=== PATIENT | male | born 1950 | race Caucasian/White ===

== ENCOUNTER 2020-06-20 13:00 | Emergency (ER) | payer OTHER, MEDICARE ==
[2020-06-20 13:56] LABS: Absolute Lymphocytes (CBC) 1.3 K/uL (0.7-4.9); Basophils % 0.7 % (0-1.3); Hematocrit 38.1 % (39.6-49.0); Lymphocytes % 17.2 % (15.3-44.8); MPV 9.7 fL (7.6-11.3); RBC Red Blood Cell Count 3.97 M/uL (4.33-5.43)
[2020-06-20 14:03] LABS: Protime INR 1.03
[2020-06-20 14:15] LABS: ALT/SGPT 30 U/L (12-78); AST/SGOT 20 U/L (15-37); Albumin 3.7 g/dL (3.4-5.0); Alkaline Phosphatase 46 U/L (45-117); BUN Blood Urea Nitrogen 15 mg/dL (7-18); Bicarbonate 24 mmol/L (21-32); Bilirubin Direct 0.2 mg/dL (0-0.2); Bilirubin Total 0.6 mg/dL (0.2-1.0); Glucose Level 143 mg/dL (74-106); NT PRO-BNP 60 pg/mL (<125); Potassium 3.6 mmol/L (3.5-5.1); Sodium Level 140 mmol/L (136-145); Troponin (Emerg Dept Use Only) < 0.02 ng/mL (0.0-0.045)
--- NOTE | 2020-06-20 14:28 | RAD REPORT ---
EXAM DESCRIPTION: US - Extremity Venous Uni Ltd - 06/20/2020 2:21 pm CLINICAL HISTORY: pain, swelling COMPARISON: None. TECHNIQUE: Real-time sonographic evaluation of the left lower extremity deep venous system was perfo rmed. FINDINGS: Normal compressibility, flow augmentation, phasic flow and spontaneous flow are identified in the left lower extremity common femoral, superficial femoral, popliteal and posterior tibial vein s. No intraluminal filling defects seen. IMPRESSION: No DVT in the left lower extremity.
--- NOTE | 2020-06-20 14:33 | ER ---
Nurse's Notes [facility] Name: Jignesh Buchanan Age: 70 yrs Sex: Male : 1950 Arrival Date: 06/20/2020 Time: 13:05 Bed 7 Private MD: Jefry Nagel B Diagnosis: Edema, unspecified Presentation: 06/20 13:19 Chief complaint: Patient states: "Today I noticed I have swelling in my ankle and lower aj1 leg I've had a little bit of tingling for the last week, and I have discomfort in the muscle of my calf. I didn't have any exercise or accident that could have caused it". Coronavirus screen: Client denies travel out of the [place] in the last 14 days. At this time, the client does not indicate any symptoms associated with coronavirus-19. Ebola Screen: Patient denies travel to an Ebola-affected area in the 21 days before illness onset. Initial Sepsis Screen: Does the patient meet any 2 criteria? No. Patient's initial sepsis screen is negative. Does the patient have a suspected source of infection? No. Patient's initial sepsis screen is negative. Risk Assessment: Do you want to hurt yourself or someone else? Patient reports no desire to harm self or others. Onset of symptoms was June 2020. 13:19 Method Of Arrival: Wheelchair aj1 13:19 Acuity: NERI 3 aj1 Triage Assessment: 13:24 General: Appears in no apparent distress. comfortable, Behavior is calm, cooperative, aj1 appropriate for age. Pain: Denies pain. Neuro: Level of Consciousness is awake, alert, obeys commands. Cardiovascular: Patient's skin is warm and dry. Respiratory: Airway is patent Respiratory effort is even, unlabored, Respiratory pattern is regular, symmetrical. Historical: - Allergies: 13:24 No Known Allergies; aj1 - Home Meds: 13:24 amlodipine 5 mg tab 1 tab once daily [Active]; doxazosin 4 mg oral tab 1 tab once daily aj1 [Active]; doxycycline hyclate 75 mg Oral TbEC 1 tab once daily [Active]; telmisartan-hydrochlorothiazid 80-12.5 mg oral tab 1 tab once daily [Active]; metformin 500 mg Oral Tb24 1 tab 2 times per day [Active]; rosuvastatin 5 mg oral tab 1 tab once daily [Active]; lunesta-eszopiclone 3 mg nightly [Active]; - PMHx: 13:24 Hypertension; Hyperlipidemia; pre-diabetic; aj1 - Immunization history:: Adult Immunizations up to date. - Social history:: Smoking status: Patient/guardian denies using tobacco. Screenin:00 Abuse screen: Denies threats or abuse. Nutritional screening: No deficits noted. em Tuberculosis screening: No symptoms or risk factors identified. Fall Risk None identified. Assessment: 14:00 General: Appears in no apparent distress. comfortable, Behavior is calm, cooperative, em appropriate for age, Denies fever. Pain: Complains of pain in left ospina and anterior aspect of left ankle Pain currently is 0 out of 10 on a pain scale. Neuro: Level of Consciousness is awake, alert, obeys commands, Oriented to person, place, time, situation, Appropriate for age. Cardiovascular: Capillary refill < 3 seconds Patient's skin is warm and dry. Respiratory: Airway is patent Respiratory effort is even, unlabored, Respiratory pattern is regular, symmetrical. GI: Patient currently denies nausea, vomiting. Derm: Skin is intact, is healthy with good turgor, Skin is pink, warm \\T\\ dry. Musculoskeletal: Capillary refill < 3 seconds, Range of motion: intact in all extremities, Swelling present in left ospina and anterior aspect of left ankle. 15:06 Reassessment: Patient appears in no apparent distress at this time. Patient and/or em family updated on plan of care and expected duration. Pain level reassessed. Patient is alert, oriented x 3, equal unlabored respirations, skin warm/dry/pink. Vital Signs: 13:19 BP 160 / 79; Pulse 81; Resp 18; Temp 97.6(TE); Pulse Ox 98% on R/A; Weight 110.68 kg aj1 (R); Height 6 ft. 0 in. (182.88 cm) (R); Pain 0/10; 14:19 BP 124 / 66; Pulse 65; Resp 17; Temp 97.8(TE); Pulse Ox 98% on R/A; mh5 15:05 BP 123 / 68; Pulse 61; Resp 18; Pulse Ox 96% on R/A; em 13:19 Body Mass Index 33.09 (110.68 kg, 182.88 cm) 1 ED Course: 13:05 Patient arrived in ED. as 13:06 Jefry Nagel MD is Private Physician. as 13:21 Triage completed. aj1 13:24 Arm band placed on Patient placed in an exam room. aj1 13:26 Pedro Pierce, RN is Primary Nurse. em 13:27 Gilberto De Souza PA is PHCP. jm 13:27 Nik Houston MD is Attending Physician. jmm 14:09 Patient has correct armband on for positive identification. Placed in gown. Bed in low mh5 position. Call light in reach. Side rails up X 1. Warm blanket given. Pillow given. campus monitor on. Pulse ox on. NIBP on. 14:09 Initial lab(s) drawn, by me, sent to lab. Inserted saline lock: 22 gauge in left 5 antecubital area, using aseptic technique. Blood collected. 14:22 US Extremity Venous Unilateral Ltd In Process Unspecified. EDMS 14:22 Ultrasound completed. Patient tolerated well. Notified [employer]AIL INTERIOR DESIGNER/PA . sg3 14:31 Jefry Nagel MD is Referral Physician. [facility] 15:05 No provider procedures requiring assistance completed. IV discontinued, intact, em bleeding controlled, No redness/swelling at site. Pressure dressing applied. Administered Medications: No medications were administered Outcome: 14:32 Discharge ordered by . [facility] 15:05 Discharged to home ambulatory. em 15:05 Condition: good 15:05 Discharge instructions given to patient, Instructed on discharge instructions, follow up and referral plans. Demonstrated understanding of instructions, follow-up care. 15:07 Patient left the ED. em Signatures: Dispatcher [employer] EDMS Zoraida Frank, RUFINO RN aj Gilberto De Souza PA PA jmm Munoz, Edgar, RUFINO RN Melba Franco Maria [facility] Eveline Lay sg3
--- NOTE | 2020-06-20 14:33 | EDPHYS ---
Physician Documentation [facility] Name: Jignesh Buchanan Age: 70 yrs Sex: Male : 1950 Arrival Date: 06/20/2020 Time: 13:05 Bed 7 Private MD: Jefry Nagel B ED Physician Nik Houston HPI: 06/20 13:31 This 70 yrs old Male presents to ER via Wheelchair with complaints of Leg jmm Swelling, Leg Pain. 13:31 The patient presents with swelling. Onset: The symptoms/episode began/occurred jmm gradually, 3 day(s) ago. Modifying factors: The symptoms are alleviated by nothing. the symptoms are aggravated by nothing. Associated signs and symptoms: Pertinent negatives fever. This is a 70 year old male with a history of htn, hlp, that presents to the ED with complaints of left leg pain and swelling beginnning approx 3 days ago. Denies fever, chest pain, shortness of breath. . Historical: - Allergies: 13:24 No Known Allergies; aj1 - Home Meds: 13:24 amlodipine 5 mg tab 1 tab once daily [Active]; doxazosin 4 mg oral tab 1 tab once daily aj1 [Active]; doxycycline hyclate 75 mg Oral TbEC 1 tab once daily [Active]; telmisartan-hydrochlorothiazid 80-12.5 mg oral tab 1 tab once daily [Active]; metformin 500 mg Oral Tb24 1 tab 2 times per day [Active]; rosuvastatin 5 mg oral tab 1 tab once daily [Active]; lunesta-eszopiclone 3 mg nightly [Active]; - PMHx: 13:24 Hypertension; Hyperlipidemia; pre-diabetic; aj1 - Immunization history:: Adult Immunizations up to date. - Social history:: Smoking status: Patient/guardian denies using tobacco. ROS: 13:31 Constitutional: Negative for fever, chills, and weight loss, Cardiovascular: Negative jmm for chest pain, palpitations, and edema, Respiratory: Negative for shortness of breath, cough, wheezing, and pleuritic chest pain. 13:31 MS/extremity: Positive for swelling. 13:31 All other systems are negative. Exam: 13:31 Constitutional: This is a well developed, well nourished patient who is awake, alert, jmm and in no acute distress. Head/Face: atraumatic. Eyes: EOMI, no conjunctival erythema appreciated ENT: Moist Mucus Membranes Neck: Trachea midline, Supple Chest/axilla: Normal chest wall appearance and motion. Cardiovascular: Regular rate and rhythm. No edema appreciated Respiratory: Normal respirations, no respiratory distress appreciated Abdomen/GI: Non distended, soft Back: Normal ROM Skin: General appearance color normal 13:31 Musculoskeletal/extremity: edema noted to the left lower leg, full dorsalis pulse, NVI. 13:31 Skin: Appearance: Color: normal in color. 13:31 Neuro: Orientation: is normal, Mentation: is normal, Memory: is normal. 13:31 Psych: Behavior/mood is pleasant, cooperative. Vital Signs: 13:19 BP 160 / 79; Pulse 81; Resp 18; Temp 97.6(TE); Pulse Ox 98% on R/A; Weight 110.68 kg aj1 (R); Height 6 ft. 0 in. (182.88 cm) (R); Pain 0/10; 14:19 BP 124 / 66; Pulse 65; Resp 17; Temp 97.8(TE); Pulse Ox 98% on R/A; mh5 15:05 BP 123 / 68; Pulse 61; Resp 18; Pulse Ox 96% on R/A; em 13:19 Body Mass Index 33.09 (110.68 kg, 182.88 cm) aj1 MDM: 13:31 Patient medically screened. [facility] 14:31 Data reviewed: vital signs, nurses notes. Counseling: I had a detailed discussion with [facility] the patient and/or guardian regarding: the historical points, exam findings, and any diagnostic results supporting the discharge/admit diagnosis, lab results, radiology results, the need for outpatient follow up, to return to the emergency department if symptoms worsen or persist or if there are any questions or concerns that arise at home. ED course: Patient is alert and non toxic in appearance in the ED. Patient is advised to follow up with pcp and otherwise given strict return precautions. Patient understood and agrees with the plan of care. . 06/20 13:39 Order name: Basic Metabolic Panel; Complete Time: 14:19 [facility] 06/20 13:39 Order name: CBC with Diff; Complete Time: 14:19 [facility] 06/20 13:39 Order name: LFT's; Complete Time: 14:19 [facility] 06/20 13:39 Order name: Magnesium; Complete Time: 14:19 [facility] 06/20 13:39 Order name: NT PRO-BNP; Complete Time: 14:19 [facility] 06/20 13:39 Order name: PT-INR; Complete Time: 14:19 [facility] 06/20 13:39 Order name: Troponin (emerg Dept Use Only); Complete Time: 14:19 [facility] 06/20 13:39 Order name: EKG; Complete Time: 13:40 [facility] 06/20 13:39 Order name: Cardiac monitoring; Complete Time: 13:44 [facility] 06/20 13:39 Order name: EKG - Nurse/Tech; Complete Time: 14:49 [facility] 06/20 13:39 Order name: IV Saline Lock; Complete Time: 14:49 [facility] 06/20 13:39 Order name: Labs collected and sent; Complete Time: 13:44 [facility] 06/20 13:39 Order name: O2 Per Protocol; Complete Time: 13:44 [facility] 06/20 13:39 Order name: US Extremity Venous Unilateral Ltd; Complete Time: 14:30 [facility] 06/20 13:39 Order name: O2 Sat Monitoring; Complete Time: 13:44 jm Administered Medications: No medications were administered Disposition: 06/21 06:06 Co-signature as Attending Physician, Nik Houston MD I agree with the assessment and [facility] plan of care. Disposition: 06/20/20 14:32 Discharged to Home. Impression: Edema, unspecified. - Condition is Stable. - Discharge Instructions: Peripheral Edema. - Medication Reconciliation Form, Thank You Letter, Antibiotic Education, Prescription Opioid Use form. - Follow up: Jefry Nagel MD; When: 2 - 3 days; Reason: Recheck today's complaints, Continuance of care, Re-evaluation by your physician. Signatures: Dispatcher [employer] Zoraida Leahy, RN RN aj1 Nik Houston MD MD cha Mickail, Joel, PA PA jmm Munoz, Edgar RN RN em Corrections: (The following items were deleted from the chart) 06/20 15:07 14:32 06/20/2020 14:32 Discharged to Home. Impression: Edema, unspecified. Condition is em Stable. Forms are Medication Reconciliation Form, Thank You Letter, Antibiotic Education, Prescription Opioid Use. Follow up: Jefry Nagel; When: 2 - 3 days; Reason: Recheck today's complaints, Continuance of care, Re-evaluation by your physician. bijan
[2020-06-20 15:28] VITALS: TEMP 97.8
[2020-06-20 15:29] VITALS: BP 123/68; O2SAT 96
== END 2020-06-20 15:07 | disposition home or self-care (01) ==
LOC: ER 13:00
DX: R60.9 Edema, unspecified (principal); I10 Essential (primary) hypertension; E78.5 Hyperlipidemia, unspecified; R73.03 Prediabetes
CPT/HCPCS: 36415; 80048; 80076; 83735; 83880; 84484; 85025; 85610; 93005; 93971; 99284

== ENCOUNTER 2020-06-23 18:28 | Emergency (ER) | payer OTHER, MEDICARE ==
[2020-06-23 21:36] LABS: Absolute Lymphocytes (CBC) 0.8 K/uL (0.7-4.9); Basophils % 0.8 % (0-1.3); Hematocrit 38.3 % (39.6-49.0); Lymphocytes % 11.5 % (15.3-44.8); MPV 9.3 fL (7.6-11.3)
[2020-06-23] MEDS ORDERED: NA CHLORIDE 0.9% 1,000 ML ONE (21:42)
[2020-06-23 21:55] LABS: Albumin 3.5 g/dL (3.4-5.0); Bilirubin Total 0.6 mg/dL (0.2-1.0); CKMB Creatine Kinase MB 1.7 ng/mL (0.3-3.6); Potassium 4.1 mmol/L (3.5-5.1); Protein, Total 7.3 g/dL (6.4-8.2)
--- NOTE | 2020-06-23 23:12 | ER ---
Nurse's Notes [facility] Name: Jignesh Buchanan Age: 70 yrs Sex: Male : 1950 Arrival Date: 06/23/2020 Time: 18:30 Bed 7 Private MD: Jefry Nagel B Diagnosis: Pain in left lower leg-11 cm fluid collection, hematoma;Synovial cyst of popliteal space [Rice], left knee Presentation: 06/23 19:09 Chief complaint: Patient states: seen here on Sunday, Dr. Nagel saw results and wants dm5 pt to get evaluated for blood clots. left leg swelling since Sunday. No history of blood clots, discomfort in calf muscle x 1 week. Coronavirus screen: Client denies travel out of the [place] in the last 14 days. At this time, the client does not indicate any symptoms associated with coronavirus-19. Ebola Screen: Patient negative for fever greater than or equal to 101.5 degrees Fahrenheit, and additional compatible Ebola Virus Disease symptoms Patient denies exposure to infectious person. Patient denies travel to an Ebola-affected area in the 21 days before illness onset. No symptoms or risks identified at this time. Initial Sepsis Screen: Does the patient meet any 2 criteria? No. Patient's initial sepsis screen is negative. Does the patient have a suspected source of infection? No. Patient's initial sepsis screen is negative. Risk Assessment: Do you want to hurt yourself or someone else? Patient reports no desire to harm self or others. Onset of symptoms was June 16, 2020. 19:09 Method Of Arrival: Ambulatory dm5 19:09 Acuity: NERI 2 dm5 Historical: - Allergies: 19:12 No Known Allergies; dm5 - Family history:: not pertinent. Screenin:45 Abuse screen: Denies threats or abuse. Nutritional screening: No deficits noted. jb4 Tuberculosis screening: No symptoms or risk factors identified. Fall Risk None identified. Assessment: 20:45 General: Appears in no apparent distress. comfortable, Behavior is calm, cooperative, jb4 appropriate for age. Pain: Denies pain. Neuro: Level of Consciousness is awake, alert, obeys commands, Oriented to person, place, time, situation. Cardiovascular: Patient's skin is warm and dry. Respiratory: Airway is patent Respiratory effort is even, unlabored, Respiratory pattern is regular, symmetrical. GI: No signs and/or symptoms were reported involving the gastrointestinal system. : No signs and/or symptoms were reported regarding the genitourinary system. EENT: No signs and/or symptoms were reported regarding the EENT system. Derm: Skin is intact, Skin is pink, warm \T\ dry. Musculoskeletal: Circulation, motion, and sensation intact. Range of motion: intact in all extremities, Swelling present in left foot and left leg. 22:00 Reassessment: Patient appears in no apparent distress at this time. Patient and/or jb4 family updated on plan of care and expected duration. Pain level reassessed. Patient is alert, oriented x 3, equal unlabored respirations, skin warm/dry/pink. 23:00 Reassessment: Patient appears in no apparent distress at this time. Patient and/or jb4 family updated on plan of care and expected duration. Pain level reassessed. Patient is alert, oriented x 3, equal unlabored respirations, skin warm/dry/pink. Vital Signs: 19:09 BP 169 / 73; Pulse 73; Resp 18; Temp 98.2(O); Pulse Ox 98% on R/A; Weight 65.32 kg (R); dm5 Height 6 ft. 0 in. (182.88 cm); Pain 0/10; 20:32 BP 168 / 80; Pulse 66; Resp 16; Pulse Ox 97% on R/A; Pain 0/10; jb4 22:00 BP 150 / 75; Pulse 68; Resp 16; Pulse Ox 98% on R/A; Pain 0/10; jb4 23:00 BP 151 / 77; Pulse 60; Resp 16; Pulse Ox 98% on R/A; jb4 19:09 Body Mass Index 19.53 (65.32 kg, 182.88 cm) dm5 ED Course: 18:30 Patient arrived in ED. ag5 18:31 Jefry Nagel MD is Private Physician. ag5 19:12 Triage completed. dm5 19:12 Arm band placed on Patient placed in waiting room. dm5 20:35 Leandro Jaramillo, RUFINO is Primary Nurse. mg2 20:45 Patient has correct armband on for positive identification. Bed in low position. Call jb4 light in reach. Side rails up X 1. Pulse ox on. NIBP on. 20:58 Nik Houston MD is Attending Physician. [facility] 21:20 Primary Nurse role handed off by Leandro Jaramillo RN jb4 21:20 Landon Adam, RN is Primary Nurse. jb4 22:08 CT Abd/Pelvis - IV Contrast Only: with left leg runoff In Process Unspecified. EDMS 22:12 Lower Extremity W/ Cont In Process Unspecified. EDMS 23:10 Jefry Nagel MD is Referral Physician. gabriela 23:10 Juarez Menchaca MD is Referral Physician. gabriela 23:10 Kev Hooper MD is Referral Physician. gabriela 23:42 No provider procedures requiring assistance completed. IV discontinued, intact, jb4 bleeding controlled, No redness/swelling at site. Pressure dressing applied. Administered Medications: 22:00 Drug: NS 0.9% 1000 ml Route: IV; Rate: 1 bolus; Site: right antecubital; jb4 23:00 Follow up: Response: No adverse reaction; IV Status: Completed infusion jb4 Outcome: 23:12 Discharge ordered by . [facility] 23:42 Discharged to home ambulatory, with crutches. jb4 23:42 Condition: stable 23:42 Discharge instructions given to patient, Instructed on discharge instructions, follow up and referral plans. no driving heavy equipment, Demonstrated understanding of instructions, follow-up care, medications, Prescriptions given X 23:42 Patient left the ED. jb4 Signatures: Dispatcher [employer] Michelle Gan, RN RN dm5 Nik Houston MD MD cha Bryson, James, RN RN jb4 Leandro Jaramillo RN RN [facility] Soriano [facility]
--- NOTE | 2020-06-23 23:13 | EDPHYS ---
Physician Documentation [facility] Name: Jignesh Buchanan Age: 70 yrs Sex: Male : 1950 Arrival Date: 06/23/2020 Time: 18:30 Bed 7 Private MD: Jefry Nagel B ED Physician Nik Houston HPI: 06/23 21:02 This 70 yrs old Male presents to ER via Ambulatory with complaints of Leg gabriela Problem - Blood Clots. 21:02 The patient presents with decreased range of motion, pain, swelling, tenderness. The gabriela complaints affect the lateral aspect of left knee, lateral aspect of left calf, posterior aspect of left knee, left calf, medial aspect of left knee and medial aspect of left calf. Context: The problem was sustained at an unknown site. Onset: The symptoms/episode began/occurred 3 day(s) ago. Modifying factors: The symptoms are alleviated by elevating leg, the symptoms are aggravated by movement, weight bearing. Associated signs and symptoms: The patient has no apparent associated signs or symptoms. Treatment prior to arrival includes: no previous treatment. Severity of symptoms: At their worst the symptoms were mild, moderate, in the emergency department the symptoms are unchanged. The patient has experienced a previous episode, last week. Historical: - Allergies: 19:12 No Known Allergies; dm5 - Family history:: not pertinent. ROS: 21:02 Constitutional: Negative for fever, chills, and weight loss, Eyes: Negative for injury, gabriela pain, redness, and discharge, ENT: Negative for injury, pain, and discharge, Neck: Negative for injury, pain, and swelling, Cardiovascular: Negative for chest pain, palpitations, and edema, Respiratory: Negative for shortness of breath, cough, wheezing, and pleuritic chest pain, Abdomen/GI: Negative for abdominal pain, nausea, vomiting, diarrhea, and constipation, Back: Negative for injury and pain, : Negative for injury, bleeding, discharge, and swelling, Skin: Negative for injury, rash, and discoloration, Neuro: Negative for headache, weakness, numbness, tingling, and seizure, Psych: Negative for depression, anxiety, suicide ideation, homicidal ideation, and hallucinations, Allergy/Immunology: Negative for hives, rash, and allergies, Endocrine: Negative for neck swelling, polydipsia, polyuria, polyphagia, and marked weight changes, Hematologic/Lymphatic: Negative for swollen nodes, abnormal bleeding, and unusual bruising. 21:02 MS/extremity: Positive for decreased range of motion, pain, swelling, tenderness, of the lateral aspect of left knee, lateral aspect of left calf, posterior aspect of left knee and left calf. Exam: 21:02 Constitutional: This is a well developed, well nourished patient who is awake, alert, gabriela and in no acute distress. Head/Face: Normocephalic, atraumatic. Eyes: Pupils equal round and reactive to light, extra-ocular motions intact. Lids and lashes normal. Conjunctiva and sclera are non-icteric and not injected. Cornea within normal limits. Periorbital areas with no swelling, redness, or edema. ENT: Nares patent. No nasal discharge, no septal abnormalities noted. Tympanic membranes are normal and external auditory canals are clear. Oropharynx with no redness, swelling, or masses, exudates, or evidence of obstruction, uvula midline. Mucous membranes moist. Neck: Trachea midline, no thyromegaly or masses palpated, and no cervical lymphadenopathy. Supple, full range of motion without nuchal rigidity, or vertebral point tenderness. No Meningismus. Chest/axilla: Normal chest wall appearance and motion. Nontender with no deformity. No lesions are appreciated. Cardiovascular: Regular rate and rhythm with a normal S1 and S2. No gallops, murmurs, or rubs. Normal PMI, no JVD. No pulse deficits. Respiratory: Lungs have equal breath sounds bilaterally, clear to auscultation and percussion. No rales, rhonchi or wheezes noted. No increased work of breathing, no retractions or nasal flaring. Abdomen/GI: Soft, non-tender, with normal bowel sounds. No distension or tympany. No guarding or rebound. No evidence of tenderness throughout. Back: No spinal tenderness. No costovertebral tenderness. Full range of motion. Neuro: Awake and alert, GCS 15, oriented to person, place, time, and situation. Cranial nerves II-XII grossly intact. Motor strength 5/5 in all extremities. Sensory grossly intact. Cerebellar exam normal. Normal gait. Psych: Awake, alert, with orientation to person, place and time. Behavior, mood, and affect are within normal limits. 21:02 Musculoskeletal/extremity: ROM: full active range of motion, full passive range of motion, Circulation is intact in all extremities. Sensation intact. Compartment Syndrome exam of affected extremity: is normal. Joints: All joints are normal except pain at rest, Weight bearing: able to fully bear weight, Tendon exam: specific tendon testing normal through active and passive range of motion DVT Exam: negative Homans' sign noted on exam, no appreciated bluish discoloration, no erythema, no increased warmth, pain, swelling, tenderness, Calves: are tender, on left, are not equal in size: left is larger than right. Vital Signs: 19:09 BP 169 / 73; Pulse 73; Resp 18; Temp 98.2(O); Pulse Ox 98% on R/A; Weight 65.32 kg (R); dm5 Height 6 ft. 0 in. (182.88 cm); Pain 0/10; 20:32 BP 168 / 80; Pulse 66; Resp 16; Pulse Ox 97% on R/A; Pain 0/10; jb4 22:00 BP 150 / 75; Pulse 68; Resp 16; Pulse Ox 98% on R/A; Pain 0/10; jb4 23:00 BP 151 / 77; Pulse 60; Resp 16; Pulse Ox 98% on R/A; jb4 19:09 Body Mass Index 19.53 (65.32 kg, 182.88 cm) dm5 MDM: 21:06 Differential diagnosis: contusion, tendonitis. Data reviewed: vital signs, nurses [facility] notes, lab test result(s), radiologic studies, CT scan, ultrasound. Data interpreted: editorial manager: rate is 66 beats/min, rhythm is regular, Pulse oximetry: on room air is 97 %. Test interpretation: by ED physician or midlevel provider:. Counseling: I had a detailed discussion with the patient and/or guardian regarding: the historical points, exam findings, and any diagnostic results supporting the discharge/admit diagnosis, lab results, radiology results, the need for outpatient follow up, for definitive care, a orthopedic surgeon. 21:13 Patient medically screened. gabriela 06/23 21:02 Order name: CBC with Diff 06/23 21:02 Order name: Comprehensive Metabolic Panel 06/23 21: Order name: Lipase 06/23 21:02 Order name: Ckmb 06/23 21:02 Order name: CK [facility] 06/23 21:02 Order name: CBC with Automated Diff; Complete Time: 23:03 [facility] 06/23 21:02 Order name: CT Abd/Pelvis - IV Contrast Only: with left leg runoff [facility] 06/23 21:02 Order name: Comprehensive Metabolic Panel; Complete Time: 23:03 [facility] 06/23 21:03 Order name: Lipase; Complete Time: 23:03 [facility] 06/23 21:03 Order name: CKMB Creatine Kinase MB; Complete Time: 23:03 [facility] 06/23 21:03 Order name: Creatine Phosphokinase; Complete Time: 23:03 [facility] 06/23 21:17 Order name: Lower Extremity W/ Cont [facility] 06/23 23:18 Order name: Urine Dipstick--Ancillary (enter results) [facility] 06/23 21:02 Order name: Urine Dipstick-Ancillary (obtain specimen); Complete Time: 23:39 [facility] 06/23 23:10 Order name: Crutch Training; Complete Time: 23:39 [facility] Administered Medications: 22:00 Drug: NS 0.9% 1000 ml Route: IV; Rate: 1 bolus; Site: right antecubital; jb4 23:00 Follow up: Response: No adverse reaction; IV Status: Completed infusion jb4 Disposition: 06/23/20 23:12 Discharged to Home. Impression: Pain in left lower leg - 11 cm fluid collection, hematoma, Synovial cyst of popliteal space [Rice], left knee. - Condition is Stable. - Discharge Instructions: Elastic Bandage and RICE, Rice Cyst, Musculoskeletal Pain, Cryotherapy, [id number], Cryotherapy. - Prescriptions for Tylenol- Codeine #3 300-30 mg Oral Tablet - take 2 tablets by ORAL route every 6 hours As needed; 20 tablet. - Medication Reconciliation Form, Thank You Letter, Antibiotic Education, Prescription Opioid Use form. - Follow up: Jefry Nagel MD; When: Tomorrow; Reason: Recheck today's complaints, Continuance of care, Re-evaluation by your physician. Follow up: Juarez Menchaca MD; When: 1 - 2 days; Reason: Recheck today's complaints, Re-evaluation by your physician. Follow up: Kev Hooper MD; When: 2 - 3 days; Reason: Recheck today's complaints, Re-evaluation by your physician. - Problem is new. - Symptoms have improved. Signatures: Dispatcher [employer] Michelle Gan, RN RN dm5 Nik Houston MD MD cha Bryson, James RN RN jb4 Corrections: (The following items were deleted from the chart) 23:13 23:12 06/23/2020 23:12 Discharged to Home. Impression: Pain in left lower leg - 11 cm gabriela fluid collection, hematoma. Condition is Stable. Forms are Medication Reconciliation Form, Thank You Letter, Antibiotic Education, Prescription Opioid Use. Follow up: Jefry Nagel; When: Tomorrow; Reason: Recheck today's complaints, Continuance of care, Re-evaluation by your physician. Follow up: Juarez Menchaca; When: 1 - 2 days; Reason: Recheck today's complaints, Re-evaluation by your physician. Follow up: Kev Hooper; When: 2 - 3 days; Reason: Recheck today's complaints, Re-evaluation by your physician. Problem is new. Symptoms have improved. [facility] 23:42 23:13 06/23/2020 23:12 Discharged to Home. Impression: Pain in left lower leg - 11 cm jb4 fluid collection, hematoma; Synovial cyst of popliteal space [Rice], left knee. Condition is Stable. Discharge Instructions: Elastic Bandage and RICE, Musculoskeletal Pain, Cryotherapy, [id number], Cryotherapy. Prescriptions for Tylenol-Codeine #3 300-30 mg Oral Tablet - take 2 tablets by ORAL route every 6 hours As needed; 20 tablet. and Forms are Medication Reconciliation Form, Thank You Letter, Antibiotic Education, Prescription Opioid Use. Follow up: Jefry Nagel; When: Tomorrow; Reason: Recheck today's complaints, Continuance of care, Re-evaluation by your physician. Follow up: Juarez Menchaca; When: 1 - 2 days; Reason: Recheck today's complaints, Re-evaluation by your physician. Follow up: Kev Hooper; When: 2 - 3 days; Reason: Recheck today's complaints, Re-evaluation by your physician. Problem is new. Symptoms have improved. gabriela
[2020-06-24 00:14] VITALS: TEMP 98.2
[2020-06-24 00:16] VITALS: O2SAT 98
[2020-06-24 00:18] VITALS: BP 151/77
[2020-06-24 01:13] LABS: Urine Blood NEGATIVE (NEG); Urine Glucose NEGATIVE (NEG); Urine Protein NEGATIVE (NEG); Urine Specific Gravity 1.015 (1.005-1.030); Urine pH 8.5 (5.0-7.0)
--- NOTE | 2020-06-24 09:16 | RAD REPORT ---
EXAM DESCRIPTION: CT - Lower Extremity W/ Cont - 06/24/2020 6:39 am CLINICAL HISTORY: Knee pain and swelling COMPARISON: None. TECHNIQUE: CT scan of the left knee was performed with IV contrast. This exam was performed accordin g to our departmental dose-optimization program, which includes automated exposure control, adjustmen t of the mA and/or kV according to patient size and/or use of iterative reconstruction technique. FINDINGS: No acute fracture or dislocation is seen. No knee joint effusion. There is diffuse subcuta neous edema surrounding the left lower extremity. Additionally, there is a focal fluid collection wit hin the medial gastrocnemius which measures approximately 11 x 4 x 3 cm and contains internal blood p roducts. The visualized tendons are intact. There are no foreign bodies. IMPRESSION: 11 cm fluid collection within the medial gastrocnemius muscle with internal blood produc ts which may represent intramuscular hematoma. However, an MRI is recommended to exclude an underlying neoplasm or other etiologies. Electronically signed by: Jeffrey Monroy MD 06/23/2020 10:44 PM CDT Due to temporary technical issues with the PACS/Fluency reporting system, reports are being signed by the in house radiologist without review as a courtesy to ensure prompt reporting. The interpreting r adiologist is fully responsible for the content of the report.
--- NOTE | 2020-06-24 09:19 | RAD REPORT ---
EXAM DESCRIPTION: CT - Abdomen Pelvis W Contrast - 06/24/2020 6:40 am CLINICAL HISTORY: The patient is 70 years old and is Male; ABD PAIN TECHNIQUE: Axial computed tomography images of the abdomen and pelvis with intravenous contrast. S agittal and coronal reformatted images were created and reviewed. This CT exam was performed using one or more of the following dose reduction techniques: automated exposure control, adjustment of t he mA and/or kV according to patient size, and/or use of iterative reconstruction technique. COMPARISON: No relevant prior studies available. FINDINGS: LUNG BASES: Scarring in the right lung base is present. PLEURAL SPACE: Trace bilateral pleural effusions are present. MEDIASTINUM: A small hiatal hernia is present. ABDOMEN: LIVER: The liver is enlarged and diffusely fatty. GALLBLADDER AND BILE DUCTS: The gallbladder is contracted. PANCREAS: No ductal dilation. No mass. SPLEEN: The spleen is prominent. ADRENALS: A 2.4 cm heterogeneous left adrenal gland nodule is present. KIDNEYS AND URETERS: Unremarkable. The kidneys enhance symmetrically. No obstructing renal or ur eteral calculus is seen. No hydronephrosis or hydroureter. No perinephric fluid or stranding. STOMACH AND BOWEL: The stomach is minimally distended with food contents. The small bowel is nor mal in caliber. Stool is present throughout colon. Scattered colonic diverticula are noted without [place] rrounding inflammation. There is no bowel obstruction. PELVIS: APPENDIX: The appendix is normal in caliber without surrounding inflammation. BLADDER: The bladder is well distended. REPRODUCTIVE: The prostate is prominent with prosthetic calcifications. ABDOMEN and PELVIS: INTRAPERITONEAL SPACE: Unremarkable. No free air. No significant fluid collection. BONES/JOINTS: Mild multilevel degenerative change of the spine is noted. Postsurgical change of the right femur is present with partial visualization of an intramedullary binu. SOFT TISSUES: The soft tissues are normal. VASCULATURE: Atherosclerosis of the vasculature is present. No abdominal aortic aneurysm. LYMPH NODES: Unremarkable. No enlarged lymph nodes. IMPRESSION: 1. Colonic diverticulosis 2. Trace pleural effusions. 3. Left adrenal gland nodule. Recommend further evaluation with unenhanced abdominal CT or MR. Alternatively, if there is a hi story of malignancy, consider PET. Electronically signed by: Marva Mckeon MD 06/23/2020 10:42 PM CDT Due to temporary technical issues with the PACS/Fluency reporting system, reports are being signed by the in house radiologist without review as a courtesy to ensure prompt reporting. The interpreting r adiologist is fully responsible for the content of the report.
== END 2020-06-23 23:42 | disposition home or self-care (01) ==
LOC: ER 18:28
DX: M71.22 Synovial cyst of popliteal space [Baker], left knee (principal); S80.12XA Contusion of left lower leg, initial encounter
CPT/HCPCS: 85025; 36415; 82550; 82553; 83690; 80053; 73701; 74177; Q9967 ×2; J7030; 81003

== ENCOUNTER 2020-12-24 16:02 | Emergency (ER) | payer OTHER, MEDICARE ==
[2020-12-24 20:41] LABS: Absolute Lymphocytes (CBC) 2.3 K/uL (0.7-4.9); Basophils % 0.7 % (0-1.3); Hematocrit 42.5 % (39.6-49.0); MPV 9.7 fL (7.6-11.3); RBC Red Blood Cell Count 4.41 M/uL (4.33-5.43)
[2020-12-24 21:01] LABS: Albumin 4.3 g/dL (3.4-5.0); Bilirubin Total 0.6 mg/dL (0.2-1.0); Potassium 3.7 mmol/L (3.5-5.1); Protein, Total 8.1 g/dL (6.4-8.2)
--- NOTE | 2020-12-24 21:18 | RAD REPORT ---
EXAM DESCRIPTION: CT - Forearm Right Wo Con - 12/24/2020 9:03 pm CLINICAL HISTORY: Arm pain/hematoma COMPARISON: None. TECHNIQUE: Unenhanced computed axial tomography of forearm obtained with coronal and sagittal recons truction All CT scans are performed using dose optimization technique as appropriate and may include automated exposure control or mA/KV adjustment according to patient size. FINDINGS: A 4 x 2 x 1 centimeter fluid collection with increased density consistent with a hematoma is present within the subcutaneous tissues of the anterolateral aspect of mid forearm. No gross abnormality of the musculature seen No fracture or dislocation IMPRESSION: 4 x 2 x 1 centimeter hematoma within the mid forearm
--- NOTE | 2020-12-24 21:55 | EDPHYS ---
Physician Documentation [facility] Name: Jignesh Buchanan Age: 70 yrs Sex: Male : 1950 Arrival Date: 12/24/2020 Time: 16:08 Bed 27 Private MD: Jefry Nagel B ED Physician Alena Marquez HPI: 12/24 21:50 This 70 yrs old Male presents to ER via Ambulatory with complaints of Arm ma2 Injury. 21:50 The patient or guardian complains of swelling. Onset: The symptoms/episode ma2 began/occurred suddenly, 1 hour(s) ago. Associated signs and symptoms: Pertinent positives: swelling, Pertinent negatives: decreased range of motion, deformity, erythema, numbness, tingling, vomiting, warmth. Severity of symptoms: At their worst the symptoms were mild, in the emergency department the symptoms have improved. Historical: - Allergies: 16:34 No Known Allergies; ll1 - PMHx: 16:34 Hyperlipidemia; Hypertension; pre-diabetic; ll1 - PSHx: 16:34 leg sx; ll1 - Immunization history:: Flu vaccine is up to date. - Social history:: Smoking status: Patient denies any tobacco usage or history of. Patient/guardian denies using alcohol, street drugs, The patient lives with family. - Family history:: not pertinent. ROS: 21:50 Constitutional: Negative for fever, chills, and weight loss. ma2 21:50 All other systems are negative. Exam: 21:50 Constitutional: This is a well developed, well nourished patient who is awake, alert, ma2 and in no acute distress. Chest/axilla: Normal chest wall appearance and motion. Nontender with no deformity. No lesions are appreciated. Cardiovascular: Regular rate and rhythm with a normal S1 and S2. No gallops, murmurs, or rubs. Normal PMI, no JVD. No pulse deficits. Respiratory: Lungs have equal breath sounds bilaterally, clear to auscultation and percussion. No rales, rhonchi or wheezes noted. No increased work of breathing, no retractions or nasal flaring. Abdomen/GI: Soft, non-tender, with normal bowel sounds. No distension or tympany. No guarding or rebound. No evidence of tenderness throughout. MS/ Extremity: mild 2x2 cm swelling on lateral right forearm, 10 cm proximal to wrist, there is fluid and fluctuence, no skin changes or cellulitis or tenderness.. Pulses equal, no cyanosis. Neurovascular intact. Full, normal range of motion. Neuro: Awake and alert, GCS 15, oriented to person, place, time, and situation. Cranial nerves II-XII grossly intact. Motor strength 5/5 in all extremities. Sensory grossly intact. Cerebellar exam normal. Normal gait. Vital Signs: 16:31 BP 182 / 86; Pulse 89; Resp 17; Temp 98.5; Pulse Ox 95% ; Weight 122.47 kg; Height 6 ll1 ft. 0 in. (182.88 cm); Pain 0/10; 20:30 BP 171 / 95; Pulse 80; Resp 16; Pulse Ox 98% ; rr5 21:49 BP 152 / 86; Pulse 58; Resp 17; Pulse Ox 98% ; rr5 22:14 BP 151 / 70; Pulse 59; Resp 16; Pulse Ox 99% ; rr5 16:31 Body Mass Index 36.62 (122.47 kg, 182.88 cm) ll1 MDM: 21:50 Differential diagnosis: contusion, abrasion, tendonitis, unlikley abscess as there is ma2 no tenderness and it came sudden after trauma. will get ct to make sure this is not connected to a large vein, swelling is not pulsatile this is unlikely an aneurysm. Data reviewed: vital signs, nurses notes. Counseling: I had a detailed discussion with the patient and/or guardian regarding: the historical points, exam findings, and any diagnostic results supporting the discharge/admit diagnosis, the presence of at least one elevated blood pressure reading (>120/80) during this emergency department visit. Response to treatment: the patient's symptoms have markedly improved after treatment. 21:54 Patient medically screened. ma2 12/24 20:19 Order name: CBC with Diff; Complete Time: 21:49 ma2 12/24 20:19 Order name: CMP; Complete Time: 21:49 ma2 12/24 20:58 Order name: Forearm Right Wo Con; Complete Time: 21:49 EDMS 12/24 21:50 Order name: Danyel Wrap; Complete Time: 22:14 ma2 Administered Medications: No medications were administered Disposition: 12/24/20 21:54 Discharged to Home. Impression: Nontraumatic hematoma of soft tissue - right forearm . - Condition is Stable. - Discharge Instructions: Hematoma, Hematoma, [id number]. - Medication Reconciliation Form, Thank You Letter, Antibiotic Education, Prescription Opioid Use form. - Follow up: Private Physician; When: Tomorrow; Reason: Continuance of care. Signatures: Dispatcher [employer] EDWI Alena Marquez MD MD ma2 Isidro Dickey RN RN rr5 Curtis Reece RN RN ll1 Corrections: (The following items were deleted from the chart) 20:39 20:24 CT RIGHT WRIST WO CONTRAST ordered. EDWI EDMS 20:58 20:39 Wrist Right Wo Cont ordered. [facility] EDWI 22:16 21:54 12/24/2020 21:54 Discharged to Home. Impression: Nontraumatic hematoma of soft rr5 tissue - right forearm . Condition is Stable. Forms are Medication Reconciliation Form, Thank You Letter, Antibiotic Education, Prescription Opioid Use. Follow up: Private Physician; When: Tomorrow; Reason: Continuance of care. [email or web address]
--- NOTE | 2020-12-24 21:55 | ER ---
Nurse's Notes [facility] Name: Jignesh Buchanan Age: 70 yrs Sex: Male : 1950 Arrival Date: 12/24/2020 Time: 16:08 Bed 27 Private MD: Jefry Nagel B Diagnosis: Nontraumatic hematoma of soft tissue-right forearm Presentation: 12/24 16:31 Chief complaint: Patient states: Was doing yard work 30 min [employer]. When he got into his [facility] house he noticed an abrasion to R FA with hematoma collection under abrasion. States he didn't remember hitting it on anything or any falls. Takes aspirin only, no blood thinners. Site cleaned with antibacterial soap and water, cleaned with alcohol wipe. non stick dressing used, secured with Kerlix. Tolerated well. Coronavirus screen: Client denies travel out of the [place] in the last 14 days. At this time, the client does not indicate any symptoms associated with coronavirus-19. Ebola Screen: Patient denies travel to an Ebola-affected area in the 21 days before illness onset. Initial Sepsis Screen: Does the patient meet any 2 criteria? No. Patient's initial sepsis screen is negative. Does the patient have a suspected source of infection? Yes: Skin breakdown/wound. Risk Assessment: Do you want to hurt yourself or someone else? Patient reports no desire to harm self or others. Onset of symptoms was December 24, 2020. 16:31 Method Of Arrival: Ambulatory [facility] 16:31 Acuity: NERI 4 ll1 Triage Assessment: 20:00 Injury Description: Bruise sustained to dorsal aspect of right forearm. rr5 Historical: - Allergies: 16:34 No Known Allergies; ll1 - PMHx: 16:34 Hyperlipidemia; Hypertension; pre-diabetic; ll1 - PSHx: 16:34 leg sx; ll1 - Immunization history:: Flu vaccine is up to date. - Social history:: Smoking status: Patient denies any tobacco usage or history of. Patient/guardian denies using alcohol, street drugs, The patient lives with family. - Family history:: not pertinent. Screenin:24 Abuse screen: Denies threats or abuse. Denies injuries from another. Nutritional rr5 screening: No deficits noted. Tuberculosis screening: No symptoms or risk factors identified. Fall Risk IV access (20 points). Total Romo Fall Scale indicates No Risk (0-24 pts). Assessment: 20:23 General: Appears in no apparent distress. comfortable, Behavior is calm, cooperative, rr5 appropriate for age. Pain: Denies pain. Neuro: Level of Consciousness is awake, alert, obeys commands, Oriented to person, place, time. Cardiovascular: Capillary refill < 3 seconds Patient's skin is warm and dry. Respiratory: Airway is patent Respiratory effort is even, unlabored, Respiratory pattern is regular, symmetrical. GI: No signs and/or symptoms were reported involving the gastrointestinal system. : No signs and/or symptoms were reported regarding the genitourinary system. EENT: No signs and/or symptoms were reported regarding the EENT system. Derm: Skin is fragile, is thin, Skin temperature is warm Bruising that is dark purple, on dorsal aspect of right forearm. Musculoskeletal: Capillary refill < 3 seconds, Swelling present in right arm and dorsal aspect of right forearm. 21:30 Reassessment: Patient appears in no apparent distress at this time. Patient and/or rr5 family updated on plan of care and expected duration. Pain level reassessed. Patient is alert, oriented x 3, equal unlabored respirations, skin warm/dry/pink. 22:15 Reassessment: Patient appears in no apparent distress at this time. Patient is alert, rr5 oriented x 3, equal unlabored respirations, skin warm/dry/pink. discharge instruction given and explained without complaints made. Vital Signs: 16:31 BP 182 / 86; Pulse 89; Resp 17; Temp 98.5; Pulse Ox 95% ; Weight 122.47 kg; Height 6 ll1 ft. 0 in. (182.88 cm); Pain 0/10; 20:30 BP 171 / 95; Pulse 80; Resp 16; Pulse Ox 98% ; rr5 21:49 BP 152 / 86; Pulse 58; Resp 17; Pulse Ox 98% ; rr5 22:14 BP 151 / 70; Pulse 59; Resp 16; Pulse Ox 99% ; rr5 16:31 Body Mass Index 36.62 (122.47 kg, 182.88 cm) ll1 ED Course: 16:08 Patient arrived in ED. mr 16:08 Jefry Nagel MD is Private Physician. mr 16:34 Triage completed. ll1 16:34 Arm band placed on. ll1 19:57 Isidro Dickey, RN is Primary Nurse. rr5 19:57 Alena Marquez MD is Attending Physician. ma2 20:15 No provider procedures requiring assistance completed. Inserted saline lock: 22 gauge rr5 in left antecubital area, using aseptic technique. ,using aseptic technique. inserted by kathy Blood collected. 20:24 Patient has correct armband on for positive identification. Bed in low position. Call rr5 light in reach. Pulse ox on. NIBP on. 20:30 Ice pack to injury. rr5 21:03 Forearm Right Wo Con In Process Unspecified. EDMS 22:10 Danyel wrap to dorsal aspect of right forearm. rr5 22:14 IV discontinued, intact, bleeding controlled, No redness/swelling at site. Pressure rr5 dressing applied. Administered Medications: No medications were administered Outcome: 21:54 Discharge ordered by . ma2 22:15 Discharged to home ambulatory. rr5 22:15 Condition: stable 22:15 Discharge instructions given to patient, Instructed on discharge instructions, follow up and referral plans. Demonstrated understanding of instructions, follow-up care. 22:16 Patient left the ED. rr5 Signatures: Dispatcher [employer] [facility] Jannette Martin mr Alena Marquez MD MD ia2 Isidro Dickey, RN RN rr5 Curtis Reece RN RN ll1 Corrections: (The following items were deleted from the chart) 20:24 20:23 Musculoskeletal: Capillary refill < 3 seconds, rr5 rr5
[2020-12-25 15:05] VITALS: TEMP 98.5
[2020-12-25 15:07] VITALS: BP 151/70; O2SAT 99
== END 2020-12-24 22:16 | disposition home or self-care (01) ==
LOC: ER 16:02
DX: M79.81 Nontraumatic hematoma of soft tissue (principal); E78.5 Hyperlipidemia, unspecified; I10 Essential (primary) hypertension; R73.03 Prediabetes
CPT/HCPCS: 36415; 73200; 80053; 85025; 99284

== ENCOUNTER 2021-05-25 09:40 | Inpatient (IN) | payer OTHER, MEDICARE ==
--- NOTE | 2021-05-25 12:50 | RAD REPORT ---
EXAM DESCRIPTION: RAD - Chest Single View - 05/25/2021 12:37 pm CLINICAL HISTORY: COUGH Chest pain. COMPARISON: Abdomen 1 View (KUB) dated 02/07/2018; Chest Single View dated 06/16/2016; CHEST SINGLE EW dated 11/15/2015; CHEST PA AND LAT 2 VIEW dated 07/28/2011 FINDINGS: Portable technique limits examination quality. Mild linear opacities are present in the left lung base likely subsegmental atelectasis. The lungs ar e otherwise clear. The heart is normal in size. No displaced fractures.
--- NOTE | 2021-05-25 12:55 | RAD REPORT ---
EXAM DESCRIPTION: CTAbdomen Pelvis W Contrast - 05/25/2021 12:43 pm CLINICAL HISTORY: Abdominal pain. ABD PAIN COMPARISON: Abdomen Pelvis W Contrast dated 06/23/2020 TECHNIQUE: Biphasic CT imaging of the abdomen and pelvis was performed with 100 ml non-ionic IV cont rast. All CT scans are performed using dose optimization technique as appropriate and may include automated exposure control or mA/KV adjustment according to patient size. FINDINGS: Mild linear subsegmental atelectasis is present in the right lung base.Small hiatal hernia . Diffuse fatty liver is present. Gallbladder is distended with surrounding inflammation wall thickenin g. Several stones are likely present in the gallbladder. Tiny air bubbles are seen within the gallbla dder and biliary tree. The spleen, pancreas, right adrenal gland and kidneys are within normal limits. 25 mm left adrenal ma ss is unchanged. Moderate sigmoid diverticulosis is seen without diverticulitis. Moderate prostatomegaly. No free flui d, bowel obstruction, free air or abscess seen. The appendix is normal. Small fat containing umbilica l hernia. No evidence of significant lymphadenopathy. No suspicious bony findings. IMPRESSION: Acute cholecystitis.
[2021-05-25 13:08] LABS: Absolute Lymphocytes (CBC) 0.2 K/uL (0.7-4.9); Basophils % 0.1 % (0-1.3); Hematocrit 38.9 % (39.6-49.0); Lymphocytes % 1.7 % (15.3-44.8); MPV 9.3 fL (7.6-11.3); RBC Red Blood Cell Count 4.05 M/uL (4.33-5.43)
[2021-05-25 13:09] LABS: Protime INR 1.46
--- NOTE | 2021-05-25 13:12 | RAD REPORT ---
EXAM DESCRIPTION: US - Abdomen Exam Limited - 05/25/2021 1:01 pm CLINICAL HISTORY: ABD PAIN COMPARISON: No comparisons FINDINGS: The gallbladder demonstrates significant distention with multiple stones. Gallbladder wall is edematous and thickened to 15 mm. The common bile duct is normal measuring 5-6 mm. The liver demonstrates no findings of intrahepatic biliary dilatation. IMPRESSION: Acute cholecystitis.
[2021-05-25] MEDS ORDERED: MORPHINE 2 MG/ML SYR ONE (13:27)
[2021-05-25] MEDS ORDERED: NA CHLORIDE 0.9% 1,000 ML ONE ×2 (13:28→17:43)
[2021-05-25] MEDS ORDERED: PIPER/TAZO/NS 3.375gm 3.375 GM/100 ML BAG ONE (13:28)
[2021-05-25] MEDS ORDERED: NA CHLORIDE 0.9% 500 ML ONE (13:28)
[2021-05-25] MEDS ORDERED: FAMOTIDINE 20 MG/2 ML VIAL IV ONE (13:28)
[2021-05-25] MEDS ORDERED: ONDANSETRON 4 MG/2 ML VIAL ONE ×2 (13:28→17:12)
--- NOTE | 2021-05-25 13:53 | P.HP ---
Date of Service: 05/25/21 PC: This 70-year-old male presented to emergency room with severe right upper quadrant abdominal pain for diagnosis and treatment. HPC: Patient has been seen at a freestanding ER yesterday. He was found to have acute on chronic cholecystitis with cholelithiasis. He was scheduled for follow-up appointment with me in the morning however he could no longer stand the pain came to the hospital for evaluation and treatment PSHx: NAD PMHx: Coronary artery disease, hypercholesterolemia Social Hx: No known allergies Sys R: This patient had Covid last week. Today he is not shortness of breath cough or wheeze. No urinary complaints. O/E: Awake alert comfortable HEENT: Not jaundiced Chest: Air entry equal bilaterally Abd: Tender with guarding and rebound in the right upper quadrant, positive Schneider sign [place]: Intact Data: CT scan and ultrasound reviewed, consistent with clinical findings of acute on chronic cholecystitis with cholelithiasis Impression: Acute on chronic cholecystitis with cholelithiasis Plan: I will take him to the operating room for laparoscopic possible open cholecystectomy with cholangiogram. Risks of this procedure have been discussed. The possibility of bleeding, infection, injury to bowel been described. The possible need for open and/or further surgeries and procedures was discussed. He understands and wants us to proceed.
--- NOTE | 2021-05-25 13:59 | ER ---
Nurse's Notes [facility] Name: Jignesh Buchanan Age: 70 yrs Sex: Male : 1950 Arrival Date: 05/25/2021 Time: 09:42 Bed 9 Private MD: Jefry Nagel B Diagnosis: Abdominal tenderness;Acute cholecystitis;Other cholelithiasis with obstruction;Elevated white blood cell count;Coronavirus infection, unspecified Presentation: 05/25 10:46 Chief complaint: Patient states: Diagnosed with COVID-19 last week, pt states "I had aa5 abdominal cramps last week and they went away and yesterday it came back, I went to [place] ER and they said it was my gallbladder but I've been trying to call the surgeon without success". Pt denies nausea/vomiting/diarrhea. Coronavirus screen: Client reports previous positive COVID test result. Ebola Screen: Patient negative for fever greater than or equal to 101.5 degrees Fahrenheit, and additional compatible Ebola Virus Disease symptoms. Initial Sepsis Screen: Does the patient meet any 2 criteria? No. Patient's initial sepsis screen is negative. Does the patient have a suspected source of infection? No. Patient's initial sepsis screen is negative. Risk Assessment: Do you want to hurt yourself or someone else? Patient reports no desire to harm self or others. Onset of symptoms was May 2021. 10:46 Method Of Arrival: Ambulatory aa5 10:46 Acuity: NERI 3 aa5 Triage Assessment: 21:17 General: Appears Very Jandiace. Behavior is calm, cooperative, appropriate for age, kg quiet. Pain: Complains of pain in abdomen. Historical: - Allergies: 10:48 No Known Allergies; aa5 - PMHx: 10:48 Hyperlipidemia; Hypertension; pre-diabetic; aa5 - PSHx: 10:48 left leg; althea shoulders; aa5 - Immunization history:: Client reports receiving the 2nd dose of the Covid vaccine, Date received: May 14, 2021. - Social history:: Smoking status: Patient denies any tobacco usage or history of. - Family history:: not pertinent. Screenin:30 Abuse screen: Denies threats or abuse. Denies injuries from another. Nutritional kg screening: No deficits noted. Tuberculosis screening: No symptoms or risk factors identified. Fall Risk None identified. Assessment: 18:12 Reassessment: Pt left for Surgery, report given to preop nurse. kg 18:13 Reassessment: Pt returned from surgery. Report received from Elida JOY. Pt vital signs kg are stable, pain controlled, A\\T\\O x 4. Vital Signs: 10:46 BP 120 / 64; Pulse 74; Resp 20 S; Temp 98.1(O); Pulse Ox 97% on R/A; Weight 113.4 kg aa5 (R); Height 6 ft. 0 in. (182.88 cm) (R); Pain 8/10; 18:10 BP 129 / 59; Pulse 71; Resp 20; Pulse Ox 97% on 2 lpm NC; Pain 5/10; kg 18:30 BP 127 / 60; Pulse 74; Resp 20; Pulse Ox 97% on 2 lpm NC; kg 18:42 BP 118 / 61; Pulse 74; Resp 20; Pulse Ox 99% on 3 lpm NC; Pain 3/10; ch5 19:00 BP 129 / 59; Pulse 77; Resp 20; Pulse Ox 98% on R/A; kg 19:30 BP 124 / 68; Pulse 81; Resp 20; Pulse Ox 97% ; kg 19:45 BP 110 / 63; Pulse 77; Resp 20; Pulse Ox 97% on R/A; kg 20:00 BP 120 / 65; Pulse 77; Resp 20; Pulse Ox 98% on 2 lpm NC; kg 20:30 BP 118 / 61; Pulse 77; Resp 20; Pulse Ox 99% on 2 lpm NC; kg 10:46 Body Mass Index 33.91 (113.40 kg, 182.88 cm) aa5 ED Course: 09:42 Patient arrived in ED. as 09:43 Jefry Nagel MD is Private Physician. as 10:46 Arm band placed on. aa5 10:48 Triage completed. aa5 12:04 Nik Houston MD is Attending Physician. gabriela 12:30 Patient has correct armband on for positive identification. kg 12:30 No provider procedures requiring assistance completed. kg 12:37 XRAY Chest (1 view) In Process Unspecified. EDMS 12:43 CT Abd/Pelvis - IV Contrast Only In Process Unspecified. EDMS 12:44 Inserted saline lock: 22 gauge in left antecubital area, using aseptic technique. Blood dh4 collected. 12:52 Minnie Serrano, RN is Primary Nurse. kg 13:01 US Abdomen Limited In Process Unspecified. EDMS 13:55 Landon Grullon MD is Hospitalizing Provider. gabriela 21:16 Report given to Med Surg nurse. kg Administered Medications: 13:23 Drug: NS 0.9% 1000 ml Route: IV; Rate: 125 ml/hr; Site: left antecubital; kg 18:11 Not Given (Pt left for surgeyy): morphine 2 mg IVP once; (PAIN>8) RASS on ADMN: kg Combtv4, Very Agttd3, Agttd2, Rstlss1, AlertClm0, Drwsy-1, LtSdtn-2, ModSdtn-3, DpSdtn-4, UnArsble-5 x2 18:11 Not Given (Pt left for surgeryy): Zofran (Ondansetron) 4 mg IVP once; over 2 minutes kg 18:12 Not Given (pt left for surgeryy): NS 0.9% 500 ml IV at bolus once kg 18:12 Not Given (Given to preop nursee): Zosyn (piperacillin-tazobactam) 3.375 grams IVPB kg once over 60 mins; (mix in NS 100 mL) Outcome: 12:30 Admitted to Med/surg accompanied by nurse, via wheelchair, room 429, Report called to kg Med Surg Nurse Freeman 13:59 Decision to Hospitalize by Provider. gabriela 21:18 Patient left the ED. kg Signatures: Dispatcher [employer] ED[facility] Nik Houston MD MD cha Martinez, Amelia as Calderon, Audri, RN RN aa5 Andriy Carmona 4 Minnie Serrano, RN RN Tk Carlin, RN RN ch5 Corrections: (The following items were deleted from the chart) 10:50 10:48 Immunization history: Client reports receiving the 2nd dose of the Covid vaccine, kashif rowland
--- NOTE | 2021-05-25 14:00 | EDPHYS ---
Physician Documentation [facility] Name: Jignesh Buchanan Age: 70 yrs Sex: Male : 1950 Arrival Date: 05/25/2021 Time: 09:42 Bed 9 Private MD: Jefry Nagel B ED Physician Nik Houston HPI: 05/25 13:51 This 70 yrs old Male presents to ER via Ambulatory with complaints of gabriela Abdominal Pain, Epigastric Pain, covid+. 13:51 The patient presents with abdominal pain in the upper abdomen, in the lower abdomen, gabriela abdominal distention in the upper abdomen, in the lower abdomen. Onset: The symptoms/episode began/occurred 3 day(s) ago. The symptoms do not radiate. Associated signs and symptoms: Pertinent positives: nausea and vomiting. The symptoms are described as dull, sharp. Modifying factors: The symptoms are alleviated by nothing, the symptoms are aggravated by food, movement, pressure. Severity of pain: At its worst the pain was moderate in the emergency department the pain is unchanged. The patient has not experienced similar symptoms in the past. Historical: - Allergies: 10:48 No Known Allergies; aa5 - PMHx: 10:48 Hyperlipidemia; Hypertension; pre-diabetic; aa5 - PSHx: 10:48 left leg; althea shoulders; aa5 - Immunization history:: Client reports receiving the 2nd dose of the Covid vaccine, Date received: May 14, 2021. - Social history:: Smoking status: Patient denies any tobacco usage or history of. - Family history:: not pertinent. ROS: 13:51 Constitutional: Negative for fever, chills, and weight loss, Eyes: Negative for injury, gabriela pain, redness, and discharge, ENT: Negative for injury, pain, and discharge, Neck: Negative for injury, pain, and swelling, Cardiovascular: Negative for chest pain, palpitations, and edema, Respiratory: Negative for shortness of breath, cough, wheezing, and pleuritic chest pain, Back: Negative for injury and pain, : Negative for injury, bleeding, discharge, and swelling, MS/Extremity: Negative for injury and deformity, Skin: Negative for injury, rash, and discoloration, Neuro: Negative for headache, weakness, numbness, tingling, and seizure, Psych: Negative for depression, anxiety, suicide ideation, homicidal ideation, and hallucinations, Allergy/Immunology: Negative for hives, rash, and allergies, Endocrine: Negative for neck swelling, polydipsia, polyuria, polyphagia, and marked weight changes, Hematologic/Lymphatic: Negative for swollen nodes, abnormal bleeding, and unusual bruising. 13:51 Abdomen/GI: Positive for abdominal pain, of the right upper quadrant and left upper quadrant. Exam: 13:51 Constitutional: This is a well developed, well nourished patient who is awake, alert, gabrieal and in no acute distress. Head/Face: Normocephalic, atraumatic. Eyes: Pupils equal round and reactive to light, extra-ocular motions intact. Lids and lashes normal. Conjunctiva and sclera are non-icteric and not injected. Cornea within normal limits. Periorbital areas with no swelling, redness, or edema. ENT: Nares patent. No nasal discharge, no septal abnormalities noted. Tympanic membranes are normal and external auditory canals are clear. Oropharynx with no redness, swelling, or masses, exudates, or evidence of obstruction, uvula midline. Mucous membranes moist. Neck: Trachea midline, no thyromegaly or masses palpated, and no cervical lymphadenopathy. Supple, full range of motion without nuchal rigidity, or vertebral point tenderness. No Meningismus. Chest/axilla: Normal chest wall appearance and motion. Nontender with no deformity. No lesions are appreciated. Cardiovascular: Regular rate and rhythm with a normal S1 and S2. No gallops, murmurs, or rubs. Normal PMI, no JVD. No pulse deficits. Respiratory: Lungs have equal breath sounds bilaterally, clear to auscultation and percussion. No rales, rhonchi or wheezes noted. No increased work of breathing, no retractions or nasal flaring. Back: No spinal tenderness. No costovertebral tenderness. Full range of motion. Male : Normal genitalia with no discharge or lesions. Skin: Warm, dry with normal turgor. Normal color with no rashes, no lesions, and no evidence of cellulitis. MS/ Extremity: Pulses equal, no cyanosis. Neurovascular intact. Full, normal range of motion. Neuro: Awake and alert, GCS 15, oriented to person, place, time, and situation. Cranial nerves II-XII grossly intact. Motor strength 5/5 in all extremities. Sensory grossly intact. Cerebellar exam normal. Normal gait. Psych: Awake, alert, with orientation to person, place and time. Behavior, mood, and affect are within normal limits. 13:51 Abdomen/GI: Inspection: distension, Bowel sounds: normal, Palpation: moderate abdominal tenderness, in the epigastric area and right upper quadrant, Liver: tenderness, that is moderate, Hernia: not appreciated. Vital Signs: 10:46 BP 120 / 64; Pulse 74; Resp 20 S; Temp 98.1(O); Pulse Ox 97% on R/A; Weight 113.4 kg aa5 (R); Height 6 ft. 0 in. (182.88 cm) (R); Pain 8/10; 18:10 BP 129 / 59; Pulse 71; Resp 20; Pulse Ox 97% on 2 lpm NC; Pain 5/10; kg 18:30 BP 127 / 60; Pulse 74; Resp 20; Pulse Ox 97% on 2 lpm NC; kg 18:42 BP 118 / 61; Pulse 74; Resp 20; Pulse Ox 99% on 3 lpm NC; Pain 3/10; ch5 19:00 BP 129 / 59; Pulse 77; Resp 20; Pulse Ox 98% on R/A; kg 19:30 BP 124 / 68; Pulse 81; Resp 20; Pulse Ox 97% ; kg 19:45 BP 110 / 63; Pulse 77; Resp 20; Pulse Ox 97% on R/A; kg 20:00 BP 120 / 65; Pulse 77; Resp 20; Pulse Ox 98% on 2 lpm NC; kg 20:30 BP 118 / 61; Pulse 77; Resp 20; Pulse Ox 99% on 2 lpm NC; kg 10:46 Body Mass Index 33.91 (113.40 kg, 182.88 cm) aa5 MDM: 12:04 Patient medically screened. gabriela 20:07 Differential diagnosis: bowel obstruction, cholecystitis, Cholelithiasis, gabriela diverticulitis, non-specific abd pain, pancreatitis. Data reviewed: vital signs, nurses notes, radiologic studies, CT scan, ultrasound. Data interpreted: panel monitor: rate is 74 beats/min, rhythm is regular, Pulse oximetry: on room air is 99 %. Test interpretation: by ED physician or midlevel provider: plain radiologic studies. Counseling: I had a detailed discussion with the patient and/or guardian regarding: the historical points, exam findings, and any diagnostic results supporting the discharge/admit diagnosis, lab results, the need for further work-up and treatment in the hospital. 20:08 ED course: pt was admitted to dr moreno and taken to the or before all labs were back. [facility] just now calling with abnormal results. 20:11 ED course: lab , ivo called , initial labs pending for 7 hours, analyzer issues. [facility] 05/25 12:20 Order name: Basic Metabolic Panel [facility] 05/25 12:20 Order name: CBC with Diff; Complete Time: 20:07 [facility] 05/25 12:20 Order name: LFT's [facility] 05/25 12:20 Order name: Magnesium [facility] 05/25 12:20 Order name: NT PRO-BNP [facility] 05/25 12:20 Order name: PT-INR; Complete Time: 13:47 [facility] 05/25 12:20 Order name: Troponin (emerg Dept Use Only) [facility] 05/25 12:20 Order name: XRAY Chest (1 view); Complete Time: 13:47 [facility] 05/25 12:20 Order name: Lipase [facility] 05/25 12:20 Order name: CT Abd/Pelvis - IV Contrast Only; Complete Time: 13:47 [facility] 05/25 14:51 Order name: CBC Smear Scan; Complete Time: 20:07 [facility] 05/25 14:57 Order name: SARS-COV-2 RT PCR; Complete Time: 20:07 [facility] 05/25 16:03 Order name: CREATININE WHOLE BLOOD; Complete Time: 20:07 [facility] 05/25 12:20 Order name: EKG; Complete Time: 12:21 [facility] 05/25 12:20 Order name: IV Saline Lock; Complete Time: 12:45 [facility] 05/25 12:20 Order name: Labs collected and sent; Complete Time: 12:45 [facility] 05/25 12:20 Order name: O2 Per Protocol; Complete Time: 12:44 [facility] 05/25 12:20 Order name: O2 Sat Monitoring; Complete Time: 12:44 [facility] 05/25 12:20 Order name: US Abdomen Limited; Complete Time: 13:47 [facility] 05/25 17:55 Order name: RAD; Complete Time: 20:07 EDMS Administered Medications: 13:23 Drug: NS 0.9% 1000 ml Route: IV; Rate: 125 ml/hr; Site: left antecubital; kg 18:11 Not Given (Pt left for surgeyy): morphine 2 mg IVP once; (PAIN>8) RASS on ADMN: kg Combtv4, Very Agttd3, Agttd2, Rstlss1, AlertClm0, Drwsy-1, LtSdtn-2, ModSdtn-3, DpSdtn-4, UnArsble-5 x2 18:11 Not Given (Pt left for surgeryy): Zofran (Ondansetron) 4 mg IVP once; over 2 minutes kg 18:12 Not Given (pt left for surgeryy): NS 0.9% 500 ml IV at bolus once kg 18:12 Not Given (Given to preop nursee): Zosyn (piperacillin-tazobactam) 3.375 grams IVPB kg once over 60 mins; (mix in NS 100 mL) Disposition Summary: 05/25/21 13:59 Hospitalization Ordered Hospitalization Status: Observation gabriela Provider: Landon Moreno cha Condition: Stable gabriela Problem: new gabriela Symptoms: have improved gabriela Bed/Room Type: Standard gabriela Location: Telemetry/MedSurg (observation)(05/25/21 19:35) tl1 Room Assignment: 429(05/25/21 19:35) tl1 Diagnosis - Abdominal tenderness gabriela - Acute cholecystitis gabriela - Other cholelithiasis with obstruction gabriela - Elevated white blood cell count gabriela - Coronavirus infection, unspecified gabriela Forms: - Medication Reconciliation Form gabriela - SBAR form gabriela Signatures: Dispatcher [employer] EDMS Sierra Zamarripa Diana RN Nik Bingham MD MD cha Calderon, Audri, RN RN aa5 Misti Bridges RN RN tl1 Minnie Serrano RN RN kg Corrections: (The following items were deleted from the chart) 10:50 10:48 Immunization history: Client reports receiving the 2nd dose of the Covid vaccine, aaGarth aaGarth 13:49 12:22 CORONAVIRUS+ ordered. EDMS EDMS 18:48 13:59 Operating Room gabriela bd 18:48 13:59 gabriela bd 19:02 18:48 Telemetry/MedSurg (observation) bd dw 19:02 18:48 426 bd dw 19:35 19:02 BR ER HOLD dw tl1 19:35 19:02 ERHOLD- dw tl1
[2021-05-25] MEDS ORDERED: ALBUTEROL 2.5 MG/3 ML NEB SOL ONE ×2 (14:08→17:34)
[2021-05-25] MEDS ORDERED: propofoL 200 MG/20 ML VIAL IV ONE (14:30)
[2021-05-25] MEDS ORDERED: FENTANYL CITR 100 MCG/2 ML ONE (14:31)
[2021-05-25] MEDS ORDERED: LIDOCAINE 1% MPF 5 ML VIAL ONE (14:34)
[2021-05-25] MEDS ORDERED: ROCURONIUM 50 MG/5 ML VIAL IV ONE ×2 (14:34→16:38)
[2021-05-25] MEDS ORDERED: BUPIVACAINE 0.5% PF 10 ML VIAL ONE (14:42)
[2021-05-25] MEDS ORDERED: PIPER/TAZO/NS 3.375gm 3.375 GM/100 ML BAG IV ONE (14:45)
[2021-05-25 14:51] LABS: Blood Morphology Comment NOT SEEN (NOT SEEN); Platelet Estimate DECR; White Blood Cell Scan OK (OK)
[2021-05-25] MEDS ORDERED: NA CHLORIDE 0.9% 1,000 ML IV SCH (15:33)
[2021-05-25] MEDS ORDERED: D5 0.45 NS 1,000 ML IV SCH (15:33)
[2021-05-25] MEDS ORDERED: ONDANSETRON 4 MG/2 ML VIAL IV PRN ×2 (15:33→17:30)
[2021-05-25] MEDS ORDERED: ACETAMINOPHEN 325 MG TABLET PO PRN (15:37)
--- NOTE | 2021-05-25 17:07 | P.OP ---
Preoperative diagnosis: Acute cholecystitis with cholelithiasis Postoperative diagnosis: The same Primary procedure: Laparoscopic cholecystectomy Secondary procedure: Cholangiogram Other procedure(s): Roberto block Anesthesia: General Estimated blood loss: Less than 20 cc Specimen: 1 gallbladder Operative Technique: The patient was brought to the operating room and placed supine on the table. After the induction of adequate general endotracheal anesthesia, the abdomen was prepped with a DuraPrep solution, and the patient was draped in usual aseptic manner. A subumbilical incision was made. This was brought down through the skin and subcutaneous tissue. The Visiport was now used to enter the peritoneal cavity and created pneumoperitoneum to approximately 12 mmHg. Under direct vision a 5 mm trocar was placed in the upper midline, and 2 other 5 mm trochars on the right lateral side of the abdomen. With the patient placed in reverse Trendelenburg and the table turned towards the left we were able to visualize the right upper quadrant. We could see an acute inflammatory process. The omentum was adherent to the inferior edge of the right lobe of the liver, covering the gallbladder itself. This extended all the way over the past the ligament. These adhesions were gently taken down using blunt and sharp dissection. At this point a Roberto block of the anterior abdominal wall was performed on both sides. This was done using 0.25% Marcaine. Attention was turned back to the gallbladder itself. After dissecting down some of the omentum off of the serosal surface of the fundus of the gallbladder we could see the gallbladder was markedly distended and inflamed. The aspirating needle was used to decompress the gallbladder. We encountered a large amount of bloody drainage from the gallbladder itself. Having now partially deflated the gallbladder was possible to place a grasper on the fundus. Gentle dissection of this omentum off of the gallbladder allowed us to come down by Grossman's pouch. At this point further dissection s2 dissect medially. The cystic artery was identified. It was clipped and divided in the usual manner. The gallbladder was now partially dissected off the liver so as to allow us to rotate and rolled the Grossman's pouch and 80 upward direction. Having isolated the Grossman's pouch the cystic duct itself was identified. Having obtained the critical view we were now able to continue dissecting inferiorly taking care to define the junction between the gallbladder and the cystic duct. A clip at this place was placed up on the gallbladder. An opening was made into the cystic duct through which we obtained a cholangiogram. The injection of 10 cc of 50-50 contrast went very easily. However our fluoroscopy did not clearly demonstrate free flow of contrast into the duodenum. The extrahepatic biliary tree is dilated. At this point the balloon on the cholangiocatheter was deflated. We now passed the catheter which went easily into the duodenum. The catheter was now removed. Once again we repeated our cholangiogram with contrast. Once again we demonstrated that we were in the cystic duct, the common bile duct was intact, but did not have any free flow into the duodenum. The catheter was now placed into the common bile duct. It was flushed with a copious amount of a saline solution. We could see thick mucoid bile coming up out of the cystic duct. Once again we repeated our cholangiogram with similar previous results. At this point the catheter was removed. Clips were placed on the distal portion of the cystic duct. The cystic duct was now fully transected. Due to the slight distention of the cystic duct I felt more secure tying it with a chromic tie. This was done and the duct was fully transected. The gallbladder was now dissected free from the liver bed, placed into the Endo Catch, and brought out through the umbilical trocar site. Inspection of the abdomen revealed we had adequate hemostasis. The area of the gallbladder was irrigated with a copious amount of the saline solution. The irrigating fluid was now retrieved using the suction catheter. The patient had had been placed back in the neutral position on the OR table. Attention was turned back towards the umbilicus. Once again the fascia was approximated using the Endo Close and an absorbable suture. The pneumoperitoneum was now collapsed, the trochars withdrawn, and luis applied to the skin. At the end of the procedure the patient was in a stable condition when wheeled to the recovery room. Needle sponge instrument count were correct. No drains were placed. Complications: None Transferred to: Recovery Room Condition: Good
[2021-05-25] MEDS ORDERED: GLYCOPYRROLATE 0.2 MG/ML SYR ONE ×2 (17:09→17:32)
[2021-05-25] MEDS ORDERED: KETOROLAC 30 MG/ML INJ ONE (17:10)
[2021-05-25] MEDS ORDERED: dexAMETHasone 10 MG/ML VIAL ONE (17:10)
[2021-05-25] MEDS ORDERED: NEOSTIGMINE 1 MG/ML -5 ML ONE ×2 (17:10→17:33)
[2021-05-25] MEDS ORDERED: Ringers Lactate 1,000 ML IV SCH (17:30)
--- NOTE | 2021-05-25 17:54 | RAD REPORT ---
EXAM DESCRIPTION: RAD - Cholangiogram Oper-Xray Or - 05/25/2021 5:48 pm CLINICAL HISTORY: NASIR WITH COMPARISON: Abdomen Pelvis W Contrast dated 05/25/2021 FINDINGS: Cystic duct injection was performed by operating surgeon. Intrahepatic biliary tree and co mmon bile duct appear mildly prominent. No retained common duct stone is visualized. Total fluoro time: 0.6 minutes.
[2021-05-25] MEDS: PIPER/TAZO/NS 3.375gm 3.375 GM/100 ML BAG IVPB SCH (18:00)
[2021-05-25] MEDS ORDERED: Ringers Lactate 1,000 ML IV ONE (18:25)
[2021-05-25 19:54] LABS: ALT/SGPT 619 U/L (12-78); AST/SGOT 142 U/L (15-37); Albumin 3.5 g/dL (3.4-5.0); Alkaline Phosphatase 198 U/L (45-117); BUN Blood Urea Nitrogen 14 mg/dL (7-18); Bicarbonate 24 mmol/L (21-32); Bilirubin Direct 5.3 mg/dL (0-0.2); Bilirubin Total 7.6 mg/dL (0.2-1.0); Glucose Level 128 mg/dL (74-106); Lipase 99 U/L (73-393); Magnesium 1.7 mg/dL (1.8-2.4); NT PRO-BNP 919 pg/mL (<125); Protein, Total 6.9 g/dL (6.4-8.2); Sodium Level 139 mmol/L (136-145); Troponin (Emerg Dept Use Only) < 0.02 ng/mL (0.0-0.045)
[2021-05-25 20:15] LABS: Potassium 2.7 mmol/L (3.5-5.1)
[2021-05-25] MEDS ORDERED: Magnesium Sulfate 2gm IVPB 2 G/50 ML BAG IV ONE (20:27)
[2021-05-25] MEDS ORDERED: POTASSIUM 25 MEQ EFFERV TAB PO ONE (22:24)
[2021-05-25] MEDS: FAMOTIDINE 20 MG/2 ML VIAL IV SCH (22:31)
[2021-05-25] MEDS: D5.45NS W/KCL 20MEQ 20 MEQ/1,000 ML BAG IV SCH (22:32)
[2021-05-25 22:48] VITALS: BMI 33.9
[2021-05-25] MEDS: HYDROCODONE/APAP 7.5/325 MG TAB PO PRN (23:02)
[2021-05-26] MEDS ORDERED: PIPERACIL/TAZO 3.375 GM VIAL IV ONE ×2 (00:31→04:12)
[2021-05-26] MEDS ORDERED: NA CHLORIDE 0.9% 100 ML ONE ×2 (00:37→05:20)
[2021-05-26] MEDS: PIPER/TAZO/NS 3.375gm 3.375 GM/100 ML BAG IVPB SCH ×4 (05:02→18:16)
[2021-05-26] MEDS: D5.45NS W/KCL 20MEQ 20 MEQ/1,000 ML BAG IV SCH ×2 (05:05→13:00)
[2021-05-26] MEDS: HYDROCODONE/APAP 7.5/325 MG TAB PO PRN (05:10)
[2021-05-26 06:11] LABS: Absolute Lymphocytes (CBC) 0.4 K/uL (0.7-4.9); Basophils % 0.1 % (0-1.3); Hematocrit 34.6 % (39.6-49.0); Lymphocytes % 4.1 % (15.3-44.8); MPV 9.4 fL (7.6-11.3); RBC Red Blood Cell Count 3.56 M/uL (4.33-5.43)
[2021-05-26 06:24] LABS: Albumin 2.8 g/dL (3.4-5.0); Bilirubin Direct 6.8 mg/dL (0-0.2); Magnesium 2.9 mg/dL (1.8-2.4); Potassium 3.3 mmol/L (3.5-5.1); Protein, Total 6.2 g/dL (6.4-8.2)
[2021-05-26 06:26] LABS: Bilirubin Total 8.4 mg/dL (0.2-1.0)
[2021-05-26] MEDS ORDERED: POTASSIUM 25 MEQ EFFERV TAB PO ONE ×2 (09:00→20:00)
[2021-05-26] MEDS: FAMOTIDINE 20 MG/2 ML VIAL IV SCH (10:04)
--- NOTE | 2021-05-26 13:59 | RAD REPORT ---
EXAM DESCRIPTION: NM - Hepatobiliary System Imagin - 05/26/2021 1:43 pm CLINICAL HISTORY: Elevated bilirubin COMPARISON: Abdomen Pelvis W Contrast dated 05/25/2021 TECHNIQUE: The patient was administered 4.2 mCi Tc99m Choletec. Imaging of the right upper quadrant was performed initially for up to 60 minutes. FINDINGS: Nonvisualized gallbladder. Delayed visualization of the common bile duct. There is a tiny volume of radiotracer which does reach the duodenum though this is delayed. This is seen on frames 55 through 59. IMPRESSION: Nonvisualized gallbladder consistent with recent cholecystectomy. No findings to suggest bile leak. Delayed visualization of the common bile duct and small bowel but which is identified whi ch would exclude a high-grade obstruction.
[2021-05-26] MEDS ORDERED: MINERAL OIL 30 ML UCUP PO ONE ×2 (18:00→21:00)
[2021-05-26] MEDS: FAMOTIDINE 20 MG TAB PO SCH (19:52)
[2021-05-26] MEDS: MORPHINE 4 MG/ML SYR IV PRN (19:52)
[2021-05-27] MEDS: PIPER/TAZO/NS 3.375gm 3.375 GM/100 ML BAG IVPB SCH ×3 (00:19→17:26)
[2021-05-27] MEDS: MORPHINE 4 MG/ML SYR IV PRN ×2 (00:22→04:30)
[2021-05-27] MEDS: D5.45NS W/KCL 20MEQ 20 MEQ/1,000 ML BAG IV SCH ×3 (04:19→13:00)
[2021-05-27 06:17] LABS: Absolute Lymphocytes (CBC) 0.6 K/uL (0.7-4.9); Hematocrit 32.1 % (39.6-49.0); MPV 9.2 fL (7.6-11.3); RBC Red Blood Cell Count 3.35 M/uL (4.33-5.43)
[2021-05-27 06:57] LABS: ALT/SGPT 271 U/L (12-78); AST/SGOT 35 U/L (15-37); Albumin 2.5 g/dL (3.4-5.0); Alkaline Phosphatase 187 U/L (45-117); BUN Blood Urea Nitrogen 13 mg/dL (7-18); Bicarbonate 27 mmol/L (21-32); Bilirubin Direct 4.6 mg/dL (0-0.2); Glucose Level 135 mg/dL (74-106); Lipase 41 U/L (73-393); Potassium 3.4 mmol/L (3.5-5.1); Protein, Total 5.8 g/dL (6.4-8.2); Sodium Level 136 mmol/L (136-145)
[2021-05-27] MEDS: FAMOTIDINE 20 MG TAB PO SCH ×2 (12:09→21:55)
[2021-05-27] MEDS: POTASSIUM 25 MEQ EFFERV TAB PO SCH (12:09)
--- NOTE | 2021-05-27 15:10 | P.PN ---
Date of Service: 05/27/21 S: Patient feels well today, pain is almost resolved. Change from morphine over to oral medications. Appetite is good, passing gas today's, but still no bowel movement. Still having some difficulty transitioning from the bed to the chair but gradually establishing his balance. O: Incisions are clean, small amount of drainage at the umbilicus. A: Patient is a HIDA scan yesterday was negative did not show any acute obstruction. Bilirubin today has come down as has his liver enzymes. P: We will decrease IV fluids to KVO. Encourage incentive spirometry. Milk of magnesia unit dose today. Patient may shower, change dressings as needed. He will be changed over to oral medication for his pain control. Anticipate discharge in a.m. Depending on his lab work.
[2021-05-27] MEDS ORDERED: MAGNESIUM HYDROXIDE 8% 30 ML PO ONE (16:00)
[2021-05-27] MEDS ORDERED: D5.45NS W/KCL 20MEQ 20 MEQ/1,000 ML BAG IV SCH (16:00)
[2021-05-28] MEDS: PIPER/TAZO/NS 3.375gm 3.375 GM/100 ML BAG IVPB SCH ×3 (02:30→17:24)
[2021-05-28 08:16] LABS: Basophils % 0.4 % (0-1.3); Hematocrit 34.2 % (39.6-49.0); Lymphocytes % 10.3 % (15.3-44.8); RBC Red Blood Cell Count 3.54 M/uL (4.33-5.43)
[2021-05-28 08:35] LABS: ALT/SGPT 194 U/L (12-78); AST/SGOT 30 U/L (15-37); Albumin 2.5 g/dL (3.4-5.0); Alkaline Phosphatase 191 U/L (45-117); BUN Blood Urea Nitrogen 13 mg/dL (7-18); Bicarbonate 26 mmol/L (21-32); Bilirubin Direct 2.8 mg/dL (0-0.2); Bilirubin Total 4.1 mg/dL (0.2-1.0); Glucose Level 105 mg/dL (74-106); Magnesium 2.3 mg/dL (1.8-2.4); Protein, Total 6.5 g/dL (6.4-8.2); Sodium Level 137 mmol/L (136-145)
[2021-05-28] MEDS: FAMOTIDINE 20 MG TAB PO SCH ×2 (09:13→20:33)
[2021-05-28] MEDS: POTASSIUM 25 MEQ EFFERV TAB PO SCH (09:13)
[2021-05-28 21:53] VITALS: O2SAT 96
[2021-05-29] MEDS: PIPER/TAZO/NS 3.375gm 3.375 GM/100 ML BAG IVPB SCH ×2 (00:38→08:00)
[2021-05-29] MEDS: POTASSIUM 25 MEQ EFFERV TAB PO SCH (08:00)
[2021-05-29] MEDS: FAMOTIDINE 20 MG TAB PO SCH (08:00)
[2021-05-29 14:23] VITALS: BP 155/72; TEMP 98.2
== END 2021-05-29 14:04 | disposition home or self-care (01) | DRG 417 ==
LOC: ER 09:40 → ERHOLD 14:02 → 4TH 21:47 → OBSVTOIN 05-27 07:56
PROVIDERS: ADMIT Surgery; ATTEND Surgery
PROC: BF10YZZ Fluoroscopy of Bile Ducts using Other Contrast (ICD-10-PCS; 2021-05-25)
PROC: 0FT44ZZ Resection of Gallbladder, Percutaneous Endoscopic Approach (ICD-10-PCS; principal; 2021-05-25 13:45)
DX: K80.12 Calculus of gallbladder with acute and chronic cholecystitis without obstruction (principal); U07.1 COVID-19; I25.10 Atherosclerotic heart disease of native coronary artery without angina pectoris; E78.00 Pure hypercholesterolemia, unspecified
CPT/HCPCS: 36415; 71045; 74177; 74300; 76705; 78226; 80048; 80076; 82310; 82565; 83690; 83735; 83880; 84132; 84484; 85025; 85610; 88304; 94010; 99285; A9537; G0378; J1100; J2270; J2405; J2543; J2704; J2710; J3010; J3475; J7030; J7040; J7120; Q9967; U0003

== ENCOUNTER 2021-12-24 18:48 | Inpatient (IN) | payer OTHER, MEDICARE ==
[2021-12-24 19:28] LABS: Absolute Lymphocytes (CBC) 1.5 K/uL (0.7-4.9); Hematocrit 40.9 % (39.6-49.0); Lymphocytes % 21.5 % (15.3-44.8); RBC Red Blood Cell Count 4.25 M/uL (4.33-5.43)
[2021-12-24 19:31] LABS: Protime INR 1.02
[2021-12-24 19:42] LABS: Potassium 3.7 mmol/L (3.5-5.1)
--- NOTE | 2021-12-24 19:52 | RAD REPORT ---
EXAM DESCRIPTION: RAD - Chest Single View - 12/24/2021 7:43 pm CLINICAL HISTORY: CHEST PAIN COMPARISON: Chest Single View dated 05/25/2021; Abdomen 1 View (KUB) dated 02/07/2018; Chest Single Vi ew dated 06/16/2016; CHEST SINGLE VIEW dated 11/15/2015 FINDINGS: Lines: None. Lungs: No evidence of edema or pneumonia. Pleural: No significant pleural effusions or pneumothorax. Cardiac: The heart size is within normal limits. Bones: No acute fractures. Other: IMPRESSION: No acute cardiopulmonary disease.
--- NOTE | 2021-12-24 19:52 | RAD REPORT ---
EXAM DESCRIPTION: CT - Head Brain Wo Cont - 12/24/2021 7:42 pm CLINICAL HISTORY: DIZZINESS COMPARISON: HEAD BRAIN W O CONTRAST dated 11/03/2015; HEAD BRAIN W O CONTRAST dated 12/09/2009 TECHNIQUE: All CT scans are performed using dose optimization technique as appropriate and may inclu de automated exposure control or mA/KV adjustment according to patient size. FINDINGS: No intracranial hemorrhage, hydrocephalus or extra-axial fluid collection.No areas of brai n edema or evidence of midline shift. The paranasal sinuses and mastoids are clear. The calvarium is intact. IMPRESSION: No acute intracranial abnormality.
[2021-12-24 19:58] LABS: Albumin 3.6 g/dL (3.4-5.0); Bilirubin Direct 0.2 mg/dL (0-0.2); Bilirubin Total 0.6 mg/dL (0.2-1.0)
[2021-12-24 20:59] LABS: Magnesium 1.8 mg/dL (1.8-2.4); Troponin High Sensitivity 8.7 pg/mL (<58.9)
--- NOTE | 2021-12-24 21:42 | EDPHYS ---
Physician Documentation [facility] Name: Jignesh Buchanan Age: 71 yrs Sex: Male : 1950 Arrival Date: 12/24/2021 Time: 18:50 Bed 26 Private MD: ED Physician Fadi Dowling HPI: 12/24 19:29 This 71 yrs old Male presents to ER via Ambulatory with complaints of High Blood mh7 Pressure, Chest Pressure, Dizziness, Weakness. 19:29 The patient has elevated blood pressure and discovered this at home, with a home mh7 device. Onset: The symptoms/episode began/occurred 3 day(s) ago. Modifying factors: The symptoms are aggravated by nothing, The symptoms are alleviated by nothing. Associated signs and symptoms: Pertinent positives: chest pain, dizziness, lightheadedness, weakness, Pertinent negatives: dyspnea, headache, nausea, visual changes, vomiting. Severity of symptoms: At its worst the blood pressure was 170 mm Hg, in the emergency department the blood pressure is improved, moderately. Historical: - Allergies: 19:03 No Known Allergies; ab2 - Home Meds: 19:03 amlodipine 5 mg tab 1 tab once daily [Active]; telmisartan-hydrochlorothiazid 80-12.5 ab2 mg Oral tab 1 tab once daily [Active]; - PMHx: 19:03 Hyperlipidemia; Hypertension; pre-diabetic; ab2 - PSHx: 19:03 althea shoulders; left leg; ab2 - Immunization history:: Adult Immunizations. - Social history:: Smoking status: Patient denies any tobacco usage or history of. ROS: 19:29 Constitutional: Negative for fever, chills, and weight loss, Eyes: Negative for injury, mh7 pain, redness, and discharge, ENT: Negative for injury, pain, and discharge, Neck: Negative for injury, pain, and swelling, Respiratory: Negative for shortness of breath, cough, wheezing, and pleuritic chest pain, Abdomen/GI: Negative for abdominal pain, nausea, vomiting, diarrhea, and constipation, Back: Negative for injury and pain, : Negative for injury, bleeding, discharge, and swelling, MS/Extremity: Negative for injury and deformity, Skin: Negative for injury, rash, and discoloration, Psych: Negative for depression, anxiety, suicide ideation, homicidal ideation, and hallucinations, Allergy/Immunology: Negative for hives, rash, and allergies, Endocrine: Negative for neck swelling, polydipsia, polyuria, polyphagia, and marked weight changes, Hematologic/Lymphatic: Negative for swollen nodes, abnormal bleeding, and unusual bruising. Exam: 19:29 Constitutional: This is a well developed, well nourished patient who is awake, alert, mh7 and in no acute distress. Head/Face: Normocephalic, atraumatic. Eyes: Pupils equal round and reactive to light, extra-ocular motions intact. Lids and lashes normal. Conjunctiva and sclera are non-icteric and not injected. Cornea within normal limits. Periorbital areas with no swelling, redness, or edema. Neck: Trachea midline, no thyromegaly or masses palpated, and no cervical lymphadenopathy. Supple, full range of motion without nuchal rigidity, or vertebral point tenderness. No Meningismus. Chest/axilla: Normal chest wall appearance and motion. Nontender with no deformity. No lesions are appreciated. Cardiovascular: Regular rate and rhythm with a normal S1 and S2. No gallops, murmurs, or rubs. Normal PMI, no JVD. No pulse deficits. Respiratory: Lungs have equal breath sounds bilaterally, clear to auscultation and percussion. No rales, rhonchi or wheezes noted. No increased work of breathing, no retractions or nasal flaring. Abdomen/GI: Soft, non-tender, with normal bowel sounds. No distension or tympany. No guarding or rebound. No evidence of tenderness throughout. Back: No spinal tenderness. No costovertebral tenderness. Full range of motion. Skin: Warm, dry with normal turgor. Normal color with no rashes, no lesions, and no evidence of cellulitis. MS/ Extremity: Pulses equal, no cyanosis. Neurovascular intact. Full, normal range of motion. 19:29 Psych: Awake, alert, with orientation to person, place and time. Behavior, mood, and affect are within normal limits. 19:29 Neuro: Orientation: is normal, Mentation: is normal, Memory: is normal, Cranial nerves: grossly normal, Cerebellar function: is grossly normal, Motor: is normal, Sensation: is normal, Gait: not tested. seizure activity, is not displayed by the patient, Abnormal movements: there are no abnormal movements. 19:29 ECG was reviewed by the Attending Physician. [facility] Vital Signs: 19:02 BP 167 / 90; Pulse 102; Resp 20; Temp 98.4(TE); Pulse Ox 95% ; Weight 121.56 kg; Height ab2 6 ft. (182.88 cm); Pain 0/10; 19:18 BP 153 / 86; Pulse 89; Resp 18; Pulse Ox 97% on R/A; ld1 20:14 BP 149 / 71; Pulse 67; Resp 18; Pulse Ox 95% on R/A; ld1 21:21 BP 141 / 71; Pulse 60; Resp 14; Pulse Ox 98% on R/A; ld1 22:45 BP 162 / 74; Pulse 58; Resp 18; Pulse Ox 96% on R/A; ld1 19:02 Body Mass Index 36.35 (121.56 kg, 182.88 cm) ab2 MDM: 21:38 Differential diagnosis: hypertensive crisis, Malignant HTN, chest pain, HI. Data [facility] reviewed: vital signs, nurses notes, old medical records, lab test result(s), cardiac enzymes, CBC. Data interpreted: Pulse oximetry: on room air is 98 %. Interpretation: normal. Counseling: I had a detailed discussion with the patient and/or guardian regarding: the historical points, exam findings, and any diagnostic results supporting the discharge/admit diagnosis, the presence of at least one elevated blood pressure reading (>120/80) during this emergency department visit, lab results, radiology results, the need for further work-up and treatment in the hospital. Response to treatment: the patient's symptoms have markedly improved after treatment. 21:[address] [facility] 12/24 19:06 Order name: Basic Metabolic Panel; Complete Time: 21:03 [facility] 12/24 19:06 Order name: CBC with Diff; Complete Time: 19:37 [facility] 12/24 19:06 Order name: LFT's; Complete Time: 21:03 [facility] 12/24 19:06 Order name: Magnesium; Complete Time: 21:03 [facility] 12/24 19:06 Order name: NT PRO-BNP; Complete Time: 21:03 [facility] 12/24 19:06 Order name: PT-INR; Complete Time: 19:37 [facility] 12/24 19:06 Order name: Troponin HS; Complete Time: 21:03 [facility] 12/24 19:06 Order name: XRAY Chest (1 view); Complete Time: 19:55 [facility] 12/24 19:06 Order name: EKG; Complete Time: 19:07 [facility] 12/24 19:06 Order name: Cardiac monitoring; Complete Time: 19:18 [facility] 12/24 19:06 Order name: EKG - Nurse/Tech; Complete Time: 19:10 [facility] 12/24 19:06 Order name: IV Saline Lock; Complete Time: 19:18 [facility] 12/24 19:24 Order name: SARS-COV-2 RT PCR (Document "Date of Onset" if Symptomatic); Complete Time: ds4 20:30 12/24 19:28 Order name: CT Head Brain wo Cont; Complete Time: 19:55 [facility] 12/24 19:06 Order name: Labs collected and sent; Complete Time: 19:18 [facility] 12/24 19:06 Order name: O2 Per Protocol; Complete Time: 19:10 [facility] 12/24 19:06 Order name: O2 Sat Monitoring; Complete Time: 19:10 EC:29 Rate is 93 beats/min. Rhythm is regular, Sinus Rhythm with 1st degree heart block. Left [facility] axis deviation noted. FL interval is prolonged at 240 msec. QRS interval is normal. QT interval is normal. Q waves are Present in leads V1, V3. T waves are Normal. No ST changes noted. Clinical impression: Abnormal EKG without significant change, 1st degree heart block, and LVH. Administered Medications: No medications were administered Disposition Summary: 12/24/21 21:42 Hospitalization Ordered Hospitalization Status: Observation [facility] Provider: Alena Veliz Location: Telemetry/MedSurg (observation) [facility] Condition: Stable [facility] Problem: new [facility] Symptoms: have improved [facility] Bed/Room Type: Standard [facility] Room Assignment: 210(12/24/21 22:49) mw Diagnosis - Chest pain, unspecified [facility] Forms: - Medication Reconciliation Form [facility] - SBAR form [facility] Signatures: Dispatcher [employer] EDMS Sarah Carroll RN RN mw Holmes, Maurice, MD MD [facility] Boni Lee Sophia, PA PA sb3 Corrections: (The following items were deleted from the chart) 22:49 21:42 7 mw
--- NOTE | 2021-12-24 21:42 | ER ---
Nurse's Notes [facility] Name: Jignesh Buchanan Age: 71 yrs Sex: Male : 1950 Arrival Date: 12/24/2021 Time: 18:50 Bed 26 [facility] MD: Diagnosis: Chest pain, unspecified Presentation: 12/24 19:02 Chief complaint: Patient states: "I have been having high blood pressure, its causing ab2 me to be dizzy and have weak legs. When I take a deep breath I feel tightness in my chest.". Coronavirus screen: Vaccine status: Patient reports receiving the 2nd dose of the covid vaccine. Client denies travel out of the [place] in the last 14 days. At this time, the client does not indicate any symptoms associated with coronavirus-19. Ebola Screen: Patient negative for fever greater than or equal to 101.5 degrees Fahrenheit, and additional compatible Ebola Virus Disease symptoms Patient denies exposure to infectious person. Patient denies travel to an Ebola-affected area in the 21 days before illness onset. No symptoms or risks identified at this time. Initial Sepsis Screen: Does the patient meet any 2 criteria? No. Patient's initial sepsis screen is negative. Does the patient have a suspected source of infection? No. Patient's initial sepsis screen is negative. Risk Assessment: Do you want to hurt yourself or someone else? Patient reports no desire to harm self or others. Onset of symptoms is unknown. 19:02 Method Of Arrival: Ambulatory ab2 19:02 Acuity: NERI 3 ab2 Triage Assessment: 19:04 General: Appears in no apparent distress. uncomfortable, Behavior is calm, cooperative, ab2 appropriate for age. Pain: Denies pain. Cardiovascular: Reports lightheadedness. Respiratory: Airway is patent Respiratory effort is even, unlabored, Respiratory pattern is regular, symmetrical. Historical: - Allergies: 19:03 No Known Allergies; ab2 - Home Meds: 19:03 amlodipine 5 mg tab 1 tab once daily [Active]; telmisartan-hydrochlorothiazid 80-12.5 ab2 mg Oral tab 1 tab once daily [Active]; - PMHx: 19:03 Hyperlipidemia; Hypertension; pre-diabetic; ab2 - PSHx: 19:03 althea shoulders; left leg; ab2 - Immunization history:: Adult Immunizations. - Social history:: Smoking status: Patient denies any tobacco usage or history of. Screenin:18 Abuse screen: Denies threats or abuse. Denies injuries from another. Nutritional ld1 screening: No deficits noted. Tuberculosis screening: No symptoms or risk factors identified. Fall Risk None identified. Assessment: 19:18 General: Appears in no apparent distress. comfortable, Behavior is calm, cooperative, ld1 appropriate for age. Pain: Denies pain. Neuro: Level of Consciousness is awake, alert, obeys commands, Oriented to person, place, time, situation. Cardiovascular: Capillary refill < 3 seconds Patient's skin is warm and dry. Rhythm is sinus rhythm. Respiratory: Airway is patent Respiratory effort is even, unlabored. GI: Abdomen is round non-distended. : No signs and/or symptoms were reported regarding the genitourinary system. EENT: No signs and/or symptoms were reported regarding the EENT system. Derm: No signs and/or symptoms reported regarding the dermatologic system. Musculoskeletal: No signs and/or symptoms reported regarding the musculoskeletal system. 21:21 Reassessment: Patient appears in no apparent distress at this time. No changes from ld1 previously documented assessment. Patient and/or family updated on plan of care and expected duration. Pain level reassessed. Patient is alert, oriented x 3, equal unlabored respirations, skin warm/dry/pink. 22:45 Reassessment: Patient appears in no apparent distress at this time. No changes from ld1 previously documented assessment. Patient denies pain at this time. Vital Signs: 19:02 BP 167 / 90; Pulse 102; Resp 20; Temp 98.4(TE); Pulse Ox 95% ; Weight 121.56 kg; Height ab2 6 ft. (182.88 cm); Pain 0/10; 19:18 BP 153 / 86; Pulse 89; Resp 18; Pulse Ox 97% on R/A; ld1 20:14 BP 149 / 71; Pulse 67; Resp 18; Pulse Ox 95% on R/A; ld1 21:21 BP 141 / 71; Pulse 60; Resp 14; Pulse Ox 98% on R/A; ld1 22:45 BP 162 / 74; Pulse 58; Resp 18; Pulse Ox 96% on R/A; ld1 19:02 Body Mass Index 36.35 (121.56 kg, 182.88 cm) ab2 ED Course: 18:50 Patient arrived in ED. rg4 19:00 Fadi Dowling MD is Attending Physician. 7 19:01 Lluvia Guajardo, RN is Primary Nurse. ld1 19:03 Triage completed. ab2 19:05 Arm band placed on right wrist. ab2 19:18 Patient has correct armband on for positive identification. Placed in gown. Bed in low ld1 position. Call light in reach. Side rails up X2. night monitor on. Pulse ox on. NIBP on. Door closed. Noise minimized. Warm blanket given. 19:18 No provider procedures requiring assistance completed. Inserted saline lock: 20 gauge ld1 in right antecubital area, using aseptic technique. Blood collected. Patient maintains SpO2 saturation greater than 95% on room air. 19:38 SARS-COV-2 RT PCR (Document "Date of Onset" if Symptomatic) Sent. ld1 19:44 XRAY Chest (1 view) In Process Unspecified. EDMS 19:44 CT Head Brain wo Cont In Process Unspecified. EDMS 21:41 Alena Veliz MD is Hospitalizing Provider. [facility] 23:16 Patient admitted, IV remains in place. ld1 Administered Medications: No medications were administered Outcome: 21:42 Decision to Hospitalize by Provider. [facility] 23:15 Admitted to Med/surg accompanied by nurse, via wheelchair, room 210, Report called to ldKarthik Laboy RN 23:15 Condition: stable 23:15 Instructed on the need for admit. 23:16 Patient left the ED. ld1 Signatures: Dispatcher [employer] EDMarni Barney 4 Fadi Dowling MD MD [facility] Lluvia Guajardo, RN RN ld1 Boni Lee ab2
--- NOTE | 2021-12-24 22:49 | P.HP ---
Certification for Inpatient Patient admitted to: Observation With expected LOS: <2 Midnights Patient will require the following post-hospital care: None Practitioner: I am a practitioner with admitting privileges, knowledge of patient current condition, hospital course, and medical plan of care. Services: Services provided to patient in accordance with Admission requirements found in Title 42 Section 412.3 of the Code of Federal Regulations <Zahira Edmonds - Last Filed: 12/24/21 22:44> Patient History Date of Service: 12/24/21 Primary Care Provider: Dr. Nagel Reason for admission: Chest pain History of Present Illness: Patient 71-year-old male with hypertension, hyperlipidemia, CAD, type 2 diabetes [id number] who presented to the ED after experiencing an episode of chest pain, lightheadedness, dizziness, weakness in his legs. He states he had an episode like this on Sunday and thought it might be related to low blood sugar because he had eaten a sugary meal prior. In the ED, labs within normal limits. Chest x-ray negative, troponin not elevated, EKG borderline without ST elevations or depressions. CT head negative. Patient states that he had a stress test 1 week ago and has a follow-up appointment with Dr. Degroot scheduled for Sunday. He also had an echo a few days ago. Patient's vital signs have remained stable. Patient will be admitted for observation. Home medications list reviewed: Yes - Past Medical/Surgical History Diabetic: Yes -: Type 2 diabetes, [id number] -: Hypertension -: Hyperlipidemia -: CAD -: Cholecystectomy Psychosocial/ Personal History: Patient lives at home alone. - Family History Family History: Reviewed- Non-Contributory (Patient denies family history.) - Social History Smoking Status: Never smoker Alcohol use: No CD- Drugs: No Caffeine use: Yes Place of Residence: Home <Ayde Edmondsia - Last Filed: 12/24/21 22:44> Date of Service: 12/24/21 <Alena Veliz - Last Filed: 12/26/21 02:37> Allergies No Known Drug Allergies Allergy (Mild, Verified 12/24/21 23:30) Rash Home Medications: Amlodipine [Norvasc*] 5 mg PO BID 12/25/21 Doxazosin [Cardura*] 2 mg PO BID 12/25/21 Doxycycline Hyclate 50 mg PO DAILY 12/25/21 Eszopiclone [Lunesta] 3 mg PO BEDTIME PRN 12/25/21 Metformin ER [Glucophage ER*] 500 mg PO BID 12/25/21 Rosuvastatin [Crestor*] 5 mg PO DAILY 12/25/21 Telmisartan/Hydrochlorothiazid [Telmisartan-Hctz 80-12.5 mg Tb] 1 tab PO DAILY 12/25/21 Review of Systems General: Weakness, As per HPI Cardiovascular: Chest Pain <Zahira Edmonds - Last Filed: 12/24/21 22:44> Physical Examination - Physical Exam General: Alert, In no apparent distress, Oriented x3 HEENT: Atraumatic, PERRLA, Mucous membr. moist/pink, EOMI, Sclerae nonicteric Neck: Supple, 2+ carotid pulse no bruit, No LAD, Without JVD or thyroid abnormality Respiratory: Clear to auscultation bilaterally, Normal air movement Cardiovascular: No edema, Regular rate/rhythm, Normal S1 S2 Gastrointestinal: Normal bowel sounds, No tenderness Musculoskeletal: No tenderness Integumentary: No rashes Neurological: Normal speech, Normal strength at 5/5 x4 extr, Normal tone, Normal affect - Studies Laboratory Data (last 24 hrs) 12/24/21 19:17: PT 11.2, INR 1.02 12/24/21 19:17: WBC 7.0, Hgb 14.1, Hct 40.9, Plt Count 132 L 12/24/21 19:17: Sodium 139, Potassium 3.7, BUN 16, Creatinine 0.95, Glucose 218 H, Magnesium 1.8 D, Total Bilirubin 0.6, AST 20, ALT 27, Alkaline Phosphatase 60 <Zahira Edmonds - Last Filed: 12/24/21 22:44> - Studies Laboratory Data (last 24 hrs) 12/25/21 07:01: Triglycerides 87, Cholesterol 106, HDL Cholesterol 70 H, Cholesterol/HDL Ratio 1.51 <Alena Veliz - Last Filed: 12/26/21 02:37> Assessment and Plan - Problems (Diagnosis) (1) Chest pain in adult Current Visit: Yes Status: Acute (2) Diabetes mellitus type 2, noninsulin dependent Current Visit: Yes Status: Chronic (3) Hyperlipidemia Current Visit: Yes Status: Chronic Qualifiers: Hyperlipidemia type: mixed hyperlipidemia Qualified Code(s): E78.2 - Mixed hyperlipidemia (4) Hypertension Current Visit: Yes Status: Chronic Qualifiers: Hypertension type: primary hypertension Qualified Code(s): I10 - Essential (primary) hypertension (5) Coronary artery disease Current Visit: Yes Status: Chronic Qualifiers: Coronary Disease-Associated Artery/Lesion type: [place] artery [place] vs. transplanted heart: [place] heart Associated angina: with stable angina Qualified Code(s): I25.118 - Atherosclerotic heart disease of [place] coronary artery with other forms of angina pectoris (6) Obesity Current Visit: Yes Status: Chronic Qualifiers: Obesity classification: unspecified obesity classification Serious obesity comorbidity presence: without serious comorbidity - Plan -Patient had a cardiac work-up in the past week including stress test and echo. He is scheduled to see Dr. Degroot in a few days to go over the results. He does take 81 mg aspirin daily. -Labs within normal limits. Will trend troponin every 6 hours x2 and monitor patient on telemetry overnight. Cardiology consulted -Aspirin and atorvastatin ordered. -Patient reports that his symptoms have resolved. Denies any chest pain at this time. he thought that they might have been related to his high blood sugar. ACHS Accu-Cheks and mild sliding scale insulin. -Patient was experiencing some dizziness along with his chest pain, CT head negative. -Continue home medications as appropriate DVT PPx: Lovenox Code: Full Discharge Plan: Home Plan to discharge in: 24 Hours - Advance Directives Does patient have a Living Will: No Does patient have a Durable POA for Healthcare: No - Code Status/Comfort Care Code Status Assessed: Yes (Full) Critical Care: No Time Spent Managing Pts Care (In Minutes): 70 <Zahira Edmonds - Last Filed: 12/24/21 22:44> - Problems (Diagnosis) (1) Chest pain in adult Current Visit: Yes Status: Acute (2) Coronary artery disease Current Visit: Yes Status: Chronic Qualifiers: Coronary Disease-Associated Artery/Lesion type: [place] artery [place] vs. transplanted heart: [place] heart Associated angina: with stable angina Qualified Code(s): I25.118 - Atherosclerotic heart disease of [place] coronary artery with other forms of angina pectoris (3) Diabetes mellitus type 2, noninsulin dependent Current Visit: Yes Status: Chronic (4) Hyperlipidemia Current Visit: Yes Status: Chronic Qualifiers: Hyperlipidemia type: mixed hyperlipidemia Qualified Code(s): E78.2 - Mixed hyperlipidemia (5) Hypertension Current Visit: Yes Status: Chronic Qualifiers: Hypertension type: primary hypertension Qualified Code(s): I10 - Essential (primary) hypertension (6) Obesity Current Visit: Yes Status: Chronic Qualifiers: Obesity classification: unspecified obesity classification Serious obesity comorbidity presence: without serious comorbidity <Alena Veliz - Last Filed: 12/26/21 02:37> Date of Service: 12/24/21 Subjective: HPI as mentioned above Physical Examination: Vitals: Afebrile vital signs are stable Physical exam: Cardiovascular: Within normal limits. Lungs: Within normal limits Abdomen: Within normal limits Neuro: Awake, alert, oriented to person place and time Assessment: 1. Unstable angina Plan: 1. Continue with current plan of care as mentioned above <Alena Veliz - Last Filed: 12/26/21 02:37>
[2021-12-24] MEDS ORDERED: ACETAMINOPHEN 500 MG TAB PO PRN (23:27)
[2021-12-24] MEDS ORDERED: ASPIRIN 81 MG CHEWABLE TABLET PO ONE (23:27)
[2021-12-24] MEDS ORDERED: ONDANSETRON 4 MG/2 ML VIAL IV PRN (23:27)
[2021-12-24 23:31] VITALS: BMI 34.6
[2021-12-25] MEDS: ZOLPIDEM TARTRATE 5 MG TABLET PO PRN ×2 (01:58→21:15)
[2021-12-25 02:44] LABS: Urine Appearance Clear (Clear); Urine Bilirubin Negative (Negative); Urine Blood Negative (Negative); Urine Color Yellow (Yellow); Urine Glucose Trace (Negative); Urine Protein Negative (Negative); Urine Specific Gravity 1.025 (1.005-1.030); Urine Urobilinogen 0.2 mg/dL (0.2-1.0)
[2021-12-25 03:06] LABS: Urine Microscopic Reflex NO UMIC
[2021-12-25] MEDS: INSULIN -REGULAR HUMAN 50 UNIT/0.5 ML ML SQ SCH ×4 (07:30→21:00)
[2021-12-25 07:43] LABS: Thyroid Stimulating Hormone 2.5 uIU/mL (0.360-3.740)
[2021-12-25] MEDS ORDERED: ENOXAPARIN 40 MG/0.4 ML SQ SCH (09:00)
[2021-12-25] MEDS: ATORVASTATIN 40 MG TAB PO SCH (21:15)
--- NOTE | 2021-12-26 02:36 | P.PN ---
Subjective Date of Service: 12/25/21 Patient is clinically doing well. Not having any episodes of lightheadedness. Patient had an outpatient stress test that is positive. Because he still having clinical symptoms plan to proceed with cardiac catheterization per cardiology in the morning. Review of Systems 10-point ROS is otherwise unremarkable Physical Examination - Vital Signs Temperature: 97.3 F Blood Pressure: 142/66 Pulse: 52 Respirations: 18 Pulse Ox (%): 99 - Physical Exam General: Alert, In no apparent distress, Oriented x3 HEENT: Atraumatic, PERRLA, EOMI Neck: Supple, JVD not distended Respiratory: Clear to auscultation bilaterally, Normal air movement Cardiovascular: Regular rate/rhythm, Normal S1 S2 Gastrointestinal: Normal bowel sounds, No tenderness Musculoskeletal: No tenderness Integumentary: No rashes Neurological: Normal speech, Normal tone, Normal affect Lymphatics: No axilla or inguinal lymphadenopathy - Studies Laboratory Data (last 24 hrs) 12/25/21 07:01: Triglycerides 87, Cholesterol 106, HDL Cholesterol 70 H, Cholesterol/HDL Ratio 1.51 Medications List Reviewed: Yes Assessment & Plan - Problems (Diagnosis) (1) Chest pain in adult Current Visit: Yes Status: Acute (2) Coronary artery disease Current Visit: Yes Status: Chronic Qualifiers: Coronary Disease-Associated Artery/Lesion type: [place] artery [place] vs. transplanted heart: [place] heart Associated angina: with stable angina Qualified Code(s): I25.118 - Atherosclerotic heart disease of [place] coronary artery with other forms of angina pectoris (3) Diabetes mellitus type 2, noninsulin dependent Current Visit: Yes Status: Chronic (4) Hyperlipidemia Current Visit: Yes Status: Chronic Qualifiers: Hyperlipidemia type: mixed hyperlipidemia Qualified Code(s): E78.2 - Mixed hyperlipidemia (5) Hypertension Current Visit: Yes Status: Chronic Qualifiers: Hypertension type: primary hypertension Qualified Code(s): I10 - Essential (primary) hypertension (6) Obesity Current Visit: Yes Status: Chronic Qualifiers: Obesity classification: unspecified obesity classification Serious obesity comorbidity presence: without serious comorbidity - Plan -High-sensitivity troponin is negative -Cardiology consultation appreciated. Proceed with cardiac catheterization in a.m. -Echocardiogram, arterial Doppler, venous Doppler, and stress test has been done as an outpatient -Repeat EKG -Work-up for other etiologies of cardiac chest pain if troponins remain negative -Lipid profile -Acquisition Editor regarding modifying risk for cardiac disease Discharge Plan: Home Plan to discharge in: Greater than 2 days - Advance Directives Does patient have a Living Will: No Does patient have a Durable POA for Healthcare: No - Code Status/Comfort Care Code Status: Full Code Critical Care: No Time Spent Managing PTS Care (In Minutes): 40
[2021-12-26] MEDS: ENOXAPARIN 40 MG/0.4 ML SQ SCH ×2 (02:54→09:00)
[2021-12-26 04:27] LABS: Phosphorus 3.9 mg/dL (2.5-4.9); Troponin High Sensitivity 16.6 pg/mL (<58.9)
[2021-12-26] MEDS: INSULIN -REGULAR HUMAN 50 UNIT/0.5 ML ML SQ SCH ×4 (07:30→20:29)
[2021-12-26] MEDS ORDERED: INFLUENZA VACCINE (for 6+ mo) 0.5 ML DOSE IMVAC ONE (08:00)
[2021-12-26] MEDS ORDERED: PNEUMOCOCCAL VACCINE 0.5 ML IMVAC ONE (08:00)
--- NOTE | 2021-12-26 09:28 | EKG ---
Test Date: 2021-12-24 Test Time: 19:10:04 Dairy Worker: ARNOLDO MEASUREMENT RESULTS: Intervals: Rate: 93 DE: 240 QRSD: 138 QT: 384 QTc: 477 [place]: P: 72 DE: 240 QRS: -50 T: 95 INTERPRETIVE STATEMENTS: Sinus rhythm with 1st degree AV block Left axis deviation Left ventricular hypertrophy with QRS widening and repolarization abnormality Cannot rule out Septal infarct, age undetermined Abnormal ECG Compared to ECG 06/20/2020 14:06:24 Early repolarization now present Myocardial infarct finding still present Electronically Signed On 12-26-21 09:25:57 CDT by Kev Hooper
[2021-12-26] MEDS ORDERED: FENTANYL CITR 100 MCG/2 ML ONE (11:38)
[2021-12-26] MEDS ORDERED: HEPA 1000U/500MLS 2,000 UNIT/1,000 ML BAG IV ONE (11:38)
[2021-12-26] MEDS ORDERED: HEPARIN 10,000 UNIT/10 ML VIAL IV ONE (11:38)
[2021-12-26] MEDS ORDERED: VERAPAMIL HCL 10 MG/4 ML VIAL IV ONE (11:38)
[2021-12-26] MEDS ORDERED: HEPARIN 5000 UNIT/ML 1 ML VIAL ONE (11:38)
[2021-12-26] MEDS ORDERED: MIDAZOLAM HCL 2 MG/2 ML INJ ONE (11:38)
[2021-12-26] MEDS ORDERED: TICAGRELOR 90 MG TABLET PO ONE (11:39)
[2021-12-26] MEDS ORDERED: ASPIRIN 325 MG TAB ONE (11:39)
[2021-12-26] MEDS ORDERED: ATROPINE SULF 1 MG/10 ML SYR IV ONE (11:39)
[2021-12-26] MEDS ORDERED: CLOPIDOGREL 75 MG TABLET ONE (11:39)
[2021-12-26] MEDS ORDERED: NA CHLORIDE 0.9% 500 ML ONE (11:48)
--- NOTE | 2021-12-26 13:25 | PN ---
Date of Progress Note: 12/26/2021 Subjective: Seen by bedside. Chest pain-free. Status post coronary angiogram with normal coronary arteries. Review of Systems: No chest pain, shortness of breath, orthopnea, cough. No nausea, vomiting, diarrhea. No abdominal p ain. All other systems reviewed are negative. Physical Examination: Vital Signs: Temperature is 97.7, pulse 65, breathing at 16, blood pressure 153/72, saturating 95% o n room air. General: Pleasant, elderly male, in no apparent distress. Head and Neck: Pupils are equal, reactive to light. Intact eye movements. No JVD. No cervical hyun nopathy. Neck is supple. Thyroid is not enlarged. Head and Neck: Pupils are equal, reactive to light. Intact eye movements. No JVD. No cervical lym phadenopathy. Neck: Supple. Thyroid is not enlarged. Lungs: Clear to auscultation bilaterally. No rhonchi, rales, or crackles. No accessory muscle use. Heart: Regular rate and rhythm. No extra sounds. Abdomen: Soft, nontender. Bowel sounds positive. No organomegaly. No masses or hernia. No rigidi ty or rebound. Extremities: No edema, clubbing, or cyanosis. Intact pulses. Skin: No rash noted. Neurologic: Alert, awake, oriented x3. No acute focal deficits appreciated. Investigations: Coronary angiogram was normal completely. Assessment And Recommendations: 1.Chest pain. This is noncardiac. Coronary angiogram is normal. From Cardiology standpoint, the p atient can be released. Follow up with me in the office in 4 weeks. 2.Hypertension. The patient needs better blood pressure control. Please adjust his home medication for systolic blood pressure to be less than 140. 3.Dyslipidemia. Continue statin. SR/MODL Voice ID: [id number] Report ID: [id number]
--- NOTE | 2021-12-26 13:28 | CON ---
Date of Consultation: 12/25/2021 Reason For Consultation: Chest pain. History Of Present Illness: A 71-year-old male with history of hypertension, dyslipidemia, type 2 di abetes, presented with chest pain and generalized lightheadedness. He had a stress test that showed scarring, but kept having chest pain related to the exertion, so he presented to the emergency room. I evaluated him by bedside. The patient was chest pain free. Past Medical History: As outlined above in the HPI. Medications: Refer to reconciliation sheet for detailed list. Allergies: NO KNOWN DRUG ALLERGIES. Family History: No premature coronary artery disease or cancer. Social History: He does not smoke or drink. Does not use any drugs. Review of Systems: All systems reviewed and they were negative except what mentioned in HPI. Physical Examination: Vital Signs: Reviewed. Head and Neck: Pupils are equal, reactive to light. Intact eye movements. No JVD. No cervical lym phadenopathy. Neck is supple. Thyroid is not enlarged. Head and Neck: Pupils are equal, reactive to light. Intact eye movements. No JVD. No cervical lym phadenopathy. Neck: Supple. Thyroid is not enlarged. Lungs: Clear to auscultation bilaterally. No rhonchi, rales, or crackles. No accessory muscle use. Heart: Regular rate and rhythm. No extra sounds. Abdomen: Soft, nontender. Bowel sounds positive. No organomegaly. No masses or hernia. No rigidi ty or rebound. Extremities: No edema, clubbing, or cyanosis. Intact pulses. Skin: No rash noted. Neurologic: Alert, awake, oriented x3. No acute focal deficits appreciated. Lymph Nodes: No cervical or axillary lymphadenopathy. Investigations: All labs were reviewed. Troponin specifically was negative. Assessment And Recommendations: Chest pain, possible unstable angina and abnormality of stress test. Plan for coronary angiogram on early Sunday morning. Keep n.p.o. on Sunday past midnight. Start o n aspirin use, nitrates for pain control as well as morphine sulfate and obtain an echocardiogram if it was not done recently. Thank for the consult. /ITZEL Voice ID: [id number] Report ID: [id number]
--- NOTE | 2021-12-26 13:34 | OP ---
Date of Procedure: 12/26/2021 Surgeon: SENIA JIMÉNEZ Procedure Performed: Selective coronary angiogram. Indication: Unstable angina and abnormal stress test. Access: Right radial artery 6[place] closed with TR band. Complications: None. Bleeding: Less than 10 mL. Anesthesia: Total sedation time was 20 minutes. Description Of Procedure: After risks, benefits, and alternatives were explained, the patient agreed to the procedure and signed a formal consent. The patient was brought into the cardiac catheterizat ion laboratory, prepped and draped in usual sterile fashion. Then, we accessed right radial artery u sing pediatric micropuncture kit. Fentanyl and Versed were given in incremental doses to achieve hyun quate amount of sedation. Then, I accessed right artery and placed a 6-[place] Slender sheath and too k 5-[place] 4.0 catheter into the aortic root over a J-wire, engaged left main and right coronar y artery and took standard views. Then, we removed the catheter and sheath, placed TR band with good hemostasis. Findings: 1.Left main; very large and normal. 2.LAD; very large vessel, more than 5 mm caliber with normal diagonal branches. No disease. Normal septal branches. 3.Left circumflex; large, caliber vessel, normal, no disease. 4.RCA; large, dominant, and normal. Conclusion: Normal coronary arteries. Recommendation: Medical management and evaluate for other causes of chest pain. From Cardiology sta ndpoint, the patient can be discharged home today and follow up with me in the office in 3-4 weeks. SR/MODL Voice ID: [id number] Report ID: [id number]
[2021-12-26 14:21] VITALS: O2SAT 96
[2021-12-26] MEDS ORDERED: AMLODIPINE 5 MG TAB PO ONE (16:00)
[2021-12-26] MEDS ORDERED: AYR NASAL SALINE DROPS NAS PRN (20:00)
[2021-12-26] MEDS: ATORVASTATIN 40 MG TAB PO SCH (20:29)
[2021-12-27] MEDS: ZOLPIDEM TARTRATE 5 MG TABLET PO PRN (01:33)
[2021-12-27 05:24] LABS: Absolute Lymphocytes (CBC) 1.8 K/uL (0.7-4.9); Hematocrit 40.7 % (39.6-49.0); Lymphocytes % 25.7 % (15.3-44.8); MPV 8.7 fL (7.6-11.3)
[2021-12-27 05:41] LABS: Potassium 3.7 mmol/L (3.5-5.1)
--- NOTE | 2021-12-27 07:19 | P.PN ---
Subjective Date of Service: 12/27/21 Primary Care Provider: Dr. Nagel Chief Complaint: Chest pain Subjective: No new changes Physical Examination - Vital Signs Temperature: 97 F Blood Pressure: 155/79 Pulse: 62 Respirations: 16 Pulse Ox (%): 97 - Physical Exam General: Alert, Oriented x3 HEENT: Atraumatic, Normocephalic Neck: Supple Respiratory: Clear to auscultation bilaterally Cardiovascular: Regular rate/rhythm, Normal S1 S2 Gastrointestinal: Soft and benign Neurological: Normal speech, Normal strength at 5/5 x4 extr, Cranial nerves 3-12 intact - Studies Medications List Reviewed: Yes Assessment And Plan - Plan Chest pain Hypertension Hyperlipidemia Diabetes type 2 CAD Plan: He has left heart cath scheduled for today. We will continue to monitor on telemetry. We will continue to monitor symptomatology. Monitor glucose per unit protocol and ACHS. Follow vital signs per unit protocol continue routine blood pressure control medications. Discharge Plan: Home
--- NOTE | 2021-12-27 07:19 | P.PN ---
Subjective Date of Service: 12/27/21 Primary Care Provider: Dr. Nagel Chief Complaint: Chest pain Physical Examination - Vital Signs Temperature: 97 F Blood Pressure: 155/79 Pulse: 62 Respirations: 16 Pulse Ox (%): 97 - Studies Medications List Reviewed: Yes Assessment And Plan - Plan Chest pain Hypertension Hyperlipidemia Diabetes type 2
--- NOTE | 2021-12-27 07:20 | P.DS ---
Admission Date: 12/25/21 Discharge Date: 12/27/21 Primary Care Provider: Dr. Nagel Disposition: ROUTINE DISCHARGE Discharge Condition: GOOD Reason for Admission: Chest pain Consultations: Cardiology. Brief History of Present Illness: 71-year-old male patient with medical hx significant for hypertension, DM type 2, hyperlipidemia, history of coronary artery disease who was evaluated in the emergency room for episode of chest pain. He was admitted for ACS work-up secondary to his comorbid condition. Hospital Course: On admission, he was put on telemetry and a troponin trended which showed no acute issue because of his comorbid condition cardiology was consulted and it was recommended that cardiac cath be done. He had left his catheter showed sign ificantly clear blood vessels. He was stable for discharge home to follow up with cardiology as outpt. He did report reportedly extremities and it was recommended the patient be started on gabapentin. He will follow up with his PCP in the coming week. Vital Signs/Physical Exam: Temp Pulse Resp BP Pulse Ox 97 F 62 16 155/79 H 97 12/27/21 07:19 12/27/21 07:19 12/27/21 07:19 12/27/21 07:19 12/27/21 07:19 Laboratory Data at Discharge: WBC 7.1 K/uL (4.3-10.9) 12/27/21 05:10 Hgb 14.3 g/dL (13.6-17.9) 12/27/21 05:10 Hct 40.7 % (39.6-49.0) 12/27/21 05:10 Plt Count 138 K/uL (152-406) L 12/27/21 05:10 PT 11.2 SECONDS (9.5-12.5) 12/24/21 19:17 INR 1.02 12/24/21 19:17 Sodium 141 mmol/L (136-145) 12/27/21 05:10 Potassium 3.7 mmol/L (3.5-5.1) 12/27/21 05:10 BUN 13 mg/dL (7-18) 12/27/21 05:10 Creatinine 0.86 mg/dL (0.55-1.3) 12/27/21 05:10 Glucose 136 mg/dL (74-106) H 12/27/21 05:10 Phosphorus 3.9 mg/dL (2.5-4.9) 12/26/21 03:18 Magnesium 1.8 mg/dL (1.8-2.4) D 12/24/21 19:17 Total Bilirubin 0.6 mg/dL (0.2-1.0) 12/24/21 19:17 AST 20 U/L (15-37) 12/24/21 19:17 ALT 27 U/L (12-78) 12/24/21 19:17 Alkaline Phosphatase 60 U/L (45-117) 12/24/21 19:17 Triglycerides 87 mg/dL (<150) 12/25/21 07:01 Cholesterol 106 mg/dL (<200) 12/25/21 07:01 HDL Cholesterol 70 mg/dL (40-60) H 12/25/21 07:01 Cholesterol/HDL Ratio 1.51 12/25/21 07:01 Home Medications: Amlodipine [Norvasc*] 5 mg PO BID 12/25/21 Doxazosin [Cardura*] 2 mg PO BID 12/25/21 Doxycycline Hyclate 50 mg PO DAILY 12/25/21 Eszopiclone [Lunesta] 3 mg PO BEDTIME PRN 12/25/21 Metformin ER [Glucophage ER*] 500 mg PO BID 12/25/21 Rosuvastatin [Crestor*] 5 mg PO DAILY 12/25/21 Telmisartan/Hydrochlorothiazid [Telmisartan-Hctz 80-12.5 mg Tb] 1 tab PO DAILY 12/25/21 Followup: Jefry Nagel MD [Primary Care Provider] -
[2021-12-27] MEDS: INSULIN -REGULAR HUMAN 50 UNIT/0.5 ML ML SQ SCH ×2 (07:30→11:30)
[2021-12-27] MEDS: ENOXAPARIN 40 MG/0.4 ML SQ SCH (09:17)
--- NOTE | 2021-12-27 10:54 | PN ---
Date of Progress Note: 12/26/2021 Subjective: The patient has been in the hospital since 12/25/2021, being followed by Dr. Degroot for chest pain, dizziness, hypertension, recent normal echo and recent abnormal stress test. He is set u p for a heart catheterization today by Dr. Degroot. He continues to have some chest pressure with and without exertion, but he has normal sinus rhythm. No fever. Normal examination. We will continue his present regimen, see what the heart catheterization shows, and plan further therapy accordingly. CLAUDETTE/ITZEL Voice ID: [id number] Report ID: [id number]
[2021-12-27 11:57] VITALS: BP 175/79; TEMP 97.6
[2021-12-27] MEDS ORDERED: LOSARTAN/HCTZ 50-12.5 PO ONE (13:00)
== END 2021-12-27 12:35 | disposition home or self-care (01) | DRG 287 ==
LOC: ER 18:48 → ERHOLD 22:47 → 2ND 22:56 → OBSVTOIN 12-25 20:03
PROVIDERS: ADMIT Hospitalist; ATTEND Hospitalist
PROC: B201YZZ Plain Radiography of Multiple Coronary Arteries using Other Contrast (ICD-10-PCS; principal; 2021-12-26)
DX: R07.89 Other chest pain (principal); I25.110 Atherosclerotic heart disease of native coronary artery with unstable angina pectoris; I10 Essential (primary) hypertension; E11.9 Type 2 diabetes mellitus without complications; E78.5 Hyperlipidemia, unspecified; R94.39 Abnormal result of other cardiovascular function study; Z20.822 Contact with and (suspected) exposure to COVID-19
CPT/HCPCS: 36415; 70450; 71045; 80048; 80061; 80076; 81003; 82947; 83735; 83880; 84100; 84439; 84443; 84484; 85025; 85610; 93005; 93454; 99285; C1893; G0378; J1644; J1650; J2250; J3010; J7040; U0003

== ENCOUNTER 2022-02-02 15:29 | Emergency (ER) | payer OTHER, MEDICARE ==
[2022-02-02 16:37] LABS: Absolute Lymphocytes (CBC) 1.8 K/uL (0.7-4.9); Hematocrit 39.9 % (39.6-49.0); Lymphocytes % 21.5 % (15.3-44.8); MPV 9.2 fL (7.6-11.3)
[2022-02-02 16:48] LABS: Magnesium 1.9 mg/dL (1.8-2.4); Potassium 3.6 mmol/L (3.5-5.1)
--- NOTE | 2022-02-02 17:33 | ER ---
Nurse's Notes [facility] Name: Jignesh Buchanan Age: 71 yrs Sex: Male : 1950 Arrival Date: 02/02/2022 Time: 15:32 Bed 23 Private MD: Diagnosis: Hypertensive heart disease without heart failure Presentation: 02/02 15:35 Chief complaint: Patient states: "I've been seeing cardiology recently and he wanted me ab2 to increase my heart rate by exercising so I did yesterday and since then my blood pressure has been elevated. At home it was 219/110." Pt denies chest pain or SOB. Coronavirus screen: Vaccine status: Patient reports receiving the 2nd dose of the covid vaccine. Client denies travel out of the [place] in the last 14 days. At this time, the client does not indicate any symptoms associated with coronavirus-19. Ebola Screen: Patient negative for fever greater than or equal to 101.5 degrees Fahrenheit, and additional compatible Ebola Virus Disease symptoms Patient denies exposure to infectious person. Patient denies travel to an Ebola-affected area in the 21 days before illness onset. No symptoms or risks identified at this time. Initial Sepsis Screen: Does the patient meet any 2 criteria? No. Patient's initial sepsis screen is negative. Does the patient have a suspected source of infection? No. Patient's initial sepsis screen is negative. Risk Assessment: Do you want to hurt yourself or someone else? Patient reports no desire to harm self or others. Onset of symptoms is unknown. 15:35 Acuity: NERI 3 ab2 15:35 Method Of Arrival: Ambulatory ab2 Triage Assessment: 15:40 General: Appears in no apparent distress. comfortable, Behavior is calm, cooperative, ab2 appropriate for age. Pain: Denies pain. Neuro: Level of Consciousness is awake, alert, obeys commands, Oriented to person, place, time, situation, Appropriate for age Tripper are equal bilaterally Moves all extremities. Gait is steady, Speech is normal, Facial symmetry appears normal. Cardiovascular: No deficits noted. Denies chest pain, shortness of breath, Patient's skin is warm and dry. Respiratory: Airway is patent Respiratory effort is even, unlabored, Respiratory pattern is regular, symmetrical. GI: No deficits noted. No signs and/or symptoms were reported involving the gastrointestinal system. : No deficits noted. No signs and/or symptoms were reported regarding the genitourinary system. Historical: - Allergies: 15:39 No Known Allergies; ab2 - PMHx: 15:39 Hyperlipidemia; Hypertension; pre-diabetic; ab2 - PSHx: 15:39 althea shoulders; left leg; ab2 - Immunization history:: Adult Immunizations up to date. - Social history:: Smoking status: Patient denies any tobacco usage or history of. Screenin:33 Abuse screen: Denies threats or abuse. Nutritional screening: No deficits noted. jb4 Tuberculosis screening: No symptoms or risk factors identified. Fall Risk None identified. Assessment: 16:33 General: Appears in no apparent distress. comfortable, Behavior is calm, cooperative, jb4 appropriate for age. Pain: Denies pain. Neuro: Level of Consciousness is awake, alert, obeys commands, Oriented to person, place, time, situation. Cardiovascular: Patient's skin is warm and dry. Respiratory: Airway is patent Respiratory effort is even, unlabored, Respiratory pattern is regular, symmetrical. GI: No signs and/or symptoms were reported involving the gastrointestinal system. : No signs and/or symptoms were reported regarding the genitourinary system. EENT: No signs and/or symptoms were reported regarding the EENT system. Derm: Skin is intact, Skin is pink, warm \\T\\ dry. Musculoskeletal: Circulation, motion, and sensation intact. Range of motion: intact in all extremities. 17:44 Reassessment: Patient appears in no apparent distress at this time. Patient and/or jb4 family updated on plan of care and expected duration. Pain level reassessed. Patient is alert, oriented x 3, equal unlabored respirations, skin warm/dry/pink. Vital Signs: 15:35 BP 163 / 87; Pulse 76; Resp 18; Temp 97.9; Pulse Ox 98% on R/A; Weight 117.03 kg; ab2 Height 6 ft. 0 in. (182.88 cm); Pain 0/10; 17:44 BP 156 / 65; Pulse 56; Resp 16; Pulse Ox 99% on R/A; jb4 15:35 Body Mass Index 34.99 (117.03 kg, 182.88 cm) ab2 ED Course: 15:32 Patient arrived in ED. ja2 15:39 Triage completed. ab2 15:40 Arm band placed on right wrist. ab2 15:44 Nik Means PA is PHCP. cp 15:44 Nik Houston MD is Attending Physician. cp 16:09 Landon Adam, RN is Primary Nurse. jb4 16:23 No provider procedures requiring assistance completed. Initial lab(s) drawn, by ga, jb4 sent to lab. Inserted saline lock: 18 gauge in right forearm, using aseptic technique. Blood collected. 16:33 Patient has correct armband on for positive identification. Placed in gown. Bed in low jb4 position. Call light in reach. Side rails up X 1. Client placed on continuous cardiac and pulse oximetry monitoring. NIBP monitoring applied. 17:44 IV discontinued, intact, bleeding controlled, No redness/swelling at site. Pressure jb4 dressing applied. Administered Medications: No medications were administered Outcome: 17:33 Discharge ordered by . cp 17:44 Discharged to home ambulatory. jb4 17:44 Condition: stable 17:44 Discharge instructions given to patient, Instructed on discharge instructions, follow up and referral plans. Demonstrated understanding of instructions, follow-up care. 17:47 Patient left the ED. jb4 Signatures: Nik Means PA PA cp Landon Adam, RN RN jb4 Abbi Gutierrez Alexis ab2
--- NOTE | 2022-02-02 17:34 | EDPHYS ---
Physician Documentation [facility] Name: Jignesh Buchanan Age: 71 yrs Sex: Male : 1950 Arrival Date: 02/02/2022 Time: 15:32 Bed 23 Private MD: ED Physician Nik Houston HPI: 02/02 15:58 This 71 yrs old Male presents to ER via Ambulatory with complaints of High Blood cp Pressure. 15:58 The patient has elevated blood pressure and discovered this at home, with a home cp device. Onset: The symptoms/episode began/occurred yesterday. Associated signs and symptoms: Pertinent negatives: chest pain, dizziness, dyspnea, headache, visual changes, vomiting, weakness. Severity of symptoms: At its worst the blood pressure was 280 mm Hg, in the emergency department the blood pressure is improved, markedly, 163 mm Hg. 16:00 Patient admits he has been checking his blood pressure throughout the day since cp yesterday with home wrist device. Patient states was working outside, checked blood pressure and recorded elevated reading. Historical: - Allergies: 15:39 No Known Allergies; ab2 - PMHx: 15:39 Hyperlipidemia; Hypertension; pre-diabetic; ab2 - PSHx: 15:39 althea shoulders; left leg; ab2 - Immunization history:: Adult Immunizations up to date. - Social history:: Smoking status: Patient denies any tobacco usage or history of. ROS: 16:00 Constitutional: Negative for body aches, chills, fever. cp 16:00 Cardiovascular: Negative for chest pain, edema, palpitations. cp 16:00 Respiratory: Negative for cough, shortness of breath, wheezing. 16:00 Abdomen/GI: Negative for abdominal pain, nausea, vomiting, and diarrhea. 16:00 : Negative for urinary symptoms, difficulty urinating. 16:00 Neuro: Negative for altered mental status, dizziness, headache, syncope, weakness. 16:00 All other systems are negative. cp Exam: 16:05 Constitutional: The patient appears in no acute distress, alert, awake, cp non-diaphoretic, non-toxic, well developed, well nourished. 16:05 Head/Face: Normocephalic, atraumatic. cp 16:05 Eyes: Periorbital structures: appear normal, Conjunctiva: normal, no exudate, no injection, Sclera: no appreciated abnormality, Lids and lashes: appear normal, bilaterally. 16:05 ENT: External ear(s): are unremarkable, Nose: is normal, Mouth: Lips: moist, Oral mucosa: pink and intact, moist, Posterior pharynx: Airway: no evidence of obstruction, patent. 16:05 Neck: ROM/movement: is normal, is supple, without pain, no range of motions limitations. 16:05 Chest/axilla: Inspection: normal. 16:05 Cardiovascular: Rate: normal, Rhythm: regular, Edema: is not appreciated, JVD: is not appreciated. 16:05 Respiratory: the patient does not display signs of respiratory distress, Respirations: normal, no use of accessory muscles, no retractions, labored breathing, is not present, Breath sounds: are clear throughout, no decreased breath sounds, no stridor, no wheezing. 16:05 Abdomen/GI: Exam negative for discomfort, distension, guarding, Inspection: abdomen appears normal. 16:05 Neuro: Orientation: to person, place \T\ time. Mentation: is normal, Motor: moves all fours, strength is normal, Sensation: is normal, Gait: is steady, at a normal pace, without difficulty. 16:31 ECG was reviewed by the Attending Physician. cp Vital Signs: 15:35 BP 163 / 87; Pulse 76; Resp 18; Temp 97.9; Pulse Ox 98% on R/A; Weight 117.03 kg; ab2 Height 6 ft. 0 in. (182.88 cm); Pain 0/10; 17:44 BP 156 / 65; Pulse 56; Resp 16; Pulse Ox 99% on R/A; jb4 15:35 Body Mass Index 34.99 (117.03 kg, 182.88 cm) ab2 MDM: 15:48 Patient medically screened. gabriela 17:32 Data reviewed: vital signs, nurses notes, lab test result(s), EKG, and as a result, I cp will discharge patient. 17:32 Differential diagnosis: hypertensive crisis, Malignant HTN, CVA, intracerebral cp hemorrhage. Counseling: I had a detailed discussion with the patient and/or guardian regarding: the historical points, exam findings, and any diagnostic results supporting the discharge/admit diagnosis, the presence of at least one elevated blood pressure reading (>120/80) during this emergency department visit, lab results, the need for outpatient follow up, a family practitioner, to return to the emergency department if symptoms worsen or persist or if there are any questions or concerns that arise at home. 02/02 15:58 Order name: CBC with Diff; Complete Time: 16:49 cp 02/02 16:49 Interpretation: Normal except: RBC 4.20; PLT 145. cp 02/02 15:58 Order name: BMP; Complete Time: 16:49 cp 02/02 16:49 Interpretation: Normal except: CL 109; GLUC 130; GFR 76. cp 02/02 15:58 Order name: EKG; Complete Time: 15:58 cp 02/02 15:58 Order name: EKG - Nurse/Tech; Complete Time: 16:23 cp 02/02 15: Order name: Magnesium; Complete Time: 16:49 cp 02/02 15:58 Order name: IV; Complete Time: 16:23 cp EC:31 Rate is 61 beats/min. Rhythm is regular. OK interval is prolonged at 242 msec. QRS cp interval is prolonged at 148 msec. QT interval is normal. T waves are Inverted in leads aVL, aVR. Interpreted by me. Reviewed by me. Administered Medications: No medications were administered Disposition Summary: 02/02/22 17:33 Discharge Ordered Location: Home cp Problem: chronic cp Symptoms: have improved cp Condition: Stable cp Diagnosis - Hypertensive heart disease without heart failure cp Followup: cp - With: Private Physician - When: 2 - 3 days - Reason: Recheck today's complaints Discharge Instructions: - Discharge Summary Sheet cp - Hypertension, Adult cp - Form - Blood Pressure Record Sheet cp - How to Take Your Blood Pressure cp Forms: - Medication Reconciliation Form cp - Thank You Letter cp - Antibiotic Education cp - Prescription Opioid Use cp Signatures: Dispatcher [employer] Nik Godinez MD MD cha Page, Corey, PA PA cp Boni Lee2
[2022-02-02 18:54] VITALS: TEMP 97.9
[2022-02-02 18:56] VITALS: BP 156/65; O2SAT 99
--- NOTE | 2022-02-03 14:35 | EKG ---
Test Date: 2022-02-02 Test Time: 16:24:47 High Man: JOSE MEASUREMENT RESULTS: Intervals: Rate: 61 CO: 242 QRSD: 148 QT: 444 QTc: 446 Houston: P: 61 CO: 242 QRS: -49 T: 79 INTERPRETIVE STATEMENTS: Sinus rhythm with 1st degree AV block Left bundle branch block Abnormal ECG Compared to ECG 12/24/2021 19:10:04 Left bundle-branch block now present Left-axis deviation no longer present Left ventricular hypertrophy no longer present Early repolarization no longer present Myocardial infarct finding no longer present Electronically Signed On 02-03-22 14:32:22 CDT by Kev Hooper
== END 2022-02-02 17:47 | disposition home or self-care (01) ==
LOC: ER 15:29
DX: I11.9 Hypertensive heart disease without heart failure (principal); I10 Essential (primary) hypertension; R73.03 Prediabetes
CPT/HCPCS: 36415; 80048; 83735; 85025; 93005; 99283

== ENCOUNTER 2022-07-01 18:47 | Emergency (ER) | payer OTHER, MEDICARE ==
[2022-07-01 19:39] LABS: Absolute Lymphocytes (CBC) 1.3 K/uL (0.7-4.9); Hematocrit 40.2 % (39.6-49.0); Lymphocytes % 15.3 % (15.3-44.8); MCV 97.4 fL (80-100); MPV 8.7 fL (7.6-11.3); RBC Red Blood Cell Count 4.13 M/uL (4.33-5.43)
[2022-07-01] MEDS ORDERED: NA CHLORIDE 0.9% 500 ML ONE (19:41)
[2022-07-01 19:59] LABS: Albumin 3.9 g/dL (3.4-5.0); Bilirubin Total 3.9 mg/dL (0.2-1.0); Potassium 3.4 mmol/L (3.5-5.1); Protein, Total 7.4 g/dL (6.4-8.2)
--- NOTE | 2022-07-01 21:10 | RAD REPORT ---
EXAM DESCRIPTION: CT - Abdomen Pelvis W Contrast - 07/01/2022 8:57 pm CLINICAL HISTORY: Abdominal pain, acute, nonlocalized COMPARISON: Abdomen Pelvis W Contrast dated 05/25/2021 TECHNIQUE: Biphasic, helical CT imaging of the abdomen and pelvis was performed following 100 ml non -ionic IV contrast. No oral contrast administered. All CT scans are performed using dose optimization technique as appropriate and may include automated exposure control or mA/KV adjustment according to patient size. FINDINGS: No suspicious findings in the lung bases. The liver, spleen, and pancreas show no suspicious findings. Gallbladder has been resected. Central i ntrahepatic biliary radicles are prominent. Common hepatic duct is 14 mm with the common bile duct in the head of the pancreas 12 mm. This degree of dilatation may still be reservoir effect that can occ ur after a cholecystectomy. Duct stones can be occult. A small isodense mass cannot be excluded. Mckinley elation is needed with any biliary obstructive clinical or laboratory findings. Symmetric renal function is seen with no hydronephrosis or suspicious renal mass. No pyelonephritis o r acute parenchymal process. No bladder abnormalities. Small left adrenal mass has not change from 20 21. Enlarged prostate gland again noted. Small hiatal hernia present. No dilated bowel loops or bowel wall thickening. Diverticulosis is prese nt without diverticulitis. No appendicitis findings. No free air, free fluid or inflammatory strandin g. No mass or bulky lymphadenopathy. Small fat only inguinal hernia present. No suspicious bony findings. IMPRESSION: Intrahepatic and extrahepatic biliary tree dilatation present in this post cholecystecto my patient. The degree of dilatation may represent the reservoir effect that can occur after a cholecystectomy. D uct stones can be occult. A small isodense mass could be occult. Correlation is needed with any bilia ry obstructive clinical or laboratory findings.
[2022-07-01 22:18] LABS: SARS-CoV-2 Antigen Rapid Res Negative (Negative)
--- NOTE | 2022-07-01 23:10 | EDPHYS ---
Physician Documentation [facility] Name: Jignesh Buchanan Age: 72 yrs Sex: Male : 1950 Arrival Date: 07/01/2022 Time: 18:49 Bed 17 Private MD: Jefry Nagel B ED Physician Ilya Capps HPI: 07/02 22:30 This 72 yrs old Male presents to ER via Ambulatory with complaints of Abdominal kdr Cramping. 22:31 Patient states that he has had intermittent abdominal pain after eating for the past kdr few months. Usually has pain within 30 minutes to an hour after he eats and that last for couple of hours and resolved. Today the pain was more persistent started around 1 AM is persisted throughout the day.. Onset: The symptoms/episode began/occurred suddenly, today. Severity of symptoms: At their worst the symptoms were mild moderate just prior to arrival, in the emergency department the symptoms are unchanged. The patient has experienced similar episodes in the past, but today's symptoms are worse. The patient has not recently seen a physician. Historical: - Allergies: 07/01 18:56 No Known Allergies; bm7 - Home Meds: 18:56 amlodipine 5 mg tab 1 tab once daily [Active]; doxazosin 4 mg Oral tab 1 tab once daily bm7 [Active]; doxycycline hyclate 75 mg Oral TbEC 1 tab once daily [Active]; lunesta-eszopiclone 3 mg nightly [Active]; metformin 500 mg Oral Tb24 1 tab 2 times per day [Active]; rosuvastatin 5 mg Oral tab 1 tab once daily [Active]; telmisartan-hydrochlorothiazid 80-12.5 mg Oral tab 1 tab once daily [Active]; - PMHx: 18:56 Hyperlipidemia; Hypertension; pre-diabetic; bm7 - PSHx: 18:56 althea shoulders; left leg; Cholecystectomy; bm7 - Immunization history:: Adult Immunizations up to date, Client reports receiving the 2nd dose of the Covid vaccine, Client reports receiving the 1st dose of the Covid vaccine. - Social history:: Smoking status: Patient denies any tobacco usage or history of. ROS: 07/02 22:31 Constitutional: Negative for fever, chills, and weight loss, Eyes: Negative for injury, kdr pain, redness, and discharge, Neck: Negative for injury, pain, and swelling, Cardiovascular: Negative for chest pain, palpitations, and edema, Respiratory: Negative for shortness of breath, cough, wheezing, and pleuritic chest pain, Back: Negative for injury and pain, : Negative for injury, bleeding, discharge, and swelling, MS/Extremity: Negative for injury and deformity, Skin: Negative for injury, rash, and discoloration, Neuro: Negative for headache, weakness, numbness, tingling, and seizure activity. Psych: Negative for depression, anxiety, suicide ideation, homicidal ideation, and hallucinations, Allergy/Immunology: Negative for hives, rash, and allergies, Endocrine: Negative for neck swelling, polydipsia, polyuria, polyphagia, and marked weight changes, Hematologic/Lymphatic: Negative for swollen nodes, abnormal bleeding, and unusual bruising. Abdomen/GI: Positive for nausea and vomiting, abdominal cramps, abdominal distension, Negative for vomiting, constipation, rectal pain, rectal bleeding. Exam: 22:31 Constitutional: This is a well developed, well nourished patient who is awake, alert, kdr and in no acute distress. Head/Face: Normocephalic, atraumatic. Eyes: Pupils equal round and reactive to light, extra-ocular motions intact. Lids and lashes normal. Conjunctiva and sclera are non-icteric and not injected. Cornea within normal limits. Periorbital areas with no swelling, redness, or edema. Neck: Trachea midline, no thyromegaly or masses palpated, and no cervical lymphadenopathy. Supple, full range of motion without nuchal rigidity, or vertebral point tenderness. No Meningismus. Chest/axilla: Normal chest wall appearance and motion. Nontender with no deformity. No lesions are appreciated. Cardiovascular: Regular rate and rhythm with a normal S1 and S2. No gallops, murmurs, or rubs. Normal PMI, no JVD. No pulse deficits. Respiratory: Lungs have equal breath sounds bilaterally, clear to auscultation and percussion. No rales, rhonchi or wheezes noted. No increased work of breathing, no retractions or nasal flaring. Back: No spinal tenderness. No costovertebral tenderness. Full range of motion. Skin: Warm, dry with normal turgor. Normal color with no rashes, no lesions, and no evidence of cellulitis. MS/ Extremity: Pulses equal, no cyanosis. Neurovascular intact. Full, normal range of motion. Neuro: Awake and alert, GCS 15, oriented to person, place, time, and situation. Cranial nerves II-XII grossly intact. Motor strength 5/5 in all extremities. Sensory grossly intact. Cerebellar exam normal. Normal gait. Psych: Awake, alert, with orientation to person, place and time. Behavior, mood, and affect are within normal limits. 22:31 Abdomen/GI: Inspection: abdomen appears normal, Bowel sounds: active, Palpation: soft, mild abdominal tenderness, in the epigastric area, right upper quadrant and left upper quadrant. Vital Signs: 07/01 18:54 BP 171 / 75; Pulse 66; Resp 18; Temp 97.8(TE); Pulse Ox 99% on R/A; Weight 110.68 kg; bm7 Height 6 ft. 0 in. (182.88 cm); Pain 6/10; 19:45 BP 158 / 71; Pulse 54; Resp 16; Pulse Ox 99% on R/A; jb4 20:30 BP 163 / 77; Pulse 55; Resp 16; Pulse Ox 95% on R/A; jb4 21:45 BP 154 / 70; Pulse 66; Resp 16; Pulse Ox 98% on R/A; jb4 22:45 BP 157 / 78; Pulse 57; Resp 16; Pulse Ox 95% on R/A; jb4 23:45 BP 145 / 81; Pulse 62; Resp 16; Pulse Ox 94% on R/A; jb4 07/02 01:15 BP 156 / 80; Pulse 60; Resp 16; Pulse Ox 96% on R/A; jb4 07/01 18:54 Body Mass Index 33.09 (110.68 kg, 182.88 cm) bm7 MDM: 07/01 23:09 Patient medically screened. kdr 07/02 22:31 Data reviewed: vital signs, nurses notes, lab test result(s), radiologic studies. kdr Counseling: I had a detailed discussion with the patient and/or guardian regarding: the historical points, exam findings, and any diagnostic results supporting the discharge/admit diagnosis, lab results, radiology results, the need to transfer to another facility. 07/01 18:59 Order name: CBC with Diff 7 07/01 18:59 Order name: CMP bm7 07/01 18:59 Order name: Lipase bm7 07/01 19:42 Order name: CBC with Automated Diff; Complete Time: 21:28 EDMS 07/01 20:05 Order name: Comprehensive Metabolic Panel; Complete Time: 21:28 EDMS 07/01 20:05 Order name: Lipase; Complete Time: 21:28 EDMS 07/01 18:59 Order name: IV Saline Lock; Complete Time: 19:36 bm7 07/01 18:59 Order name: Labs collected and sent; Complete Time: 19:36 bm7 07/01 19:31 Order name: CT Abd/Pelvis - IV Contrast Only kdr 07/01 21:10 Order name: CT; Complete Time: 21:28 EDMS 07/01 21:50 Order name: SARS RAPID wm 07/01 22:19 Order name: SARS-COV-2 Antigen Rapid; Complete Time: 23:13 EDMS Administered Medications: 07/01 19:48 Drug: NS 0.9% 500 ml Route: IV; Rate: bolus; Site: right antecubital; jb4 20:15 Follow up: Response: No adverse reaction; IV Status: Completed infusion; IV Intake: jb4 500ml Disposition Summary: 07/01/22 23:09 Transfer Ordered Transfer Location: [facility] kdr Reason: Higher level of care kdr Condition: Stable kdr Problem: new kdr Symptoms: have improved kdr Accepting Physician: mitzy(07/02/22 01:46) jb4 Diagnosis - Upper abdominal pain, unspecified kdr - CBD obstruction kdr Forms: - Medication Reconciliation Form kdr - SBAR form kdr Signatures: Dispatcher [employer] EDFL Ilya Capps MD MD kdr Landon Adam, RN RN jb4 Melody Wynn, RN RN bm7 Corrections: (The following items were deleted from the chart) 07/02 01:46 07/01 23:09 mitzy kdr jb4
--- NOTE | 2022-07-01 23:10 | ER ---
Nurse's Notes [facility] Name: Jignesh Buchanan Age: 72 yrs Sex: Male : 1950 Arrival Date: 07/01/2022 Time: 18:49 Bed 17 Private MD: Jefry Nagel B Diagnosis: Upper abdominal pain, unspecified;CBD obstruction Presentation: 07/01 18:55 Chief complaint: Patient states: I have had abdominal cramps after I ate for the last bm7 few weeks and I need to figure out what is causing it. Coronavirus screen: At this time, the client does not indicate any symptoms associated with coronavirus-19. Ebola Screen: No symptoms or risks identified at this time. Initial Sepsis Screen: Does the patient meet any 2 criteria? No. Patient's initial sepsis screen is negative. Does the patient have a suspected source of infection? No. Patient's initial sepsis screen is negative. Risk Assessment: Do you want to hurt yourself or someone else? Patient reports no desire to harm self or others. Onset of symptoms is unknown. 18:55 Method Of Arrival: Ambulatory 7 18:55 Acuity: NERI 3 bm7 Triage Assessment: 18:56 General: Appears in no apparent distress. uncomfortable, obese, Behavior is calm, bm7 cooperative, appropriate for age. Pain: Complains of pain in umbilical area. EENT: No deficits noted. No signs and/or symptoms were reported regarding the EENT system. Neuro: No deficits noted. Cardiovascular: No deficits noted. Respiratory: No deficits noted. GI: Abdomen is round distended, Reports bloating, cramping. : No deficits noted. No signs and/or symptoms were reported regarding the genitourinary system. Derm: No deficits noted. No signs and/or symptoms reported regarding the dermatologic system. Musculoskeletal: No deficits noted. No signs and/or symptoms reported regarding the musculoskeletal system. Historical: - Allergies: 18:56 No Known Allergies; bm7 - Home Meds: 18:56 amlodipine 5 mg tab 1 tab once daily [Active]; doxazosin 4 mg Oral tab 1 tab once daily bm7 [Active]; doxycycline hyclate 75 mg Oral TbEC 1 tab once daily [Active]; lunesta-eszopiclone 3 mg nightly [Active]; metformin 500 mg Oral Tb24 1 tab 2 times per day [Active]; rosuvastatin 5 mg Oral tab 1 tab once daily [Active]; telmisartan-hydrochlorothiazid 80-12.5 mg Oral tab 1 tab once daily [Active]; - PMHx: 18:56 Hyperlipidemia; Hypertension; pre-diabetic; bm7 - PSHx: 18:56 althea shoulders; left leg; Cholecystectomy; bm7 - Immunization history:: Adult Immunizations up to date, Client reports receiving the 2nd dose of the Covid vaccine, Client reports receiving the 1st dose of the Covid vaccine. - Social history:: Smoking status: Patient denies any tobacco usage or history of. Screenin:26 Abuse screen: Denies threats or abuse. Nutritional screening: No deficits noted. jb4 Tuberculosis screening: No symptoms or risk factors identified. Fall Risk None identified. Assessment: 19:26 General: Appears in no apparent distress. comfortable, Behavior is calm, cooperative. jb4 Pain: Complains of pain in abdomen Pain does not radiate. Pain currently is 5 out of 10 on a pain scale. Quality of pain is described as crampy. Neuro: Level of Consciousness is awake, alert, obeys commands, Oriented to person, place, time, situation. Cardiovascular: Patient's skin is warm and dry. Respiratory: Airway is patent Respiratory effort is even, unlabored, Respiratory pattern is regular, symmetrical. GI: Abdomen is round non-distended, obese, Abd is soft X 4 quads Abd is non tender in right upper quadrant, right lower quadrant and left lower quadrant Abdomen is tender to palpation in left upper quadrant. : No signs and/or symptoms were reported regarding the genitourinary system. EENT: No signs and/or symptoms were reported regarding the EENT system. Derm: Skin is intact, Skin is pink, warm \T\ dry. Musculoskeletal: Circulation, motion, and sensation intact. Range of motion: intact in all extremities. 20:00 Reassessment: Ast 402 Alt 523, Provider notified. tw5 20:41 Reassessment: Patient appears in no apparent distress at this time. Patient and/or jb4 family updated on plan of care and expected duration. Pain level reassessed. Patient is alert, oriented x 3, equal unlabored respirations, skin warm/dry/pink. 21:55 Reassessment: Patient appears in no apparent distress at this time. Patient and/or jb4 family updated on plan of care and expected duration. Pain level reassessed. Patient is alert, oriented x 3, equal unlabored respirations, skin warm/dry/pink. 23:00 Reassessment: Patient appears in no apparent distress at this time. Patient and/or jb4 family updated on plan of care and expected duration. Pain level reassessed. Patient is alert, oriented x 3, equal unlabored respirations, skin warm/dry/pink. 23:55 Reassessment: Patient appears in no apparent distress at this time. Patient and/or jb4 family updated on plan of care and expected duration. Pain level reassessed. Patient is alert, oriented x 3, equal unlabored respirations, skin warm/dry/pink. 07/02 00:30 Reassessment: Patient appears in no apparent distress at this time. Patient and/or jb4 family updated on plan of care and expected duration. Pain level reassessed. Patient is alert, oriented x 3, equal unlabored respirations, skin warm/dry/pink. 01:30 Reassessment: Patient appears in no apparent distress at this time. Patient and/or jb4 family updated on plan of care and expected duration. Pain level reassessed. Patient is alert, oriented x 3, equal unlabored respirations, skin warm/dry/pink. Vital Signs: 07/01 18:54 BP 171 / 75; Pulse 66; Resp 18; Temp 97.8(TE); Pulse Ox 99% on R/A; Weight 110.68 kg; bm7 Height 6 ft. 0 in. (182.88 cm); Pain 6/10; 19:45 BP 158 / 71; Pulse 54; Resp 16; Pulse Ox 99% on R/A; jb4 20:30 BP 163 / 77; Pulse 55; Resp 16; Pulse Ox 95% on R/A; jb4 21:45 BP 154 / 70; Pulse 66; Resp 16; Pulse Ox 98% on R/A; jb4 22:45 BP 157 / 78; Pulse 57; Resp 16; Pulse Ox 95% on R/A; jb4 23:45 BP 145 / 81; Pulse 62; Resp 16; Pulse Ox 94% on R/A; jb4 07/02 01:15 BP 156 / 80; Pulse 60; Resp 16; Pulse Ox 96% on R/A; jb4 07/01 18:54 Body Mass Index 33.09 (110.68 kg, 182.88 cm) bm7 ED Course: 07/01 18:49 Patient arrived in ED. as 18:49 Jefry Nagel MD is Private Physician. as 18:54 Arm band placed on left wrist. bm7 18:56 Triage completed. bm7 19:20 Ilya Capps MD is Attending Physician. kdr 19:26 Patient has correct armband on for positive identification. Bed in low position. Call jb4 light in reach. Side rails up X 1. Client placed on continuous cardiac and pulse oximetry monitoring. NIBP monitoring applied. 19:26 Initial lab(s) drawn, by wv, sent to lab. Inserted saline lock: 18 gauge in right jb4 antecubital area, using aseptic technique. Blood collected. 19:36 CBC with Diff Sent. jb4 19:36 CMP Sent. jb4 19:36 Lipase Sent. jb4 19:54 Landon Adam, RN is Primary Nurse. jb4 21:52 Initiated transfer to [facility] with Joseline Power. 23:21 Pt accepted for transfer to [facility] by Dr. Mona Aguero. 07/02 01:30 No provider procedures requiring assistance completed. Patient transferred, IV remains jb4 in place. Administered Medications: 07/01 19:48 Drug: NS 0.9% 500 ml Route: IV; Rate: bolus; Site: right antecubital; jb4 20:15 Follow up: Response: No adverse reaction; IV Status: Completed infusion; IV Intake: jb4 500ml Medication: 07/02 01:15 VIS not applicable for this client. jb4 Intake: 07/01 20:15 IV: 500ml; Total: 500ml. jb4 Outcome: 23:09 ER care complete, transfer ordered by . kdr 07/02 01:30 Transferred by ground EMS to [facility], Transfer form completed. jb4 X-rays sent w/ patient. Condition: stable Discharge instructions given to patient, Instructed on the need for transfer, Demonstrated understanding of instructions. 01:46 Patient left the ED. jb4 Signatures: Ilya Capps MD MD kdr Melba Argueta as Landon Adam, RUFINO RN jb4 Melody Wynn, RN RN 7 Elvira Donovan Tiffany tw5 Corrections: (The following items were deleted from the chart) 07/01 23:46 21:52 Initiated transfer to [facility] with Joseline Swann [facility]
[2022-07-02 02:17] VITALS: TEMP 97.8
[2022-07-02 02:24] VITALS: BP 156/80; O2SAT 96
== END 2022-07-02 01:46 | disposition short-term general hospital (02) ==
LOC: ER 18:47
DX: K83.1 Obstruction of bile duct (principal); I10 Essential (primary) hypertension; E78.5 Hyperlipidemia, unspecified; R73.03 Prediabetes; Z90.49 Acquired absence of other specified parts of digestive tract; Z79.899 Other long term (current) drug therapy
CPT/HCPCS: 85025; 36415; 83690; 80053; 74177; 99285; 87811; Q9967; J7040

== ENCOUNTER 2023-06-07 09:26 | Inpatient (IN) | payer OTHER, MEDICARE ==
--- OUTSIDE RECORDS SUMMARY | 2023-06-07 09:32 | XMS REPORT | Continuity of Care Document ---
:1950 Author Organization [facility] t Address [address] [facility] [address] [place] [address] Care Team Providers Name Role Phone Pcp, Patient Does Not Have A Primary Care Physician +[id number] FRANKI TRIPP Attending Clinician Unavailable Provider, [facility] Attending Clinician Unavailable KIARA PANDYA Attending Clinician Unavailable Only, Gustavo [facility] Test Attending Clinician Unavailable Unknown, Attending Attending Clinician Unavailable Franki Tripp Attending Clinician KAYE CHENG Attending Clinician Unavailable Kaye Cheng Attending Clinician NAHUN GORDON Admitting Clinician Unavailable Nahun Gordon Admitting Clinician Payers Payer Name Policy Type Policy Number Effective Date Expiration Date S ource Problems Condition Condition Condition Status Onset Resolution Last Treating Co mments Source Name Details Category Date Date Treatment Clinician Date R17/Z98.89 R17/Z98.8 Diagnosis Active 2021-102022-08-22 Memoria 0/K80.50/K 90/K80.50/ 1-03 15:10:00 l 57.10 K57.10 00:00: [place] Active 00 08/03/2022 [facility] Common Common Diagnosis Active 2021-102022-07-22 Martín emoria bile duct bile duct 0-19 05:15:10 l calculus calculus 00:00: Hieu goode (disorder) (disorder) 00 Active 07/19/2022 Diagnosis 07/22/2022 [facility] Diverticul Diverticu Diagnosis Active 2021-102022-07-22 Memoria um of lum of 0-19 05:15:10 l duodenum duodenum 00:00: Hieu n Active 00 07/19/2022 Diagnosis 07/22/2022 [facility] Biliary Biliary Diagnosis Active 2021-102022-07-22 Memoria sludge sludge 0-19 05:15:10 l (disorder) (disorder) 00:00: Freddie mireles Active 00 07/19/2022 Diagnosis 07/22/2022 [facility] Patient Patient Diagnosis Active 2021-102022-07-22 Memoria encounter encounter 0-19 05:15:10 l status status 00:00: [place] (finding) (finding) 00 Active 07/19/2022 Diagnosis 07/22/2022 [facility] BILE DUCT BILE DUCT Diagnosis Active 2021-102022-07-02 Memoria OBSTRUCTIO OBSTRUCTIO 0-02 02:47:00 l N N Active 00:00: [place] 07/02/2022 00 [facility] BILIARY BILIARY Diagnosis Active 2021-102022-07-07 Memoria OBSTRUCTIO OBSTRUCTIO 0-02 21:45:00 l N, N, 00:00: [place] UNCONTROLL UNCONTROLL 00 ED HYPERT ED HYPERT Active 07/02/2022 [facility] Illness, Illness, Problem 2022-07-10 Memoria unspecifie unspecifie 06:41:05 l d d [place] 07/10/2022 [facility] Calculus Calculus Problem 2022-07-10 Memoria of bile of bile 06:41:05 l duct duct [place] without without cholangiti cholangiti s or s or cholecysti cholecysti tis with tis with obstructio obstructio n n 07/10/2022 [facility] Hyperlipid Hyperlipi Problem 2022-07-10 Memoria emia, demia, 06:41:05 l unspecifie unspecifie He rmann d d 07/10/2022 [facility] Type 2 Type 2 Problem 2022-07-10 Scar estela diabetes diabetes 06:41:05 l mellitus mellitus Hieu n with with hyperglyce hyperglyce elizabeth elizabeth 07/10/2022 [facility] Essential Essential Problem 2022-07-10 Memoria (primary) (primary) 06:41:05 l hypertensi hypertensi He rmann on on 07/10/2022 [facility] Hypokalemi Hypokalem Problem 2022-07-10 Memoria a ia 06:41:05 l 07/10/2022 Hieu n [facility] Other Other Problem 2022-07-10 Memor ia specified specified 06:41:05 l disorders disorders 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 07/10/2022 [facility] Diaphragma Problem 2022-07-10 M emoria tic hernia Diaphragma 06:41:05 l without tic hernia Myranda nn obstructio without n or obstructio gangrene n or gangrene 07/10/2022 [facility] Thrombocyt Thrombocy Problem 2022-07-10 Memoria openia, topenia, 06:41:05 l unspecifie unspecifie He rmann d d 07/10/2022 [facility] Obstructiv Obstructi Problem 2022-07-10 Memoria e sleep ve sleep 06:41:05 l apnea apnea [place] (adult) (adult) (pediatric (pediatric ) ) 07/10/2022 [facility] Contact Contact Problem 2022-07-10 Me moria with and with and 06:41:05 l (suspected (suspected He rmann ) exposure ) exposure to COVID19 to COVID19 [facility] Acquired Acquired Problem 2022-07-10 Memoria absence of absence of 06:41:05 l other other [place] specified specified parts of parts of digestive digestive tract tract 07/10/2022 [facility] Family Family Problem 2022-07-10 Scar estela history of history of 06:41:05 l diabetes diabetes Hieu n mellitus mellitus 07/10/2022 [facility] 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 Problem 2022-07-10 Memoria (current) (current) 06:41:05 l use of use of [place] oral oral hypoglycem hypoglycem ic drugs ic drugs 07/10/2022 [facility] Diabetes Diabetes Problem Active 2022-07-23 Memoria mellitus mellitus 22:40:52 l (disorder) (disorder) He rmann Active Problem 07/23/2022 [facility] Hypertensi Hypertens Problem Active 2022-07-23 Memoria ve christy 22:40:52 l disorder, disorder, Herm tangela systemic systemic arterial arterial (disorder) (disorder) Active Problem 07/23/2022 [facility] ILLNESS, ILLNESS, Diagnosis Active 2022-07-02 Memoria UNSPECIFIE UNSPECIFIE 02:47:00 l D D Active [place] [facility] OBSTRUCTIO OBSTRUCTI Diagnosis Active 2022-07-07 Memoria N OF BILE ON OF BILE 21:45:00 l DUCT DUCT [place] Active [facility] ESSENTIAL ESSENTIAL Diagnosis Active 2022-07-07 Memoria (PRIMARY) (PRIMARY) 21:45:00 l HYPERTENSI HYPERTENSI He rmann ON ON Active [facility] TYPE 2 TYPE 2 Diagnosis Active 2022-07-07 Me moria DIABETES DIABETES 21:45:00 l MELLITUS MELLITUS Hieu n WITH WITH HYPERGLYCE HYPERGLYCE Active [facility] History of Past Illness Condition Condition Condition Status Onset Resolution Last Treating Co mments Source Name Details Category Date Date Treatment Clinician Date Disease of Disease Diagnosis 2021-102022-07-22 2022-07-22 Memoria biliary of biliary 0-19 05:15:10 05:15:10 l tract tract 17:01: [place] (disorder) (disorder) 00 Diagnosis 07/22/2022 [facility] Screening Screening Diagnosis 2021-102022-07-22 2022-07-22 Memoria for for 0-19 05:15:10 05:15:10 l malignant malignant 17:01: Herm tangela neoplasm neoplasm 00 of colon of colon done done 07/19/2022 Diagnosis 07/22/2022 [facility] Past Past Diagnosis 2021-102022-07-22 2022-07-22 Memoria history of history of 0-19 05:15:10 05:15:10 l procedure procedure 15:35: Herm tangela (context-d (context-d 00 ependent ependent category) category) 07/19/2022 Diagnosis 07/22/2022 [facility] Calculus Calculus Diagnosis 2021-102022-07-22 2022-07-22 Memoria of bile of bile 0-19 05:15:10 05:15:10 l duct duct 15:35: [place] (disorder) (disorder) 00 07/19/2022 Diagnosis 07/22/2022 [facility] Diverticul Diverticu Diagnosis 2021-102022-07-22 2022-07-22 Memoria osis of losis of - 05:15:10 05:15:10 l small small 15:35: [place] intestine intestine 00 (disorder) (disorder) 07/19/2022 Diagnosis 07/22/2022 [facility] Jaundice Jaundice Diagnosis 2021-102022-07-22 2022-07-22 Memoria (finding) (finding) 05:15:10 05:15:10 l 07/19/2022 15:35: Hieu n Diagnosis 00 07/22/2022 [facility] Allergies, Adverse Reactions, Alerts Allergy Allergy Status Severity Reaction(s) Onset Inactive Treating Comm ents Source Name Type Date Date Clinician NO KNOWN Drug Active [facility] [place] Social History Social Habit Start Date Stop Date Quantity Comments Source Exposure to 2022-07-26 2022-08-05 Not sure [facility] SARS-CoV-2 (event) 00:00:00 09:08:00 [facility] Social History 2022-07-02 2022-07-02 [facility] 08:46:26 08:46:26 Sex [birth year] At [birth year] [facility] 00:00:00 00:00:00 [facility] Smoking Status Start Date Stop Date Source Tobacco smoking consumption [facility] Tobacco smoking status [facility] Medications Ordered Filled Start Stop Current Ordering Indication Dosage Frequency Signature Comments Components Source Medication Medication Date Date Medication? Clinician (SIG) Name Name Augmentin 2021-10 No 500 mg =, Mem oria 500 mg oral 0-04 PO, Q12H, l tablet 15:34: X 5 day, # Myranda nn 00 10 tab, 0 Refill(s), Pharmacy: [facility] [place], 182.88, cm, 07/02/22 20:16:00 CDT, Height, 110.057, kg, 07/02/22 20:16:00 CDT, Weight potassium 2021-10 Yes 20 mEq = 1 Me moria chloride 20 0-04 tab, PO, l mEq oral 15:34: Daily, # 5 Her mcfarlane tablet, 00 tab, 0 extended Refill(s), release Pharmacy: ([facility]) [facility] [place], 182.88, cm, 07/02/22 20:16:00 CDT, Height, 110.057, kg, 07/02/22 20:16:00 CDT, Weight potassium 2021-10 Yes 20 mEq = 1 Me moria chloride 20 0-04 tab, PO, l mEq oral 15:34: Daily, # 5 Her mcfarlane tablet, 00 tab, 0 extended Refill(s), release Pharmacy: ([facility]) [facility] [place], 182.88, cm, 07/02/22 20:16:00 CDT, Height, 110.057, kg, 07/02/22 20:16:00 CDT, Weight Augmentin 2021-10 No 500 mg =, Mem oria 500 mg oral 0-04 PO, Q12H, l tablet 15:34: X 5 day, # Myranda nn 00 10 tab, 0 Refill(s), Pharmacy: [facility] [place], 182.88, cm, 07/02/22 20:16:00 CDT, Height, 110.057, kg, 07/02/22 20:16:00 CDT, Weight potassium 2021-10 No /= 14 Memoria chloride 0-04 [place], l 14:00: january [place] 00 dissolve each 20 mEq tablet in 4 oz of water. Allow about 2 minutes for the tablets to disintegra te. Stir before giving to prepare slurry and administer . Please exclude patient's with feeding tube less than 14 [place] (Dobhoff, J-tube, etc) and pediatric and patients. potassium 2021-10 No /= 14 Memoria chloride 0-04 [place], l 14:00: january [place] 00 dissolve each 20 mEq tablet in 4 oz of water. Allow about 2 minutes for the tablets to disintegra te. Stir before giving to prepare slurry and administer . Please exclude patient's with feeding tube less than 14 [place] (Dobhoff, J-tube, etc) and pediatric and patients. Dextrose 2021-10 No 12.5 gm, Memor ia 50% Syringe 0-04 25 mL, l (D50W) 00:37: Route: [place] 00 IVP, Drug Form: INJ, Dosing Weight 110.057, kg, PRN, PRN Blood Glucose Results, Start date: 07/03/22 19:37:00 CDT, Duration: 30 day, Stop date: 08/02/22 19:36:00 CDT, 0 glucagon 2021-10 No 1 mg, Memoria 0-04 Route: IM, l 00:37: Drug form: [place] 00 PDR/INJ, PRN, Dosing Weight 110.057, kg, PRN Blood Glucose Results, Start date: 07/03/22 19:37:00 CDT, Duration: 30 day, Stop date: 08/02/22 19:36:00 CDT, 0 insulin 2021-10 No Notes: Memoria lispro 0-04 (Same as: l 00:37: Humalog) [place] 00 Roll in palms of hands gently; Do not shake vigorously . WASTE: F/P - Black; E - Municipal Trash Bin Stable for 28 days at room temperatur e. Expires in days from ____Date Dextrose 2021-10 No 12.5 gm, Memor ia 50% Syringe 0-04 25 mL, l (D50W) 00:37: Route: [place] 00 IVP, Drug Form: INJ, Dosing Weight 110.057, kg, PRN, PRN Blood Glucose Results, Start date: 07/03/22 19:37:00 CDT, Duration: 30 day, Stop date: 08/02/22 19:36:00 CDT, 0 glucagon 2021-10 No 1 mg, Memoria 0-04 Route: IM, l 00:37: Drug form: [place] 00 PDR/INJ, PRN, Dosing Weight 110.057, kg, PRN Blood Glucose Results, Start date: 07/03/22 19:37:00 CDT, Duration: 30 day, Stop date: 08/02/22 19:36:00 CDT, 0 insulin 2021-10 No Notes: Memoria lispro 0-04 (Same as: l 00:37: Humalog) [place] 00 Roll in palms of hands gently; Do not shake vigorously . WASTE: F/P - Black; E - Municipal Trash Bin Stable for 28 days at room temperatur e. Expires in days from ____Date amLODIPine 2021-10 No Notes: Memor ia 0-03 (Same as: l 14:00: Norvasc) [place] 00 nebivolol 2021-10 No Notes: Memori a 0-03 (same as: l 14:00: Bystolic) amLODIPine 2021-10 No Notes: Memor ia 0-03 (Same as: l 14:00: Norvasc) nebivolol 2021-10 No Notes: Memori a 0-03 (same as: l 14:00: Bystolic) rosuvastati 2021-10 No Notes: Scar estela n 0-03 (Same As: l 02:00: Crestor) rosuvastati 2021-10 No Notes: Scar estela n 0-03 (Same As: l 02:00: Crestor) hydrALAZINE 2021-10 No Notes: Scar estela 50 mg oral 0-02 (Same as: l tablet 22:00: Apresoline Myranda nn 00 ) May interfere w/enteral feedings Take With Food hydrALAZINE 2021-10 No Notes: Scar estela 50 mg oral 0-02 (Same as: l tablet 22:00: Apresoline Myranda nn 00 ) May interfere w/enteral feedings Take With Food Zosyn + 2021-10 No Notes: Memoria Sodium 0-02 (Same as: l Chloride 19:00: Zosyn) [place] 0.9% IV 100 00 Dosing mL based on Piperacill in component MEDICATION WASTE Product Size: 3375 mg Product Wasted: ___ mg Zosyn + 2021-10 No Notes: Memoria Sodium 0-02 (Same as: l Chloride 19:00: Zosyn) [place] 0.9% IV 100 00 Dosing mL based on Piperacill in component MEDICATION WASTE Product Size: 3375 mg Product Wasted: ___ mg potassium 2021-10 No /= 14 Memoria chloride 0-02 [place], l 17:13: january dissolve each 20 mEq tablet in 4 oz of water. Allow about 2 minutes for the tablets to disintegra te. Stir before giving to prepare slurry and administer . Please exclude patient's with feeding tube less than 14 [place] (Dobhoff, J-tube, etc) and pediatric and patients. potassium 2021-10 No /= 14 Memoria chloride 0-02 [place], l 17:13: january [place] 00 dissolve each 20 mEq tablet in 4 oz of water. Allow about 2 minutes for the tablets to disintegra te. Stir before giving to prepare slurry and administer . Please exclude patient's with feeding tube less than 14 [place] (Dobhoff, J-tube, etc) and pediatric and patients. hydrochloro 2021-10 Yes 1 tab, PO, Memoria thiazide-te 0-02 BID, 0 l lmisartan 16:03: Refill(s) Her mcfarlane 12.5 mg-80 00 mg oral tablet hydrochloro 2021-10 Yes 1 tab, PO, Memoria thiazide-te 0-02 BID, 0 l lmisartan 16:03: Refill(s) Her mcfarlane 12.5 mg-80 00 mg oral tablet Nebivolol 5 2021-10 Yes 5 mg = 1 Me moria mg oral 0-02 tab, PO, l tablet 13:44: Daily, 0 [place] 00 Refill(s) Nebivolol 5 2021-10 Yes 5 mg = 1 Me moria mg oral 0-02 tab, PO, l tablet 13:44: Daily, 0 [place] 00 Refill(s) rosuvastati 2021-10 Yes 5 mg = 1 Me moria n 5 mg oral 0-02 tab, PO, l tablet 13:43: Bedtime, # Myranda nn 00 30 tab, 0 Refill(s) Lunesta 3 2021-10 Yes 3 mg = 1 Scar estela mg oral 0-02 tab, PO, l tablet 13:43: Bedtime, [place] 00 PRN for insomnia, # 30 tab, 0 Refill(s) rosuvastati 2021-10 Yes 5 mg = 1 Me moria n 5 mg oral 0-02 tab, PO, l tablet 13:43: Bedtime, # Myranda nn 00 30 tab, 0 Refill(s) Lunesta 3 2021-10 Yes 3 mg = 1 Scar estela mg oral 0-02 tab, PO, l tablet 13:43: Bedtime, [place] 00 PRN for insomnia, # 30 tab, 0 Refill(s) metFORMIN 2021-10 Yes 500 mg = 1 Me moria 500 mg oral 0-02 tab, PO, l tablet 13:42: BID-Meals, Myranda nn 00 # 60 tab, 0 Refill(s) metFORMIN 2021-10 Yes 500 mg = 1 Me moria 500 mg oral 0-02 tab, PO, l tablet 13:42: BID-Meals, Myranda nn 00 # 60 tab, 0 Refill(s) doxycycline 2021-10 No 50 mg = 1 M emoria hyclate 50 0-02 cap, PO, l mg oral 13:39: Daily, 0 Hieu n capsule 00 Refill(s) doxycycline 2021-10 No 50 mg = 1 M emoria hyclate 50 0-02 cap, PO, l mg oral 13:39: Daily, 0 Hieu n capsule 00 Refill(s) amLODIPine 2021-10 Yes 5 mg = 1 Mem oria 5 mg oral 0-02 tab, PO, l tablet 13:38: Daily, # [place] 00 30 tab, 0 Refill(s) hydrALAZINE 2021-10 Yes 50 mg = 1 M emoria 50 mg oral 0-02 tab, PO, l tablet 13:38: BID, 0 [place] 00 Refill(s) amLODIPine 2021-10 Yes 5 mg = 1 Mem oria 5 mg oral 0-02 tab, PO, l tablet 13:38: Daily, # [place] 00 30 tab, 0 Refill(s) hydrALAZINE 2021-10 Yes 50 mg = 1 M emoria 50 mg oral 0-02 tab, PO, l tablet 13:38: BID, 0 [place] 00 Refill(s) influenza 2021-10 No Notes: Memori a virus 0-02 (Same as: l vaccine, 10:45: Fluzone Hieu n inactivated 34 High-Dose high-dose Quad) For preservativ 65 years e-free of age of intramuscul older (0.7 ar ml IM) suspension Shake well before use influenza 2021-10 No Notes: Memori a virus 0-02 (Same as: l vaccine, 10:45: Fluzone Hieu n inactivated 34 High-Dose high-dose Quad) For preservativ 65 years e-free of age of intramuscul older (0.7 ar ml IM) suspension Shake well before use Zosyn + 2021-10 No Notes: Memoria Sodium 0-02 (Same as: l Chloride 10:42: Zosyn) [place] 0.9% IV 100 00 Dosing mL based on Piperacill in component MEDICATION WASTE Product Size: 3375 mg Product Wasted: ___ mg Zosyn + 2021-10 No Notes: Memoria Sodium 0-02 (Same as: l Chloride 10:42: Zosyn) [place] 0.9% IV 100 00 Dosing mL based on Piperacill in component MEDICATION WASTE Product Size: 3375 mg Product Wasted: ___ mg Dextrose 2021-10 No 12.5 gm, Memor ia 50% Syringe 0-02 25 mL, l (D50W) 08:33: Route: [place] 00 IVP, Drug Form: INJ, kg, PRN, PRN Blood Glucose Results, Start date: 07/02/22 3:33:00 CDT, Duration: 30 day, Stop date: 08/01/22 3:32:00 CDT, 0 glucagon 2021-10 No 1 mg, Memoria 0-02 Route: IM, l 08:33: Drug form: [place] 00 PDR/INJ, PRN, kg, PRN Blood Glucose Results, Start date: 07/02/22 3:33:00 CDT, Duration: 30 day, Stop date: 08/01/22 3:32:00 CDT, 0 insulin 2021-10 No Notes: Memoria lispro 0-02 (Same as: l 08:33: Humalog) Roll in palms of hands gently; Do not shake vigorously . WASTE: F/P - Black; E - Municipal Trash Bin Stable for 28 days at room temperatur e. Expires in days from ____Date Dextrose 2021-10 No 12.5 gm, Memor ia 50% Syringe 0-02 25 mL, l (D50W) 08:33: Route: [place] 00 IVP, Drug Form: INJ, kg, PRN, PRN Blood Glucose Results, Start date: 07/02/22 3:33:00 CDT, Duration: 30 day, Stop date: 08/01/22 3:32:00 CDT, 0 glucagon 2021-10 No 1 mg, Memoria 0-02 Route: IM, l 08:33: Drug form: [place] 00 PDR/INJ, PRN, kg, PRN Blood Glucose Results, Start date: 07/02/22 3:33:00 CDT, Duration: 30 day, Stop date: 08/01/22 3:32:00 CDT, 0 insulin 2021-10 No Notes: Memoria lispro 0-02 (Same as: l 08:33: Humalog) [place] 00 Roll in palms of hands gently; Do not shake vigorously . WASTE: F/P - Black; E - Municipal Trash Bin Stable for 28 days at room temperatur e. Expires in days from ____Date trazodone 2021-10 No Notes: Memori a 0-02 (Same As: l 08:32: Desyrel) [place] 00 acetaminoph 2021-10 No Notes: Do M emoria en 0-02 not exceed l 08:32: 4 gm/day. [place] 00 (Same as: Tylenol) Robitussin 2021-10 No Notes: Memor ia 100 mg/5 mL 0-02 (Same as: l oral liquid 08:32: Robitussin [place] 00 ) Maalox 2021-10 No Notes: Memoria Advanced 0-02 (aluminum l Regular 08:32: hydroxide- Herm tangela Strength 00 magnesium SUSP hyd-simeth icone 200-200-20 mg/5ml 30 ml ud ABHISHEK) DuoNeb 2021-10 No Notes: Memoria inhalation 0-02 (Same as: l solution 08:32: Duoneb) Hieu n 00 Tylenol 2021-10 No Notes: Do Memor ia 0-02 not exceed l 08:32: 4 gm/day. [place] 00 (Same as: Tylenol) hydrALAZINE 2021-10 No Notes: Scar estela 0-02 (Same as: l 08:32: Apresoline [place] ) Push over 5 minutes trazodone 2021-10 No Notes: Memori a 0-02 (Same As: l 08:32: Desyrel) [place] 00 acetaminoph 2021-10 No Notes: Do M emoria en 0-02 not exceed l 08:32: 4 gm/day. [place] 00 (Same as: Tylenol) Robitussin 2021-10 No Notes: Memor ia 100 mg/5 mL 0-02 (Same as: l oral liquid 08:32: Robitussin [place] 00 ) Maalox 2021-10 No Notes: Memoria Advanced 0-02 (aluminum l Regular 08:32: hydroxide- Herm tangela Strength 00 magnesium SUSP hyd-simeth icone 200-200-20 mg/5ml 30 ml ud ABHISHEK) DuoNeb 2021-10 No Notes: Memoria inhalation 0-02 (Same as: l solution 08:32: Duoneb) Hieu n 00 Tylenol 2021-10 No Notes: Do Memor ia 0-02 not exceed l 08:32: 4 gm/day. [place] 00 (Same as: Tylenol) hydrALAZINE 2021-10 No Notes: Scar estela 0-02 (Same as: l 08:32: Apresoline [place] ) Push over 5 minutes ondansetron 2021-10 No Notes: Scar estela 0-02 (Same as: l 08:27: Zofran) [place] 00 MEDICATION WASTE Product Size: 4 mg Product Wasted: ___ mg Lactated 2021-10 No 1,000 mL, Scar estela Ringers IV 0-02 Rate: 100 l 1,000 mL 08:27: ml/hr, [place] 00 Infuse over: 10 hr, Route: IV, Total Volume: 1,000, Priority: STAT, Start date: 07/02/22 3:27:00 CDT, Duration: 30 day, Stop date: 08/01/22 3:26:00 CDT, BSA: 2.21 m2, 0 morphine 2021-10 No Notes: Memoria Sulfate 0-02 (Same l 08:27: as:MORPhin [place] 00 e Sulfate) ondansetron 2021-10 No Notes: Scar estela 0-02 (Same as: l 08:27: Zofran) [place] 00 MEDICATION WASTE Product Size: 4 mg Product Wasted: ___ mg Lactated 2021-10 No 1,000 mL, Scar estela Ringers IV 0-02 Rate: 100 l 1,000 mL 08:27: ml/hr, [place] 00 Infuse over: 10 hr, Route: IV, Total Volume: 1,000, Priority: STAT, Start date: 07/02/22 3:27:00 CDT, Duration: 30 day, Stop date: 08/01/22 3:26:00 CDT, BSA: 2.21 m2, 0 morphine 2021-10 No Notes: Memoria Sulfate 0-02 (Same l 08:27: as:MORPhin [place] 00 e Sulfate) Vital Signs Vital Name Observation Time Observation Value Comments Source Temperature Oral (F) 2022-07-19 15:22:00 97.3 F [facility] [place] Heart Rate 2022-07-19 15:22:00 [facility] [place] Systolic (mm Hg) 2022-07-19 15:22:00 Scar rial [place] Diastolic (mm Hg) 2022-07-19 15:22:00 Mem orial [place] Heart Rate 2022-07-04 12:49:26 [facility] [place] Respitory Rate 2022-07-04 12:49:26 Memori al [place] Systolic (mm Hg) 2022-07-04 12:49:03 Scar rial [place] Diastolic (mm Hg) 2022-07-04 12:49:03 Mem orial [place] Heart Rate 2022-07-04 12:49:03 [facility] [place] Temperature Oral (F) 2022-07-04 12:48:11 98.2 F [facility] [place] Heart Rate 2022-07-04 10:13:40 [facility] [place] Respitory Rate 2022-07-04 10:13:40 Memori al [place] Systolic (mm Hg) 2022-07-04 10:13:05 Scar rial [place] Diastolic (mm Hg) 2022-07-04 10:13:05 Mem orial [place] Temperature Oral (F) 2022-07-04 10:12:41 98.3 F [facility] [place] Respitory Rate 2022-07-04 04:26:25 Memori al [place] Temperature Oral (F) 2022-07-04 04:25:46 98.1 F [facility] [place] Systolic (mm Hg) 2022-07-04 04:25:32 Scar rial [place] Diastolic (mm Hg) 2022-07-04 04:25:32 Mem orial [place] Height 2022-07-03 01:16:00 182.88 cm [facility] [place] Weight 2022-07-03 01:16:00 [facility] [place] BMI Calculated 2022-07-03 01:16:00 Tarik Henriquezann Height 2022-07-02 10:30:00 182.88 cm [facility] [place] Weight 2022-07-02 10:30:00 [facility] [place] BMI Calculated 2022-07-02 10:30:00 Tarik Rubalcava Procedures Procedure Date / Time Performing Source Performed Clinician Endoscopic retrograde 2022-07-03 [facility] ermann cholangiopancreatography (ERCP); 01:35:00 with sphincterotomy/papillotomy Encounters Start End Encounter Admission Attending Care Care Encounter Source Date/Time Date/Time Type Type Clinicians Facility Department ID 2022-08-11 2022-08-11 Outpatient MARIA A [facility] [id number] [facility] 10:36:00 15:00:00 SEDAMIAN 2022-08-08 2022-08-08 Letter Provider, [facility] [id number] Univers 00:00:00 00:00:00 (Out) Ang Db HEALTH [id number] it y of Urgent [facility] [place] [id number] [place] LAINE?BLEA [id number] Nm dical [address] MEDICAL OFFICE [facility] 2022-08-05 2022-08-05 Outpatient Kole PANDYA [facility] [id number] Univers 09:30:00 09:51:[address] [facility] 2022-08-05 2022-08-05 Laboratory Only, Ang Db Test [facility] 1.2.8 [id number] Univers 09:30:00 09:45:00 Only Unknown, Attending HEALTH [id number] ity [facility] [id number] Juan Jose as LAINE?BLEA [id number] Nm dical [facility] [address] [place] MEDICAL OFFICE BUILDING 2022-07-20 2022-07-21 [facility] [id number] Memoria 18:37:48 18:37:48 Visit r Gastroenter 00 l ology [place] [address] 2022-07-20 2022-07-21 Between [facility] [id number] Memoria 18:37:48 18:37:48 Visit r Gastroenter 00 l ology [facility] 370 2022-07-20 2022-07-21 Outpatient [facility] [id number] 13:37:48 13:37:48 00 2022-07-19 2022-07-20 Outpatient nullFlavo [facility] [id number] Memoria 16:00:00 04:59:59 r Gastroenter 00 l oljimy [facility] 370 2022-07-19 2022-07-20 Outpatient nullFlavo [facility] [id number] Memoria 16:00:00 04:59:59 r Gastroenter 00 l ology [facility] 370 2022-07-19 2022-07-19 Outpatient Maria A [facility] [id number] 11:00:00 23:59:59 [place] 00 2022-07-19 2022-07-19 Outpatient [facility] [id number] Memoria 11:00:00 11:00:00 00 l [place] 2022-07-02 2022-07-04 Inpatient nullFlavo [facility] [id number] Memoria 07:46:00 18:20:00 r [place] 75 l [facility] 2022-07-02 2022-07-04 Inpatient nullFlavo [facility] [id number] Mem[place] 07:46:00 18:20:00 r [place] 75 [facility] 2022-07-02 2022-07-04 Inpatient [facility]275 [facility] 02:46:00 13:20:00 KAYE 2022-07-02 2022-07-04 Outpatient Prosper [facility] [id number] 02:46:00 13:20:00 Kaye Anais Telles 2022-07-02 2022-07-04 [facility] [id number] 02:46:00 13:20:00 Kaye Telles Results Test Description Test Time Test Comments Results Result Comments Source HEMATOLOGY 2022-07-19 16:28:00 Test Item Value Reference Range Interpretation Comme nts MCV (test code = MCV) 94.2 80.0-100.0 [facility] CenterXleykfvHYGIAKUPOH6587-50-75 16:28:00 Test Item Value Reference Range Interpretation Comments MCH (test code = MCH) 33.3 pg 27.0-33.0 [facility]AN8657[facility]-85 16:28:00 Test Item Value Reference Range Interpretation Comments MCHC (test code = MCHC) 35.3 32.0-36.0 [facility]UmzijeeWWFIOQZDYW5077-71-49 16:28:00 Test Item Value Reference Range Interpretation Comments RDW (test code = RDW) 11.5 11.0-15.0 [facility] CenterZfojsciJVRPXUUCIF5238-65-02 16:28:00 Test Item Value Reference Range Interpretation Comments Platelet (test code = Platelet) 189 140-400 [facility] CenterIushgdbSURCODNFCJ7891-99-43 16:28:00 Test Item Value Reference Range Interpretation Comments MPV (test code = MPV) 11.3 7.5-12.5 [facility] CenterWjxoksmVYJEXMMGJW6590-81-38 16:28:00 Test Item Value Reference Range Interpretation Comments Neutrophils # (test code = Neutrophils 4352 0836-8676 #) [facility] CenterKroxnleJCIXUMTUJI6060-15-60 16:28:00 Test Item Value Reference Range Interpretation Comments Lymphocytes # (test code = Lymphocytes 9940 119-9638 #) [facility] CenterShdinoyNLLCCIPLCU1865-41-08 16:28:00 Test Item Value Reference Range Interpretation Comments Monocytes # (test code = Monocytes #) 530 200-950 [facility] CenterRvwuzvsISZYFNVPEK7867-03-60 16:28:00 Test Item Value Reference Range Interpretation Comments Eosinophils # (test code = Eosinophils 143 15-500 #) [facility] CenterBumogmmRROCWYQXXU7741-72-02 16:28:00 Test Item Value Reference Range Interpretation Comments Basophils # (test code 48 See_Comment [Aut omated message] The = Basophils #) system which generated this result tra nsmitted reference range : <=200. The reference r seema was not used to int erpret this result as normal/abnormal . [facility] CenterFibakdePIIZTOBFUN8191-57-52 16:28:00 Test Item Value Reference Range Interpretation Comments Segs (test code = Segs) 64 [facility] CenterOtawxaqCTFCHZGUAK6776-93-65 16:28:00 Test Item Value Reference Range Interpretation Comments Lymphocytes (test code = Lymphocytes) 25.4 [facility] CenterZnnxlqlFCDHNZLYDX4311-91-20 16:28:00 Test Item Value Reference Range Interpretation Comments Monocytes (test code = Monocytes) 7.8 [facility] CenterWwrdftsIKRHHTRSCF2830-18-34 16:28:00 Test Item Value Reference Range Interpretation Comments Eosinophils (test code = Eosinophils) 2.1 [facility] CenterBtcnulmWNHAHAQUYV5694-75-39 16:28:00 Test Item Value Reference Range Interpretation Comments Basophils (test code = Basophils) 0.7 [facility]LixgrljMSWGIMDMS4755-79-92 16:28:00 Test Item Value Reference Range Interpretation Comments Total Protein (test code = Total 7.0 6.1-8.1 Protein) [facility]QggupshGEFMRQMES0773-17-04 16:28:00 Test Item Value Reference Range Interpretation Comments Albumin Lvl (test code = Albumin Lvl) 4.4 3.6-5.1 [facility] NortheastMqnestfZDOXOUTIN0502-86-21 16:28:00 Test Item Value Reference Range Interpretation Comments Globulin (test code = Globulin) 2.6 1.9-3.7 [facility] NortheastEjuifsfVFFKATJWY2386-05-96 16:28:00 Test Item Value Reference Range Interpretation Comments A/G Ratio (test code = A/G Ratio) 1.7 1.0-2.5 [facility] NortheastPmwyqdhZIUJKWLXR4866-03-97 16:28:00 Test Item Value Reference Range Interpretation Comments Bili Total (test code = Bili Total) 1.1 0.2-1.2 [facility] NortheastZgascqjAJOPOGMRC9030-81-37 16:28:00 Test Item Value Reference Range Interpretation Comments Bili Direct (test code = Bili Direct) 0.3 [facility] NortheastEmpatshRUXVYXUNW1870-37-56 16:28:00 Test Item Value Reference Range Interpretation Comments Bili Indirect (test code = Bili 0.8 0.2-1.2 Indirect) [facility] NortheastWwsjkwkZIWMHPXPL0333-78-14 16:28:00 Test Item Value Reference Range Interpretation Comments Alk Phos (test code = Alk Phos) 74 35-144 [facility] NortheastFpualpcDOYDHNAGQ9456-48-59 16:28:00 Test Item Value Reference Range Interpretation Comments ASPARTATE TRANSAMINASE (test code = 21 10-35 ASPARTATE TRANSAMINASE) [facility] NortheastNxkvtblBKBCAYUFU9949-65-96 16:28:00 Test Item Value Reference Range Interpretation Comments ALANINE AMINOTRANSFERASE (test code = 32 9-46 ALANINE AMINOTRANSFERASE) [facility] NortheastVldcwkuBKVEHPCRN0859-49-69 16:28:00 Test Item Value Reference Range Interpretation Comments Glucose Lvl (test code = Glucose Lvl) 120 65-99 [facility] NortheastQmfepwrHIPOFWZVH5695-11-52 16:28:00 Test Item Value Reference Range Interpretation Comments BUN (test code = BUN) 16 7-25 [facility] NortheastTmlhlxlECZFJLPVG3175-27-59 16:28:00 Test Item Value Reference Range Interpretation Comments Creatinine Lvl (test code = Creatinine 0.90 0.70-1.28 Lvl) [facility] NortheastUeotfbxSYGTXFYZS3966-16-71 16:28:00 Test Item Value Reference Range Interpretation Comments eGFR (test code = eGFR) 90 [facility] NortheastIxpgeisILKMIGELW8611-33-93 16:28:00 Test Item Value Reference Range Interpretation Comments B/C Ratio (test code = B/C NOT APPLICABLE 22 Ratio) [facility] NortheastUbycanpJTPWHQOQV6292-81-76 16:28:00 Test Item Value Reference Range Interpretation Comments Sodium Lvl (test code = Sodium Lvl) 141 135-146 [facility] NortheastJtaofijWTIZMJYRU3256-85-13 16:28:00 Test Item Value Reference Range Interpretation Comments Potassium Lvl (test code = Potassium 3.9 3.5-5.3 Lvl) [facility] NortheastUyrxlvjXYJPJANZW3301-80-53 16:28:00 Test Item Value Reference Range Interpretation Comments Chloride Lvl (test code = Chloride Lvl) 103 98-110 [facility] NortheastUhyiobsVKAJAQDTP7469-12-67 16:28:00 Test Item Value Reference Range Interpretation Comments CO2 (test code = CO2) 28 20-32 [facility] NortheastHgcbhfnVZCVKXETB9280-88-58 16:28:00 Test Item Value Reference Range Interpretation Comments Calcium Lvl (test code = Calcium Lvl) 9.9 8.6-10.3 [facility] CenterVcqsqcoDZHRUGSFCN0675-36-22 16:28:00 Test Item Value Reference Range Interpretation Comments WBC X 10x3 (test code = WBC X 10x3) 6.8 3.8-10.8 [facility] CenterIgzcrxfTLTWUVEBHD9746-85-09 16:28:00 Test Item Value Reference Range Interpretation Comments RBC X 10x6 (test code = RBC X 10x6) 4.33 4.20-5.80 [place] 204382-10-19 16:28:00 Test Item Value Reference Range Interpretation Comments Hgb (test code = Hgb) 14.4 13.2-17.1 [facility] CenterHbtkdsfCJVWNCAYOZ7357-17-48 16:28:00 Test Item Value Reference Range Interpretation Comments Hct (test code = Hct) 40.8 38.5-50.0 [facility] CenterSdeyjvsRNIHFEKJXH5440-26-99 16:28:00 Test Item Value Reference Range Interpretation Comments MCHC (test code = MCHC) 35.3 32.0-36.0 [facility] CenterStblbohKCLQEJFHQK1934-57-80 16:28:00 Test Item Value Reference Range Interpretation Comments RDW (test code = RDW) 11.5 11.0-15.0 [facility] CenterEthctbbXLOONOEDUJ3492-84-56 16:28:00 Test Item Value Reference Range Interpretation Comments Platelet (test code = Platelet) 189 140-400 [facility] CenterCjlshjjZUUQBLZTIT5044-90-90 16:28:00 Test Item Value Reference Range Interpretation Comments MPV (test code = MPV) 11.3 7.5-12.5 [facility] CenterTafjuryZZAVTJLUND7658-97-46 16:28:00 Test Item Value Reference Range Interpretation Comments Neutrophils # (test code = Neutrophils 4352 4821-6573 #) [facility] CenterEyptextUMKFTNYFLH1689-02-60 16:28:00 Test Item Value Reference Range Interpretation Comments Lymphocytes # (test code = Lymphocytes 4902 008-6333 #) [facility] CenterCjbvxcdNPVSTFUSUA9781-31-77 16:28:00 Test Item Value Reference Range Interpretation Comments Monocytes # (test code = Monocytes #) 530 200-950 [facility] CenterXmwdmvfJURNHASCYW5131-82-40 16:28:00 Test Item Value Reference Range Interpretation Comments Eosinophils # (test code = Eosinophils 143 15-500 #) [facility] CenterUyzosvwSUICJWVPMR7290-07-96 16:28:00 Test Item Value Reference Range Interpretation Comments Basophils # (test code 48 See_Comment [Aut omated message] The = Basophils #) system which generated this result tra nsmitted reference range : <=200. The reference r seema was not used to int erpret this result as normal/abnormal . [facility] CenterZypnfudRXMCKDKCER0587-38-91 16:28:00 Test Item Value Reference Range Interpretation Comments Segs (test code = Segs) 64 [facility] CenterPnefajcPRLLYXOGMD1262-57-69 16:28:00 Test Item Value Reference Range Interpretation Comments Lymphocytes (test code = Lymphocytes) 25.4 [facility] CenterHsgmyfwLSSKOEPJZI0325-55-10 16:28:00 Test Item Value Reference Range Interpretation Comments Monocytes (test code = Monocytes) 7.8 [facility] CenterLlrbaylJESEZDRLSS3089-45-59 16:28:00 Test Item Value Reference Range Interpretation Comments Eosinophils (test code = Eosinophils) 2.1 [facility] CenterNzhtfcpGPKWMOUUSA8803-11-75 16:28:00 Test Item Value Reference Range Interpretation Comments Basophils (test code = Basophils) 0.7 [facility] NortheastSshcqcdWOBVIAEFL7230-67-87 16:28:00 Test Item Value Reference Range Interpretation Comments Total Protein (test code = Total 7.0 6.1-8.1 Protein) [facility] NortheastGupejczXXCPANDAW1130-34-39 16:28:00 Test Item Value Reference Range Interpretation Comments Albumin Lvl (test code = Albumin Lvl) 4.4 3.6-5.1 [facility] NortheastYkjhzvvGMSAGRGHO9666-88-60 16:28:00 Test Item Value Reference Range Interpretation Comments Globulin (test code = Globulin) 2.6 1.9-3.7 [facility] NortheastQustogwRRCYKFDFP7940-87-41 16:28:00 Test Item Value Reference Range Interpretation Comments A/G Ratio (test code = A/G Ratio) 1.7 1.0-2.5 [facility] NortheastFygwfqqRFBXDWQFK0489-16-47 16:28:00 Test Item Value Reference Range Interpretation Comments Bili Total (test code = Bili Total) 1.1 0.2-1.2 [facility] NortheastCqetvpxPNBWMDUAS8311-63-19 16:28:00 Test Item Value Reference Range Interpretation Comments Bili Direct (test code = Bili Direct) 0.3 [facility] NortheastRgvjqhjJUEQHZZWZ3085-90-33 16:28:00 Test Item Value Reference Range Interpretation Comments Bili Indirect (test code = Bili 0.8 0.2-1.2 Indirect) [facility] NortheastDdfbwlvYKHOJTGJK7321-13-35 16:28:00 Test Item Value Reference Range Interpretation Comments Alk Phos (test code = Alk Phos) 74 35-144 [facility] NortheastPiagcpvGQWBDHRBL2840-57-04 16:28:00 Test Item Value Reference Range Interpretation Comments ASPARTATE TRANSAMINASE (test code = 21 10-35 ASPARTATE TRANSAMINASE) [facility] NortheastHaflqfgLZNSMGJNX7226-79-59 16:28:00 Test Item Value Reference Range Interpretation Comments ALANINE AMINOTRANSFERASE (test code = 32 9-46 ALANINE AMINOTRANSFERASE) [facility] NortheastHejdiodBNKTVDUVY6186-26-89 16:28:00 Test Item Value Reference Range Interpretation Comments Glucose Lvl (test code = Glucose Lvl) 120 65-99 [place] 942012-10-19 16:28:00 Test Item Value Reference Range Interpretation Comments BUN (test code = BUN) 16 7-25 [facility] NortheastCkxnclhGOXTMNEHR2039-71-80 16:28:00 Test Item Value Reference Range Interpretation Comments Creatinine Lvl (test code = Creatinine 0.90 0.70-1.28 Lvl) [facility] NortheastOrwrywjDBXXJLIMO8833-21-63 16:28:00 Test Item Value Reference Range Interpretation Comments eGFR (test code = eGFR) 90 [facility] NortheastYxyipylUURMPINRT3868-23-94 16:28:00 Test Item Value Reference Range Interpretation Comments B/C Ratio (test code = B/C NOT APPLICABLE 03-22 Ratio) [facility] NortheastSqgdbppZXHEJWCUL5966-78-99 16:28:00 Test Item Value Reference Range Interpretation Comments Sodium Lvl (test code = Sodium Lvl) 141 135-146 [facility] NortheastMjarpiuQEAASKRMZ3858-53-40 16:28:00 Test Item Value Reference Range Interpretation Comments Potassium Lvl (test code = Potassium 3.9 3.5-5.3 Lvl) [facility] NortheastNtargbzWLCUAEVVN4690-32-99 16:28:00 Test Item Value Reference Range Interpretation Comments Chloride Lvl (test code = Chloride Lvl) 103 98-110 [facility] NortheastUcewdjhFRUIJAZCI6193-20-71 16:28:00 Test Item Value Reference Range Interpretation Comments CO2 (test code = CO2) 28 20-32 [facility] NortheastTmgedhvPQWFTIERN4315-13-49 16:28:00 Test Item Value Reference Range Interpretation Comments Calcium Lvl (test code = Calcium Lvl) 9.9 8.6-10.3 [facility] CenterTbwueqyUHUMOTMJHW3752-24-50 16:28:00 Test Item Value Reference Range Interpretation Comments WBC X 10x3 (test code = WBC X 10x3) 6.8 3.8-10.8 [facility] CenterAbqmaaoCLCERPLKZE8725-00-70 16:28:00 Test Item Value Reference Range Interpretation Comments RBC X 10x6 (test code = RBC X 10x6) 4.33 4.20-5.80 [place] 204382-10-19 16:28:00 Test Item Value Reference Range Interpretation Comments Hgb (test code = Hgb) 14.4 13.2-17.1 [place] 204382-10-19 16:28:00 Test Item Value Reference Range Interpretation Comments Hct (test code = Hct) 40.8 38.5-50.0 [place] 204382-10-19 16:28:00 Test Item Value Reference Range Interpretation Comments MCV (test code = MCV) 94.2 80.0-100.0 [place] 204382-10-19 16:28:00 Test Item Value Reference Range Interpretation Comments MCH (test code = MCH) 33.3 pg 27.0-33.0 [facility]2022-10-04 10:21:00 Test Item Value Reference Range Interpretation Comments A/G Ratio (test code = A/G Ratio) 0.8 1 0.7-1.6 [place] 564982-10-04 10:21:00 Test Item Value Reference Range Interpretation Comments eGFR (test code = eGFR) 97 [facility] CenterPnbijicLVSEKMJNFM0185-70-00 10:21:00 Test Item Value Reference Range Interpretation Comments Segs (test code = Segs) 65.2 45.0-75.0 [place] 204382-10-04 10:21:00 Test Item Value Reference Range Interpretation Comments Lymphocytes (test code = Lymphocytes) 23.3 20.0-40.0 [facility] CenterIfrooavJGOAEAUKRS0095-92-91 10:21:00 Test Item Value Reference Range Interpretation Comments Monocytes (test code = Monocytes) 8.0 2.0-12.0 [place] 204382-10-04 10:21:00 Test Item Value Reference Range Interpretation Comments Eosinophils (test code = 3.1 See_Comment [A utomated message] The Eosinophils) system which ge nerated this result tra nsmitted reference range : <=4.0. The reference r seema was not used to int erpret this result as normal/abnormal . [facility] CenterIfdcuhcLCDHYBBHMA7106-89-94 10:21:00 Test Item Value Reference Range Interpretation Comments Basophils (test code = 0.4 See_Comment [Aut omated message] The Basophils) system which ge nerated this result tra nsmitted reference range : <=1.0. The reference r seema was not used to int erpret this result as normal/abnormal . [facility] CenterXudlibsLBJTIHNYNQ2586-84-67 10:21:00 Test Item Value Reference Range Interpretation Comments Neutrophils # (test code = Neutrophils 4.1 1.5-8.1 #) [facility] CenterAzbmsfiJZZZMULHAB1263-48-08 10:21:00 Test Item Value Reference Range Interpretation Comments Lymphocytes # (test code = Lymphocytes 1.5 1.0-5.5 #) [facility] CenterFtfolidTOUTVLMMJR2388-44-14 10:21:00 Test Item Value Reference Range Interpretation Comments Monocytes # (test code 0.5 See_Comment [Aut omated message] The = Monocytes #) system which generated this result tra nsmitted reference range : <=0.8. The reference r seema was not used to int erpret this result as normal/abnormal . [facility] CenterNsmauqnTWSAMWZHCS4853-76-20 10:21:00 Test Item Value Reference Range Interpretation Comments Eosinophils # (test code 0.2 See_Comment [A utomated message] The = Eosinophils #) system whic h generated this result tra nsmitted reference range : <=0.5. The reference r seema was not used to int erpret this result as normal/abnormal . [facility] CenterMhafjyhFYBRKPXANV4981-92-92 10:21:00 Test Item Value Reference Range Interpretation Comments WBC X 10x3 (test code = WBC X 10x3) 6.3 3.7-10.4 [facility] CenterUpmofxmJKMCPIHOGB2093-03-35 10:21:00 Test Item Value Reference Range Interpretation Comments RBC X 10x6 (test code = RBC X 10x6) 3.51 4.70-6.10 [facility] CenterCityuzrFUTEHVDFWG5749-18-34 10:21:00 Test Item Value Reference Range Interpretation Comments Hgb (test code = Hgb) 12.2 14.0-18.0 [facility] CenterExbajjcJJLXPXWOAG1282-26-46 10:21:00 Test Item Value Reference Range Interpretation Comments Hct (test code = Hct) 34.3 42.0-54.0 [facility] CenterDdjviliJZOOYILQYM2848-11-81 10:21:00 Test Item Value Reference Range Interpretation Comments MCV (test code = MCV) 97.7 80.0-94.0 [facility] CenterFagxadfZUCFOGXWZP0975-43-25 10:21:00 Test Item Value Reference Range Interpretation Comments MCH (test code = MCH) 34.7 pg 27.0-31.0 [place] 204382-10-04 10:21:00 Test Item Value Reference Range Interpretation Comments MCHC (test code = MCHC) 35.5 32.0-36.0 [facility] CenterPlzropeCYXSNSRHDC5533-82-09 10:21:00 Test Item Value Reference Range Interpretation Comments RDW (test code = RDW) 12.3 11.5-14.5 [facility] CenterTzqwxzuOUCBIHDMAW7338-68-53 10:21:00 Test Item Value Reference Range Interpretation Comments Platelet (test code = Platelet) 117 133-450 [place] 204382-10-04 10:21:00 Test Item Value Reference Range Interpretation Comments MPV (test code = MPV) 9.0 7.4-10.4 [facility]2022-10-04 10:21:00 Test Item Value Reference Range Interpretation Comments Glucose Lvl (test code = Glucose Lvl) 94 70-99 [facility]2022-10-04 10:21:00 Test Item Value Reference Range Interpretation Comments BUN (test code = BUN) 8 7-22 [facility]2022-10-04 10:21:00 Test Item Value Reference Range Interpretation Comments Creatinine Lvl (test code = Creatinine 0.70 0.50-1.40 Lvl) [facility]2022-10-04 10:21:00 Test Item Value Reference Range Interpretation Comments Sodium Lvl (test code = Sodium Lvl) 144 135-145 [facility]2022-10-04 10:21:00 Test Item Value Reference Range Interpretation Comments Potassium Lvl (test code = Potassium 3.4 3.5-5.1 Lvl) [facility]2022-10-04 10:21:00 Test Item Value Reference Range Interpretation Comments Chloride Lvl (test code = Chloride Lvl) 110 95-109 [facility]2022-10-04 10:21:00 Test Item Value Reference Range Interpretation Comments CO2 (test code = CO2) 24 24-32 [facility]2022-10-04 10:21:00 Test Item Value Reference Range Interpretation Comments Calcium Lvl (test code = Calcium Lvl) 8.5 8.5-10.5 [facility]2022-10-04 10:21:00 Test Item Value Reference Range Interpretation Comments Total Protein (test code = Total 5.9 6.4-8.4 Protein) [place] 564982-10-04 10:21:00 Test Item Value Reference Range Interpretation Comments Albumin Lvl (test code = Albumin Lvl) 2.7 3.5-5.0 [place] 564982-10-04 10:21:00 Test Item Value Reference Range Interpretation Comments ALT (test code = ALT) 384 See_Comment [Auto mated message] The system which ge nerated this result transmit niall reference range : <=65. The reference range was not used to interpr et this result as isabella l/abnormal. [place] 564982-10-04 10:21:00 Test Item Value Reference Range Interpretation Comments AST (test code = AST) 148 See_Comment [Auto mated message] The system which ge nerated this result transmit niall reference range : <=37. The reference range was not used to interpr et this result as isabella l/abnormal. [place] 564982-10-04 10:21:00 Test Item Value Reference Range Interpretation Comments Alk Phos (test code = Alk Phos) 169 39-136 [place] 564982-10-04 10:21:00 Test Item Value Reference Range Interpretation Comments Bili Total (test code = Bili Total) 1.7 0.2-1.3 [place] 564982-10-04 10:21:00 Test Item Value Reference Range Interpretation Comments AGAP (test code = AGAP) 13.4 10.0-20.0 [place] 564982-10-04 10:21:00 Test Item Value Reference Range Interpretation Comments B/C Ratio (test code = B/C Ratio) 11 1 6-25 [place] [address]-10-04 10:21:00 Test Item Value Reference Range Interpretation Comments Globulin (test code = Globulin) 3.2 2.7-4.2 [place] 564982-10-04 10:21:00 Test Item Value Reference Range Interpretation Comments A/G Ratio (test code = A/G Ratio) 0.8 1 0.7-1.6 [place] [address]-10-04 10:21:00 Test Item Value Reference Range Interpretation Comments eGFR (test code = eGFR) 97 [facility] CenterFwhbcbeBGUBZCNWVD7654-30-11 10:21:00 Test Item Value Reference Range Interpretation Comments Segs (test code = Segs) 65.2 45.0-75.0 [place] [address]-10-04 10:21:00 Test Item Value Reference Range Interpretation Comments Lymphocytes (test code = Lymphocytes) 23.3 20.0-40.0 [place] [address]-10-04 10:21:00 Test Item Value Reference Range Interpretation Comments Monocytes (test code = Monocytes) 8.0 2.0-12.0 [place] [address]-10-04 10:21:00 Test Item Value Reference Range Interpretation Comments Eosinophils (test code = 3.1 See_Comment [A utomated message] The Eosinophils) system which ge nerated this result tra nsmitted reference range : <=4.0. The reference r seema was not used to int erpret this result as normal/abnormal . [place] [address]-10-04 10:21:00 Test Item Value Reference Range Interpretation Comments Basophils (test code = 0.4 See_Comment [Aut omated message] The Basophils) system which ge nerated this result tra nsmitted reference range : <=1.0. The reference r seema was not used to int erpret this result as normal/abnormal . [facility] CenterMsysgajKUUDRYFFOL1682-72-75 10:21:00 Test Item Value Reference Range Interpretation Comments Neutrophils # (test code = Neutrophils 4.1 1.5-8.1 #) [place] [address]-10-04 10:21:00 Test Item Value Reference Range Interpretation Comments Lymphocytes # (test code = Lymphocytes 1.5 1.0-5.5 #) [place] [address]-10-04 10:21:00 Test Item Value Reference Range Interpretation Comments Monocytes # (test code 0.5 See_Comment [Aut omated message] The = Monocytes #) system which generated this result tra nsmitted reference range : <=0.8. The reference r seema was not used to int erpret this result as normal/abnormal . [place] [address]-10-04 10:21:00 Test Item Value Reference Range Interpretation Comments Eosinophils # (test code 0.2 See_Comment [A utomated message] The = Eosinophils #) system wh h generated this result tra nsmitted reference range : <=0.5. The reference r seema was not used to int erpret this result as normal/abnormal . [facility]LreexueNYJFDUQUOW9697-65-25 10:21:00 Test Item Value Reference Range Interpretation Comments WBC X 10x3 (test code = WBC X 10x3) 6.3 3.7-10.4 [place] 204382-10-04 10:21:00 Test Item Value Reference Range Interpretation Comments RBC X 10x6 (test code = RBC X 10x6) 3.51 4.70-6.10 [facility] CenterIqiwcjzYQGGPZNRSD5678-60-40 10:21:00 Test Item Value Reference Range Interpretation Comments Hgb (test code = Hgb) 12.2 14.0-18.0 [place] [address]-10-04 10:21:00 Test Item Value Reference Range Interpretation Comments Hct (test code = Hct) 34.3 42.0-54.0 [place] [address]-10-04 10:21:00 Test Item Value Reference Range Interpretation Comments MCV (test code = MCV) 97.7 80.0-94.0 [place] 204382-10-04 10:21:00 Test Item Value Reference Range Interpretation Comments MCH (test code = MCH) 34.7 pg 27.0-31.0 [facility] CenterDyqdtwtKVYPEKEGTN5079-65-29 10:21:00 Test Item Value Reference Range Interpretation Comments MCHC (test code = MCHC) 35.5 32.0-36.0 [place] [address]-10-04 10:21:00 Test Item Value Reference Range Interpretation Comments RDW (test code = RDW) 12.3 11.5-14.5 [place] 204382-10-04 10:21:00 Test Item Value Reference Range Interpretation Comments Platelet (test code = Platelet) 117 133-450 [facility] CenterFlagbpxVEYCXPHQZX5199-20-91 10:21:00 Test Item Value Reference Range Interpretation Comments MPV (test code = MPV) 9.0 7.4-10.4 [facility]2022-10-04 10:21:00 Test Item Value Reference Range Interpretation Comments Glucose Lvl (test code = Glucose Lvl) 94 70-99 [facility]2022-10-04 10:21:00 Test Item Value Reference Range Interpretation Comments BUN (test code = BUN) 8 7-22 [place] 564982-10-04 10:21:00 Test Item Value Reference Range Interpretation Comments Creatinine Lvl (test code = Creatinine 0.70 0.50-1.40 Lvl) [facility]2022-10-04 10:21:00 Test Item Value Reference Range Interpretation Comments Sodium Lvl (test code = Sodium Lvl) 144 135-145 [place] 564982-10-04 10:21:00 Test Item Value Reference Range Interpretation Comments Potassium Lvl (test code = Potassium 3.4 3.5-5.1 Lvl) [place] 564982-10-04 10:21:00 Test Item Value Reference Range Interpretation Comments Chloride Lvl (test code = Chloride Lvl) 110 95-109 [place] 564982-10-04 10:21:00 Test Item Value Reference Range Interpretation Comments CO2 (test code = CO2) 24 24-32 [place] 564982-10-04 10:21:00 Test Item Value Reference Range Interpretation Comments Calcium Lvl (test code = Calcium Lvl) 8.5 8.5-10.5 [place] 564982-10-04 10:21:00 Test Item Value Reference Range Interpretation Comments Total Protein (test code = Total 5.9 6.4-8.4 Protein) [facility]2022-10-04 10:21:00 Test Item Value Reference Range Interpretation Comments Albumin Lvl (test code = Albumin Lvl) 2.7 3.5-5.0 [place] 564982-10-04 10:21:00 Test Item Value Reference Range Interpretation Comments ALT (test code = ALT) 384 See_Comment [Auto mated message] The system which ge nerated this result transmit niall reference range : <=65. The reference range was not used to interpr et this result as isabella l/abnormal. [facility]2022-10-04 10:21:00 Test Item Value Reference Range Interpretation Comments AST (test code = AST) 148 See_Comment [Auto mated message] The system which ge nerated this result transmit niall reference range : <=37. The reference range was not used to interpr et this result as isabella l/abnormal. [email or web address] [id number] 10:21:00 Test Item Value Reference Range Interpretation Comments Alk Phos (test code = Alk Phos) 169 39-136 [facility]2022-10-04 10:21:00 Test Item Value Reference Range Interpretation Comments Bili Total (test code = Bili Total) 1.7 0.2-1.3 [facility]2022-10-04 10:21:00 Test Item Value Reference Range Interpretation Comments AGAP (test code = AGAP) 13.4 10.0-20.0 [facility]2022-10-04 10:21:00 Test Item Value Reference Range Interpretation Comments B/C Ratio (test code = B/C Ratio) 11 1 6-25 [facility]2022-10-04 10:21:00 Test Item Value Reference Range Interpretation Comments Globulin (test code = Globulin) 3.2 2.7-4.2 [facility]37 11:37:00 Test Item Value Reference Range Interpretation Comments Coronavirus (COVID-19) Not Detected (07/03/22 RICK (test code = 6:37 AM) Coronavirus (COVID-19) RICK) [place] [address]-10-03 11:37:00 Test Item Value Reference Range Interpretation Comments Coronavirus (COVID-19) Not Detected (07/03/22 RICK (test code = 6:37 AM) Coronavirus (COVID-19) RICK) [facility]2022-10-03 09:14:00 Test Item Value Reference Range Interpretation Comments Glucose Lvl (test code = Glucose Lvl) 118 70-99 [facility]2022-10-03 09:14:00 Test Item Value Reference Range Interpretation Comments BUN (test code = BUN) 9 7-22 [facility]2022-10-03 09:14:00 Test Item Value Reference Range Interpretation Comments Creatinine Lvl (test code = Creatinine 0.80 0.50-1.40 Lvl) [facility]2022-10-03 09:14:00 Test Item Value Reference Range Interpretation Comments Sodium Lvl (test code = Sodium Lvl) 143 135-145 [facility]2022-10-03 09:14:00 Test Item Value Reference Range Interpretation Comments Potassium Lvl (test code = Potassium 3.7 3.5-5.1 Lvl) [place] 564982-10-03 09:14:00 Test Item Value Reference Range Interpretation Comments Chloride Lvl (test code = Chloride Lvl) 109 95-109 [place] 564982-10-03 09:14:00 Test Item Value Reference Range Interpretation Comments CO2 (test code = CO2) 27 24-32 [place] 564982-10-03 09:14:00 Test Item Value Reference Range Interpretation Comments Calcium Lvl (test code = Calcium Lvl) 9.1 8.5-10.5 [place] [address]-10-03 09:14:00 Test Item Value Reference Range Interpretation Comments Total Protein (test code = Total 6.2 6.4-8.4 Protein) [place] [address]-10-03 09:14:00 Test Item Value Reference Range Interpretation Comments Albumin Lvl (test code = Albumin Lvl) 2.9 3.5-5.0 [place] 564982-10-03 09:14:00 Test Item Value Reference Range Interpretation Comments ALT (test code = ALT) 407 See_Comment [Auto mated message] The system which ge nerated this result transmit niall reference range : <=65. The reference range was not used to interpr et this result as isabella l/abnormal. [place] 564982-10-03 09:14:00 Test Item Value Reference Range Interpretation Comments AST (test code = AST) 170 See_Comment [Auto mated message] The system which ge nerated this result transmit niall reference range : <=37. The reference range was not used to interpr et this result as isabella l/abnormal. [place] 564982-10-03 09:14:00 Test Item Value Reference Range Interpretation Comments Alk Phos (test code = Alk Phos) 200 39-136 [place] [address]-10-03 09:14:00 Test Item Value Reference Range Interpretation Comments Bili Total (test code = Bili Total) 3.4 0.2-1.3 [place] [address]-10-03 09:14:00 Test Item Value Reference Range Interpretation Comments AGAP (test code = AGAP) 10.7 10.0-20.0 [place] [address]-10-03 09:14:00 Test Item Value Reference Range Interpretation Comments B/C Ratio (test code = B/C Ratio) 11 1 6-[address]10-03 09:14:00 Test Item Value Reference Range Interpretation Comments Globulin (test code = Globulin) 3.3 2.7-4.[address]10-03 09:14:00 Test Item Value Reference Range Interpretation Comments A/G Ratio (test code = A/G Ratio) 0.9 1 0.7-1.6 [address]10-03 09:14:00 Test Item Value Reference Range Interpretation Comments eGFR (test code = eGFR) [address]10-03 09:14:00 Test Item Value Reference Range Interpretation Comments Segs (test code = Segs) 71.2 45.0-75.0 [address]10-03 09:14:00 Test Item Value Reference Range Interpretation Comments Lymphocytes (test code = Lymphocytes) 17.6 20.0-40.0 [address]10-03 09:14:00 Test Item Value Reference Range Interpretation Comments Monocytes (test code = Monocytes) 9.0 2.0-12.0 [address]10-03 09:14:00 Test Item Value Reference Range Interpretation Comments Eosinophils (test code = 1.8 See_Comment [A utomated message] The Eosinophils) system which ge nerated this result tra nsmitted reference range : <=4.0. The reference r seema was not used to int erpret this result as normal/abnormal . [place] [address]-10-03 09:14:00 Test Item Value Reference Range Interpretation Comments Basophils (test code = 0.4 See_Comment [Aut omated message] The Basophils) system which ge nerated this result tra nsmitted reference range : <=1.0. The reference r seema was not used to int erpret this result as normal/abnormal . [place] [address]-10-03 09:14:00 Test Item Value Reference Range Interpretation Comments Neutrophils # (test code = Neutrophils 4.8 1.5-8.1 #) [address]10-03 09:14:00 Test Item Value Reference Range Interpretation Comments Lymphocytes # (test code = Lymphocytes 1.2 1.0-5.5 #) [facility] CenterHghqnrkNZLKJYWTZB8172-79-81 09:14:00 Test Item Value Reference Range Interpretation Comments Monocytes # (test code 0.6 See_Comment [Aut omated message] The = Monocytes #) system which generated this result tra nsmitted reference range : <=0.8. The reference r seema was not used to int erpret this result as normal/abnormal . [place] 204382-10-03 09:14:00 Test Item Value Reference Range Interpretation Comments Eosinophils # (test code 0.1 See_Comment [A utomated message] The = Eosinophils #) system whic h generated this result tra nsmitted reference range : <=0.5. The reference r seema was not used to int erpret this result as normal/abnormal . [place] 204382-10-03 09:14:00 Test Item Value Reference Range Interpretation Comments WBC X 10x3 (test code = WBC X 10x3) 6.7 3.7-10.4 [place] 204382-10-03 09:14:00 Test Item Value Reference Range Interpretation Comments RBC X 10x6 (test code = RBC X 10x6) 3.65 4.70-6.10 [place] [address]-10-03 09:14:00 Test Item Value Reference Range Interpretation Comments Hgb (test code = Hgb) 12.5 14.0-18.0 [place] [address]-10-03 09:14:00 Test Item Value Reference Range Interpretation Comments Hct (test code = Hct) 35.5 42.0-54.0 [place] [address]-10-03 09:14:00 Test Item Value Reference Range Interpretation Comments MCV (test code = MCV) 97.2 80.0-94.0 [place] [address]-10-03 09:14:00 Test Item Value Reference Range Interpretation Comments MCH (test code = MCH) 34.2 pg 27.0-31.0 [place] 204382-10-03 09:14:00 Test Item Value Reference Range Interpretation Comments MCHC (test code = MCHC) 35.2 32.0-36.0 [place] [address]-10-03 09:14:00 Test Item Value Reference Range Interpretation Comments RDW (test code = RDW) 12.9 11.5-14.5 [place] [address]-10-03 09:14:00 Test Item Value Reference Range Interpretation Comments Platelet (test code = Platelet) 118 133-450 [place] 204382-10-03 09:14:00 Test Item Value Reference Range Interpretation Comments MPV (test code = MPV) 9.5 7.4-10.4 [place] [address]-10-03 09:14:00 Test Item Value Reference Range Interpretation Comments Hgb A1C (test code = Hgb A1C) 5.6 [place] [address]-10-03 09:14:00 Test Item Value Reference Range Interpretation Comments Hgb A1C (test code = Hgb A1C) 5.8 [place] 564982-10-03 09:14:00 Test Item Value Reference Range Interpretation Comments Glucose Lvl (test code = Glucose Lvl) 118 70-99 [place] 564982-10-03 09:14:00 Test Item Value Reference Range Interpretation Comments BUN (test code = BUN) 9 7-22 [place] 564982-10-03 09:14:00 Test Item Value Reference Range Interpretation Comments Creatinine Lvl (test code = Creatinine 0.80 0.50-1.40 Lvl) [facility]2022-10-03 09:14:00 Test Item Value Reference Range Interpretation Comments Sodium Lvl (test code = Sodium Lvl) 143 135-145 [place] 564982-10-03 09:14:00 Test Item Value Reference Range Interpretation Comments Potassium Lvl (test code = Potassium 3.7 3.5-5.1 Lvl) [place] 564982-10-03 09:14:00 Test Item Value Reference Range Interpretation Comments Chloride Lvl (test code = Chloride Lvl) 109 95-109 [place] 564982-10-03 09:14:00 Test Item Value Reference Range Interpretation Comments CO2 (test code = CO2) 27 24-32 [place] 564982-10-03 09:14:00 Test Item Value Reference Range Interpretation Comments Calcium Lvl (test code = Calcium Lvl) 9.1 8.5-10.5 [place] 564982-10-03 09:14:00 Test Item Value Reference Range Interpretation Comments Total Protein (test code = Total 6.2 6.4-8.4 Protein) [place] 564982-10-03 09:14:00 Test Item Value Reference Range Interpretation Comments Albumin Lvl (test code = Albumin Lvl) 2.9 3.5-5.0 [place] 564982-10-03 09:14:00 Test Item Value Reference Range Interpretation Comments ALT (test code = ALT) 407 See_Comment [Auto mated message] The system which ge nerated this result transmit niall reference range : <=65. The reference range was not used to interpr et this result as isabella l/abnormal. [place] 564982-10-03 09:14:00 Test Item Value Reference Range Interpretation Comments AST (test code = AST) 170 See_Comment [Auto mated message] The system which ge nerated this result transmit niall reference range : <=37. The reference range was not used to interpr et this result as isabella l/abnormal. [facility]2022-10-03 09:14:00 Test Item Value Reference Range Interpretation Comments Alk Phos (test code = Alk Phos) 200 39-136 [email or web address] [id number] 09:14:00 Test Item Value Reference Range Interpretation Comments Bili Total (test code = Bili Total) 3.4 0.2-1.3 [place] 564982-10-03 09:14:00 Test Item Value Reference Range Interpretation Comments AGAP (test code = AGAP) 10.7 10.0-20.0 [place] 564982-10-03 09:14:00 Test Item Value Reference Range Interpretation Comments B/C Ratio (test code = B/C Ratio) 11 1 6-25 [email or web address] [id number] 09:14:00 Test Item Value Reference Range Interpretation Comments Globulin (test code = Globulin) 3.3 2.7-4.2 [email or web address] [id number] 09:14:00 Test Item Value Reference Range Interpretation Comments A/G Ratio (test code = A/G Ratio) 0.9 1 0.7-1.6 [place] [address]-10-03 09:14:00 Test Item Value Reference Range Interpretation Comments eGFR (test code = eGFR) 93 [place] [address]-10-03 09:14:00 Test Item Value Reference Range Interpretation Comments Segs (test code = Segs) 71.2 45.0-75.0 [place] [address]-10-03 09:14:00 Test Item Value Reference Range Interpretation Comments Lymphocytes (test code = Lymphocytes) 17.6 20.0-40.0 [place] [address]-10-03 09:14:00 Test Item Value Reference Range Interpretation Comments Monocytes (test code = Monocytes) 9.0 2.0-12.0 [place] [address]-10-03 09:14:00 Test Item Value Reference Range Interpretation Comments Eosinophils (test code = 1.8 See_Comment [A utomated message] The Eosinophils) system which ge nerated this result tra nsmitted reference range : <=4.0. The reference r seema was not used to int erpret this result as normal/abnormal . [place] [address]-10-03 09:14:00 Test Item Value Reference Range Interpretation Comments Basophils (test code = 0.4 See_Comment [Aut omated message] The Basophils) system which ge nerated this result tra nsmitted reference range : <=1.0. The reference r seema was not used to int erpret this result as normal/abnormal . [place] [address]-10-03 09:14:00 Test Item Value Reference Range Interpretation Comments Neutrophils # (test code = Neutrophils 4.8 1.5-8.1 #) [place] [address]-10-03 09:14:00 Test Item Value Reference Range Interpretation Comments Lymphocytes # (test code = Lymphocytes 1.2 1.0-5.5 #) [place] [address]-10-03 09:14:00 Test Item Value Reference Range Interpretation Comments Monocytes # (test code 0.6 See_Comment [Aut omated message] The = Monocytes #) system which generated this result tra nsmitted reference range : <=0.8. The reference r seema was not used to int erpret this result as normal/abnormal . [place] [address]-10-03 09:14:00 Test Item Value Reference Range Interpretation Comments Eosinophils # (test code 0.1 See_Comment [A utomated message] The = Eosinophils #) system whic h generated this result tra nsmitted reference range : <=0.5. The reference r seema was not used to int erpret this result as normal/abnormal . [facility] CenterTivtkpkINBMGBMSHK4653-18-06 09:14:00 Test Item Value Reference Range Interpretation Comments WBC X 10x3 (test code = WBC X 10x3) 6.7 3.7-10.4 [facility] CenterRljetwfUPEPVYDRDU3973-04-63 09:14:00 Test Item Value Reference Range Interpretation Comments RBC X 10x6 (test code = RBC X 10x6) 3.65 4.70-6.10 [facility] CenterObivszyTQHVXMPUOO1485-94-18 09:14:00 Test Item Value Reference Range Interpretation Comments Hgb (test code = Hgb) 12.5 14.0-18.0 [place] 204382-10-03 09:14:00 Test Item Value Reference Range Interpretation Comments Hct (test code = Hct) 35.5 42.0-54.0 [facility] CenterWavowfmNLNRIVZSJN5492-55-67 09:14:00 Test Item Value Reference Range Interpretation Comments MCV (test code = MCV) 97.2 80.0-94.0 [facility] CenterNrpqikaTFTHPHGOXK4346-23-57 09:14:00 Test Item Value Reference Range Interpretation Comments MCH (test code = MCH) 34.2 pg 27.0-31.0 [facility] CenterWfpyhqpMMSOSWOFWK3637-93-62 09:14:00 Test Item Value Reference Range Interpretation Comments MCHC (test code = MCHC) 35.2 32.0-36.0 [facility] CenterMgauykmTCWRDZNJLW6177-90-78 09:14:00 Test Item Value Reference Range Interpretation Comments RDW (test code = RDW) 12.9 11.5-14.5 [facility] CenterCslskkiXBLSSUUFVI6829-72-05 09:14:00 Test Item Value Reference Range Interpretation Comments Platelet (test code = Platelet) 118 133-450 [facility] CenterTebezarNPUXWFCCYO6076-17-98 09:14:00 Test Item Value Reference Range Interpretation Comments MPV (test code = MPV) 9.5 7.4-10.4 [facility] EMHCQGZCD4859-16-99 09:14:00 Test Item Value Reference Range Interpretation Comments Hgb A1C (test code = Hgb A1C) 5.6 [facility] YRWORPBZP4236-21-59 09:14:00 Test Item Value Reference Range Interpretation Comments Hgb A1C (test code = Hgb A1C) 5.8 [facility]2022-10-02 10:37:00 Test Item Value Reference Range Interpretation Comments Glucose Lvl (test code = Glucose Lvl) 130 70-99 [place] 564982-10-02 10:37:00 Test Item Value Reference Range Interpretation Comments BUN (test code = BUN) 9 7-22 [facility]2022-10-02 10:37:00 Test Item Value Reference Range Interpretation Comments Creatinine Lvl (test code = Creatinine 0.90 0.50-1.40 Lvl) [facility]2022-10-02 10:37:00 Test Item Value Reference Range Interpretation Comments Sodium Lvl (test code = Sodium Lvl) 143 135-145 [facility]2022-10-02 10:37:00 Test Item Value Reference Range Interpretation Comments Potassium Lvl (test code = Potassium 3.3 3.5-5.1 Lvl) [facility]2022-10-02 10:37:00 Test Item Value Reference Range Interpretation Comments Chloride Lvl (test code = Chloride Lvl) 109 95-109 [facility]2022-10-02 10:37:00 Test Item Value Reference Range Interpretation Comments CO2 (test code = CO2) 24 24-32 [facility]2022-10-02 10:37:00 Test Item Value Reference Range Interpretation Comments Calcium Lvl (test code = Calcium Lvl) 8.7 8.5-10.5 [facility]2022-10-02 10:37:00 Test Item Value Reference Range Interpretation Comments Total Protein (test code = Total 6.3 6.4-8.4 Protein) [facility]2022-10-02 10:37:00 Test Item Value Reference Range Interpretation Comments Albumin Lvl (test code = Albumin Lvl) 3.2 3.5-5.0 [facility]2022-10-02 10:37:00 Test Item Value Reference Range Interpretation Comments ALT (test code = ALT) 511 See_Comment [Auto mated message] The system which ge nerated this result transmit niall reference range : <=65. The reference range was not used to interpr et this result as isabella l/abnormal. [place] 564982-10-02 10:37:00 Test Item Value Reference Range Interpretation Comments AST (test code = AST) 320 See_Comment [Auto mated message] The system which ge nerated this result transmit niall reference range : <=37. The reference range was not used to interpr et this result as isabella l/abnormal. [place] 564982-10-02 10:37:00 Test Item Value Reference Range Interpretation Comments Alk Phos (test code = Alk Phos) 197 39-136 [place] 564982-10-02 10:37:00 Test Item Value Reference Range Interpretation Comments Bili Total (test code = Bili Total) 5.4 0.2-1.3 [place] 564982-10-02 10:37:00 Test Item Value Reference Range Interpretation Comments AGAP (test code = AGAP) 13.3 10.0-20.0 [place] 564982-10-02 10:37:00 Test Item Value Reference Range Interpretation Comments B/C Ratio (test code = B/C Ratio) 10 1 6-25 [place] [address]-10-02 10:37:00 Test Item Value Reference Range Interpretation Comments Globulin (test code = Globulin) 3.1 2.7-4.2 [place] 564982-10-02 10:37:00 Test Item Value Reference Range Interpretation Comments A/G Ratio (test code = A/G Ratio) 1.0 1 0.7-1.6 [place] 564982-10-02 10:37:00 Test Item Value Reference Range Interpretation Comments eGFR (test code = eGFR) 90 [place] 204382-10-02 10:37:00 Test Item Value Reference Range Interpretation Comments Segs (test code = Segs) 76.7 45.0-75.0 [place] [address]-10-02 10:37:00 Test Item Value Reference Range Interpretation Comments Lymphocytes (test code = Lymphocytes) 13.2 20.0-40.0 [place] [address]-10-02 10:37:00 Test Item Value Reference Range Interpretation Comments Monocytes (test code = Monocytes) 9.6 2.0-12.0 [place] [address]-10-02 10:37:00 Test Item Value Reference Range Interpretation Comments Eosinophils (test code = 0.3 See_Comment [A utomated message] The Eosinophils) system which ge nerated this result tra nsmitted reference range : <=4.0. The reference r seema was not used to int erpret this result as normal/abnormal . [facility] CenterXcjrbdgCJUJNCTMHG0803-66-86 10:37:00 Test Item Value Reference Range Interpretation Comments Basophils (test code = 0.2 See_Comment [Aut omated message] The Basophils) system which ge nerated this result tra nsmitted reference range : <=1.0. The reference r seema was not used to int erpret this result as normal/abnormal . [place] 204382-10-02 10:37:00 Test Item Value Reference Range Interpretation Comments Neutrophils # (test code = Neutrophils 6.3 1.5-8.1 #) [place] 204382-10-02 10:37:00 Test Item Value Reference Range Interpretation Comments Lymphocytes # (test code = Lymphocytes 1.1 1.0-5.5 #) [place] 204382-10-02 10:37:00 Test Item Value Reference Range Interpretation Comments Monocytes # (test code 0.8 See_Comment [Aut omated message] The = Monocytes #) system which generated this result tra nsmitted reference range : <=0.8. The reference r seema was not used to int erpret this result as normal/abnormal . [facility] [id number] 10:37:00 Test Item Value Reference Range Interpretation Comments WBC X 10x3 (test code = WBC X 10x3) 8.3 3.7-10.4 [place] [id number] 10:37:00 Test Item Value Reference Range Interpretation Comments RBC X 10x6 (test code = RBC X 10x6) 3.93 4.70-6.10 [place] 204382-10-02 10:37:00 Test Item Value Reference Range Interpretation Comments Hgb (test code = Hgb) 13.3 14.0-18.0 [place] 204382-10-02 10:37:00 Test Item Value Reference Range Interpretation Comments Hct (test code = Hct) 37.4 42.0-54.0 [place] 204382-10-02 10:37:00 Test Item Value Reference Range Interpretation Comments MCV (test code = MCV) 95.3 80.0-94.0 [place] [address]-10-02 10:37:00 Test Item Value Reference Range Interpretation Comments MCH (test code = MCH) 33.9 pg 27.0-31.0 [place] [address]-10-02 10:37:00 Test Item Value Reference Range Interpretation Comments MCHC (test code = MCHC) 35.6 32.0-36.0 [place] [address]-10-02 10:37:00 Test Item Value Reference Range Interpretation Comments RDW (test code = RDW) 12.3 11.5-14.5 [place] [address]-10-02 10:37:00 Test Item Value Reference Range Interpretation Comments Platelet (test code = Platelet) 139 133-450 [place] 204382-10-02 10:37:00 Test Item Value Reference Range Interpretation Comments MPV (test code = MPV) 9.5 7.4-10.4 [place] [id number] 10:37:00 Test Item Value Reference Range Interpretation Comments Glucose Lvl (test code = Glucose Lvl) 130 70-99 [facility]2022-10-02 10:37:00 Test Item Value Reference Range Interpretation Comments BUN (test code = BUN) 9 7-22 [place] [id number] 10:37:00 Test Item Value Reference Range Interpretation Comments Creatinine Lvl (test code = Creatinine 0.90 0.50-1.40 Lvl) [facility]2022-10-02 10:37:00 Test Item Value Reference Range Interpretation Comments Sodium Lvl (test code = Sodium Lvl) 143 135-145 [place] [id number] 10:37:00 Test Item Value Reference Range Interpretation Comments Potassium Lvl (test code = Potassium 3.3 3.5-5.1 Lvl) [place] [id number] 10:37:00 Test Item Value Reference Range Interpretation Comments Chloride Lvl (test code = Chloride Lvl) 109 95-109 [facility]2022-10-02 10:37:00 Test Item Value Reference Range Interpretation Comments CO2 (test code = CO2) 24 24-32 [place] [id number] 10:37:00 Test Item Value Reference Range Interpretation Comments Calcium Lvl (test code = Calcium Lvl) 8.7 8.5-10.5 [facility]2022-10-02 10:37:00 Test Item Value Reference Range Interpretation Comments Total Protein (test code = Total 6.3 6.4-8.4 Protein) [facility]2022-10-02 10:37:00 Test Item Value Reference Range Interpretation Comments Albumin Lvl (test code = Albumin Lvl) 3.2 3.5-5.0 [facility] [id number] 10:37:00 Test Item Value Reference Range Interpretation Comments ALT (test code = ALT) 511 See_Comment [Auto mated message] The system which ge nerated this result transmit niall reference range : <=65. The reference range was not used to interpr et this result as isabella l/abnormal. [facility] [id number] 10:37:00 Test Item Value Reference Range Interpretation Comments AST (test code = AST) 320 See_Comment [Auto mated message] The system which ge nerated this result transmit niall reference range : <=37. The reference range was not used to interpr et this result as isabella l/abnormal. [facility] [id number] 10:37:00 Test Item Value Reference Range Interpretation Comments Alk Phos (test code = Alk Phos) 197 39-136 [facility] [id number] 10:37:00 Test Item Value Reference Range Interpretation Comments Bili Total (test code = Bili Total) 5.4 0.2-1.3 [facility] [id number] 10:37:00 Test Item Value Reference Range Interpretation Comments AGAP (test code = AGAP) 13.3 10.0-20.0 [facility] [id number] 10:37:00 Test Item Value Reference Range Interpretation Comments B/C Ratio (test code = B/C Ratio) 10 1 6-25 [facility] [id number] 10:37:00 Test Item Value Reference Range Interpretation Comments Globulin (test code = Globulin) 3.1 2.7-4.2 [facility] [id number] 10:37:00 Test Item Value Reference Range Interpretation Comments A/G Ratio (test code = A/G Ratio) 1.0 1 0.7-1.6 [facility]2022-10-02 10:37:00 Test Item Value Reference Range Interpretation Comments eGFR (test code = eGFR) 90 [facility] [id number] 10:37:00 Test Item Value Reference Range Interpretation Comments Segs (test code = Segs) 76.7 45.0-75.0 [place] [address]-10-02 10:37:00 Test Item Value Reference Range Interpretation Comments Lymphocytes (test code = Lymphocytes) 13.2 20.0-40.0 [place] [address]-10-02 10:37:00 Test Item Value Reference Range Interpretation Comments Monocytes (test code = Monocytes) 9.6 2.0-12.0 [place] [address]-10-02 10:37:00 Test Item Value Reference Range Interpretation Comments Eosinophils (test code = 0.3 See_Comment [A utomated message] The Eosinophils) system which ge nerated this result tra nsmitted reference range : <=4.0. The reference r seema was not used to int erpret this result as normal/abnormal . [place] [address]-10-02 10:37:00 Test Item Value Reference Range Interpretation Comments Basophils (test code = 0.2 See_Comment [Aut omated message] The Basophils) system which ge nerated this result tra nsmitted reference range : <=1.0. The reference r seema was not used to int erpret this result as normal/abnormal . [place] 204382-10-02 10:37:00 Test Item Value Reference Range Interpretation Comments Neutrophils # (test code = Neutrophils 6.3 1.5-8.1 #) [place] [address]-10-02 10:37:00 Test Item Value Reference Range Interpretation Comments Lymphocytes # (test code = Lymphocytes 1.1 1.0-5.5 #) [place] [address]-10-02 10:37:00 Test Item Value Reference Range Interpretation Comments Monocytes # (test code 0.8 See_Comment [Aut omated message] The = Monocytes #) system which generated this result tra nsmitted reference range : <=0.8. The reference r seema was not used to int erpret this result as normal/abnormal . [facility] [id number] 10:37:00 Test Item Value Reference Range Interpretation Comments WBC X 10x3 (test code = WBC X 10x3) 8.3 3.7-10.4 [facility] [id number] 10:37:00 Test Item Value Reference Range Interpretation Comments RBC X 10x6 (test code = RBC X 10x6) 3.93 4.70-6.10 [facility] C[id number] 10:37:00 Test Item Value Reference Range Interpretation Comments Hgb (test code = Hgb) 13.3 14.0-18.0 [facility] [id number] 10:37:00 Test Item Value Reference Range Interpretation Comments Hct (test code = Hct) 37.4 42.0-54.0 [facility] [id number] 10:37:00 Test Item Value Reference Range Interpretation Comments MCV (test code = MCV) 95.3 80.0-94.0 [facility] [id number] 10:37:00 Test Item Value Reference Range Interpretation Comments MCH (test code = MCH) 33.9 pg 27.0-31.0 [facility] [id number] 10:37:00 Test Item Value Reference Range Interpretation Comments MCHC (test code = MCHC) 35.6 32.0-36.0 [facility] [id number] 10:37:00 Test Item Value Reference Range Interpretation Comments RDW (test code = RDW) 12.3 11.5-14.5 [facility] [id number] 10:37:00 Test Item Value Reference Range Interpretation Comments Platelet (test code = Platelet) 139 133-450 [facility] [id number] 10:37:00 Test Item Value Reference Range Interpretation Comments MPV (test code = MPV) 9.5 7.4-10.4 [facility] Notes Date/Time Note Provider Source 2022-07-02 09:30:40-00:00 PROCEDURE INFORMATION: [facility] Exam: MR Abdomen Without Contrast Exam date and time: 07/02/2022 9:31 AM Age: 72 years old Clinical indication: Abdominal tenderness and bl oating; dilated cbd, biliary obstruction post cholecystectomy TECHNIQUE: Imaging protocol: Magnetic resonance imaging of the abdomen without contrast. COMPARISON: No relevant prior studies available. FINDINGS: The gallbladder is absent. Obstructing calculus within the distal aspect of the common bile duct located at the ampu lla measuring about 8 mm. Dilated CBD, luminal diameter 1.5 cm. Mild intrahepatic bilia ry ductal dilation. Assessment of visceral anatomy is limit ed by protocol. No gross abnormalities are demonstrated within the liver or pancreas. C ircumscribed area of T2 hyperintensity noted within the spleen measuring approximately 1.3 cm. Spleen otherwise unremarkable. Indeterminate left adren al nodule, 2.1 cm. Characterization limited without chemical shift images. Right adrenal gland unremarkable. With the excep tion of a few circumscribed T2 hyperintense lesions which most likely represent cysts, the kidneys a re otherwise unremarkable. No evidence of acute bowel pathology. No ascites. N o adenopathy. Small hiatal hernia noted. IMPRESSION: 1. Choledocholithiasis with biliary dilation. 2. Cholecystectomy. 3. Small hiatal hernia. 4. Probable splenic cyst or hemangioma, 1.3 cm. 5. Left adrenal nodule incompletely characterize d, 2.1 cm. Malachi Gabriel MD On 07/02/2022 10:28:21; -KMO [id number]
[2023-06-07 10:30] LABS: Absolute Lymphocytes (CBC) 1.6 K/uL (0.7-4.9); Hematocrit 40.1 % (39.6-49.0); Lymphocytes % 14.2 % (15.3-44.8); MCV 97.8 fL (80-100); MPV 8.7 fL (7.6-11.3); Platelets 182 thou/uL (152-406)
[2023-06-07 10:46] LABS: Albumin 3.8 g/dL (3.4-5.0); Bilirubin Total 1.3 mg/dL (0.2-1.0); Potassium 3.6 mEq/L (3.5-5.1); Protein, Total 7.6 g/dL (6.4-8.2)
[2023-06-07 10:55] LABS: Specific Gravity > 1.030 (1.005-1.030); Urine Bacteria <20 /HPF (<20); Urine Bilirubin NEGATIVE (Negative); Urine Blood 1+ (Negative); Urine Clarity Extremely Turbid (Clear); Urine Color Yellow (Yellow); Urine Glucose NEGATIVE (Negative); Urine Mucus 2+ /HPF (None Seen); Urine Protein 1+ (Negative); Urine RBC >50 /HPF (None Seen); Urine Urobilinogen Normal (Normal); Urine pH 5.5 (5.0-7.0)
--- NOTE | 2023-06-07 11:38 | RAD REPORT ---
EXAM DESCRIPTION: CT - Abdomen Pelvis W Contrast - 06/07/2023 11:03 am CLINICAL HISTORY: Abdominal pain COMPARISON: 2021 and 2020 TECHNIQUE: Computed axial tomography of the abdomen pelvis was obtained. 75 cc Isovue-300 was admini stered intravenously. Oral contrast was not requested which limits evaluation of bowel and appendix All CT scans are performed using dose optimization technique as appropriate and may include automated exposure control or mA/KV adjustment according to patient size. FINDINGS: 3 millimeter calculus right UVJ. Mild to moderate right hydronephrosis. Delay of concentra tion contrast right kidney. 3 centimeter soft tissue structure extends from the lateral aspect of the midpole right kidney Cholecystectomy. The liver, spleen, right adrenal and left kidney are unremarkable 2.5 centimeter left adrenal mass unchanged from 2020 probably an adenoma. Hounsfield unit 60 Prostate gland moderately enlarged. Small umbilical hernia IMPRESSION: 3 millimeter calculus right UVJ resulting in mild to moderate right hydronephrosis 3 centimeter soft tissue structure extends from the lateral aspect of the midpole of the right kidney . This most likely represents a normal lobulation. As a mass can have this appearance it is rec ommended that the patient have an ultrasound for confirmation.
[2023-06-07] MEDS ORDERED: CEFTRIAXONE 1000 MG/VIAL ONE (12:10)
[2023-06-07] MEDS ORDERED: NA CHLORIDE 0.9% 1,000 ML ONE (12:11)
[2023-06-07 12:27] LABS: Potassium 3.5 mEq/L (3.5-5.1)
--- NOTE | 2023-06-07 13:01 | RAD REPORT ---
EXAM DESCRIPTION: US - Renal Ultrasound-Complete - 06/07/2023 12:48 pm CLINICAL HISTORY: abd pain Flank pain COMPARISON: Abdomen Exam Limited dated 05/25/2021; Abdomen Pelvis W Contrast dated 06/07/2023; Abdome n Pelvis W Contrast dated 07/01/2022 FINDINGS: Protuberant right midpole structure is present measuring 4 cm. The right kidney measures 13.2 x 6.6 x 6.5 cm. No significant hydronephrosis. The left kidney measures 11.6 x 6.2 x 5.0 cm. No hydronephrosis, focal mass or perinephric fluid. 8 mm calcification in the bladder may be a bladder calculus. IMPRESSION: Protuberant right midpole structure measuring 4 cm favored to represent normal variant. However, recommend six-month follow-up renal sonography to monitor this finding. Suspected bladder calculus.
--- NOTE | 2023-06-07 13:54 | ER ---
Nurse's Notes [facility] Name: Jignesh Buchanan Age: 72 yrs Sex: Male : 1950 Arrival Date: 06/07/2023 Time: 09:26 Bed 18 Private MD: Diagnosis: UTI, kidney stone, ureterolithiasis, acute kidney injury Presentation: 06/07 09:46 Chief complaint: Patient states: abd cramps since Sunday, denies n/v/d, last BM was iw Sunday , last week I had hard stool and couldn't relieve myself, took stool softeners and Sunday he had a good BM. Coronavirus screen: At this time, the client does not indicate any symptoms associated with coronavirus-19. Ebola Screen: Patient negative for fever greater than or equal to 101.5 degrees Fahrenheit, and additional compatible Ebola Virus Disease symptoms Patient denies exposure to infectious person. Patient denies travel to an Ebola-affected area in the 21 days before illness onset. No symptoms or risks identified at this time. Initial Sepsis Screen: Does the patient meet any 2 criteria? No. Patient's initial sepsis screen is negative. Does the patient have a suspected source of infection? No. Patient's initial sepsis screen is negative. Risk Assessment: Do you want to hurt yourself or someone else? Patient reports no desire to harm self or others. Onset of symptoms was June 05, 2023. 09:46 Method Of Arrival: Ambulatory iw 09:46 Acuity: NERI 3 iw Historical: - Allergies: 09:49 No Known Allergies; iw - PMHx: 09:49 pre-diabetic; Hypertension; Hyperlipidemia; iw - PSHx: 09:49 Cholecystectomy; left leg; althea shoulders; iw - Immunization history:: Adult Immunizations. - Social history:: Smoking status: Patient denies any tobacco usage or history of. Screenin:32 [facility] ED Fall Risk Assessment (Adult) History of falling in the last 3 months, kc6 including since admission No falls in past 3 months (0 pts) Confusion or Disorientation No (0 pts) Intoxicated or Sedated No (0 pts) Impaired Gait No (0 pts) Mobility Assist Device Used No (0 pt) Altered Elimination No (0 pt) Score/Fall Risk Level 0 - 2 = Low Risk. Abuse screen: Denies threats or abuse. Denies injuries from another. Nutritional screening: No deficits noted. Tuberculosis screening: No symptoms or risk factors identified. Assessment: 10:33 General: Appears in no apparent distress. comfortable, Behavior is calm, cooperative, kc6 appropriate for age. Pain: Complains of pain in abdomen. Neuro: Level of Consciousness is awake, alert, obeys commands, Oriented to person, place, time, situation, Appropriate for age. Cardiovascular: Capillary refill < 3 seconds. Respiratory: Airway is patent Trachea midline Respiratory effort is even, unlabored, Respiratory pattern is regular, symmetrical. GI: Abdomen is flat, non-distended, Bowel sounds present X 4 quads. Abd is soft X 4 quads Reports constipation, Patient currently denies cramping, nausea, vomiting. : No signs and/or symptoms were reported regarding the genitourinary system. EENT: No signs and/or symptoms were reported regarding the EENT system. Derm: No signs and/or symptoms reported regarding the dermatologic system. Skin is intact, is healthy with good turgor, Skin is pink, warm \T\ dry. Musculoskeletal: No signs and/or symptoms reported regarding the musculoskeletal system. Circulation, motion, and sensation intact. Capillary refill < 3 seconds, Range of motion: intact in all extremities. 11:26 Reassessment: Patient appears in no apparent distress at this time. No changes from kc6 previously documented assessment. Patient and/or family updated on plan of care and expected duration. Pain level reassessed. Patient is alert, oriented x 3, equal unlabored respirations, skin warm/dry/pink. 12:26 Reassessment: Patient appears in no apparent distress at this time. No changes from kc6 previously documented assessment. Patient and/or family updated on plan of care and expected duration. Pain level reassessed. Patient is alert, oriented x 3, equal unlabored respirations, skin warm/dry/pink. 13:26 Reassessment: Patient appears in no apparent distress at this time. No changes from kc6 previously documented assessment. Patient and/or family updated on plan of care and expected duration. Pain level reassessed. Patient is alert, oriented x 3, equal unlabored respirations, skin warm/dry/pink. 14:26 Reassessment: Patient appears in no apparent distress at this time. No changes from kc6 previously documented assessment. Patient and/or family updated on plan of care and expected duration. Pain level reassessed. Patient is alert, oriented x 3, equal unlabored respirations, skin warm/dry/pink. 15:26 Reassessment: Patient appears in no apparent distress at this time. No changes from kc6 previously documented assessment. Patient and/or family updated on plan of care and expected duration. Pain level reassessed. Patient is alert, oriented x 3, equal unlabored respirations, skin warm/dry/pink. 16:02 Reassessment: please see [facility] for further charting. kc6 17:29 Reassessment: nurse to nurse report given to RUFINO Johnson. kc6 Vital Signs: 09:46 BP 134 / 81; Pulse 70; Resp 16; Temp 98.6; Pulse Ox 98% on R/A; Weight 104.33 kg; iw Height 6 ft. 0 in. ; Pain 7/10; 11:26 BP 151 / 76; Pulse 71; Resp 17 S; Pulse Ox 97% on R/A; kc6 13:12 BP 154 / 73; Pulse 67; Resp 18 S; Pulse Ox 99% on R/A; kc6 15:08 BP 118 / 74; Pulse 65; Resp 16 S; Pulse Ox 98% on R/A; kc6 09:46 Body Mass Index 31.19 (104.33 kg, 182.88 cm) iw 09:46 Pain Scale: Adult iw ED Course: 09:28 Patient arrived in ED. im 09:37 Charmaine Quan MD is Attending Physician. sp3 09:48 Triage completed. iw 09:49 Arm band placed on. iw 09:58 Nina Gonzalez RN is Primary Nurse. kc6 10:18 Inserted saline lock: 22 gauge in right antecubital area, using aseptic technique. kc6 Blood collected. 10:32 Patient has correct armband on for positive identification. Placed in gown. Bed in low kc6 position. Call light in reach. Side rails up X 1. 11:05 CT Abd/Pelvis - IV Contrast Only In Process Unspecified. EDMS 12:38 Renal Ultrasound-Complete In Process Unspecified. EDMS 13:54 Alena Veliz MD is Hospitalizing Provider. sp3 14:16 faxed chart to [facility]. bd 14:23 CXR XRAY In Process Unspecified. EDMS 16:02 No provider procedures requiring assistance completed. Patient admitted, IV remains in kc6 place. Administered Medications: 12:11 Drug: NS 0.9% IV 1000 ml Route: IV; Rate: 1 bolus; Site: right antecubital; kc6 16:03 Follow up: Response: No adverse reaction; IV Status: Completed infusion; IV Intake: kc6 1000ml 12:12 Drug: Rocephin IV 1 grams Route: IV; Rate: calculated rate; Site: right antecubital; kc6 13:12 Follow up: Response: No adverse reaction; IV Status: Completed infusion kc6 Medication: 16:02 VIS not applicable for this client. kc6 Intake: 16:03 IV: 1000ml; Total: 1000ml. kc Outcome: 13:54 Decision to Hospitalize by Provider. sp3 16:02 Admitted to ER Hold. Please see [facility] for further documentation. kc6 16:02 Condition: stable 16:02 Instructed on the need for admit. 18:07 Patient left the ED. [facility] [place] Signatures: Dispatcher [employer] EDMS Sierra Zamarripa Irene, RN RN iw Charmaine Quan MD MD sp3 Nina Gonzalez RN RN kc6 Lorraine Resendez
--- NOTE | 2023-06-07 13:54 | EDPHYS ---
Physician Documentation [facility] Name: Jignesh Buchanan Age: 72 yrs Sex: Male : 1950 Arrival Date: 06/07/2023 Time: 09:26 Bed 18 Private MD: ED Physician Charmaine Quan HPI: 06/07 10:30 This 72 yrs old Male presents to ER via Ambulatory with complaints of Abdominal Pain. sp3 10:30 72-year-old male with history of hypertension, hyperlipidemia, prediabetes now presents sp3 to the ED with chief complaint lower abdominal cramping for 4 days. Patient states he has been recently constipated with last BM 6 days ago which was "hard". Patient has been taking stool softener subsequent to that. On Sunday 2 days ago patient states he had a hamburger and since then he has had significant lower abdominal cramping. He is still having flatus though has not had any BM. He denies any other symptoms including fever, headache, URI symptoms, neck pain, chest pain, shortness of breath, upper abdominal pain, back pain, flank pain, dysuria, urinary frequency, gross hematuria, syncope, focal neurological deficit, rash, travel history, known sick contacts, or any other signs or symptoms on ROS at this time.. Historical: - Allergies: 09:49 No Known Allergies; iw - PMHx: 09:49 pre-diabetic; Hypertension; Hyperlipidemia; iw - PSHx: 09:49 Cholecystectomy; left leg; althea shoulders; iw - Immunization history:: Adult Immunizations. - Social history:: Smoking status: Patient denies any tobacco usage or history of. ROS: 10:31 Constitutional: Negative for fever, chills, and weight loss, Eyes: Negative for injury, sp3 pain, redness, and discharge, ENT: Negative for injury, pain, and discharge, Neck: Negative for injury, pain, and swelling, Cardiovascular: Negative for chest pain, palpitations, and edema, Respiratory: Negative for shortness of breath, cough, wheezing, and pleuritic chest pain, Back: Negative for injury and pain, MS/Extremity: Negative for injury and deformity, Skin: Negative for injury, rash, and discoloration, Neuro: Negative for headache, weakness, numbness, tingling, and seizure, Psych: Negative for depression, anxiety, suicide ideation, homicidal ideation, and hallucinations, Allergy/Immunology: Negative for hives, rash, and allergies, Endocrine: Negative for neck swelling, polydipsia, polyuria, polyphagia, and marked weight changes, Hematologic/Lymphatic: Negative for swollen nodes, abnormal bleeding, and unusual bruising. 10:31 All other systems are negative. Exam: 10:31 Constitutional: This is a well developed, well nourished patient who is awake, alert, sp3 and in no acute distress. Head/Face: Normocephalic, atraumatic. Eyes: Pupils equal round and reactive to light, extra-ocular motions intact. Lids and lashes normal. Conjunctiva and sclera are non-icteric and not injected. Cornea within normal limits. Periorbital areas with no swelling, redness, or edema. ENT: Nares patent. No nasal discharge, no septal abnormalities noted. External auditory canals are clear. Oropharynx with no redness, swelling, or masses, exudates, or evidence of obstruction, uvula midline. Mucous membranes moist. Neck: Trachea midline, no thyromegaly or masses palpated, and no cervical lymphadenopathy. Supple, full range of motion without nuchal rigidity, or vertebral point tenderness. No Meningismus. Chest/axilla: Normal chest wall appearance and motion. Nontender with no deformity. No lesions are appreciated. Cardiovascular: Regular rate and rhythm with a normal S1 and S2. No gallops, murmurs, or rubs. Normal PMI, no JVD. No pulse deficits. Respiratory: Lungs have equal breath sounds bilaterally, clear to auscultation and percussion. No rales, rhonchi or wheezes noted. No increased work of breathing, no retractions or nasal flaring. Back: No spinal tenderness. No costovertebral tenderness. Full range of motion. Skin: Warm, dry with normal turgor. Normal color with no rashes, no lesions, and no evidence of cellulitis. MS/ Extremity: Pulses equal, no cyanosis. Neurovascular intact. Full, normal range of motion. Neuro: Awake and alert, GCS 15, oriented to person, place, time, and situation. Cranial nerves II-XII grossly intact. Motor strength 5/5 in all extremities. Sensory grossly intact. Cerebellar exam normal. Normal gait. Psych: Awake, alert, with orientation to person, place and time. Behavior, mood, and affect are within normal limits. 10:31 Abdomen/GI: Patient has diffuse bilateral lower abdominal pain. No peritoneal signs, rebound or guarding noted. No flank pain CVA tenderness negative.. 15:17 ECG was reviewed by the Attending Physician. EKG demonstrates first-degree AV block to sp3 64 with a left bundle branch block unknown and duration. No old EKG available and patient is having no chest pain or shortness of breath as this was a preop EKG. Defer to anesthesia on further intervention. Will add troponin value to patient's labs to help inpatient team. Vital Signs: 09:46 BP 134 / 81; Pulse 70; Resp 16; Temp 98.6; Pulse Ox 98% on R/A; Weight 104.33 kg; iw Height 6 ft. 0 in. ; Pain 7/10; 11:26 BP 151 / 76; Pulse 71; Resp 17 S; Pulse Ox 97% on R/A; kc6 13:12 BP 154 / 73; Pulse 67; Resp 18 S; Pulse Ox 99% on R/A; kc6 15:08 BP 118 / 74; Pulse 65; Resp 16 S; Pulse Ox 98% on R/A; kc6 09:46 Body Mass Index 31.19 (104.33 kg, 182.88 cm) iw 09:46 Pain Scale: Adult iw MDM: 09:52 Patient medically screened. sp3 10:32 Data reviewed: vital signs, nurses notes, lab test result(s), radiologic studies. ED sp3 course: 72-year-old male with lower abdominal pain and constipation. Differential diagnosis is broad and includes constipation, partial SBO, SBO, colitis, ileus, genitourinary pathology including infection and stone, and too much less likely degree aortic pathology including aneurysm and dissection. Patient warrants CT scan of the abdomen and pelvis, laboratory values and urinalysis. Disposition will be based on work-up with discharge if simple constipation without obstruction.. 13:52 ED course: Discussed with Dr. Carlson who agrees with admission. We will admit to sp3 hospitalist, start antibiotics and preop with chest x-ray and EKG.. 06/07 09:53 Order name: CBC with Diff; Complete Time: 11:47 sp3 06/07 09:53 Order name: CMP; Complete Time: 11:47 sp3 06/07 09:53 Order name: Lipase; Complete Time: 11:47 sp3 06/07 09:53 Order name: Urinalysis w/ reflexes; Complete Time: 11:47 sp3 06/07 11:04 Order name: Urine Culture EDMS 06/07 11:54 Order name: Basic Metabolic Panel: Draw after NS Bolus; Complete Time: 13:09 sp3 06/07 15:12 Order name: Urinalysis w/ reflexes EDMS 06/07 15:12 Order name: Comprehensive Metabolic Panel EDMS 06/07 15:12 Order name: Comprehensive Metabolic Panel EDMS 06/07 15:12 Order name: Comprehensive Metabolic Panel EDMS 06/07 15:12 Order name: Comprehensive Metabolic Panel EDMS 06/07 15:12 Order name: Magnesium EDMS 06/07 15:12 Order name: Magnesium EDMS 06/07 15:12 Order name: Magnesium EDMS 06/07 15:12 Order name: Magnesium EDMS 06/07 15:12 Order name: Phosphorus EDMS 06/07 15:12 Order name: Phosphorus EDMS 06/07 15:12 Order name: Phosphorus EDMS 06/07 15:12 Order name: Phosphorus EDMS 06/07 15:19 Order name: Troponin High Sensitivity sp3 06/07 09:53 Order name: CT Abd/Pelvis - IV Contrast Only; Complete Time: 11:47 sp3 06/07 12:01 Order name: Renal Ultrasound-Complete; Complete Time: 13:09 EDMS 06/07 13:53 Order name: CXR XRAY sp3 06/07 13:53 Order name: EKG; Complete Time: 13:53 sp3 06/07 15:09 Order name: Diet Heart Healthy; Complete Time: 15:09 6 06/07 09:53 Order name: IV Saline Lock; Complete Time: 10:18 sp3 06/07 09:53 Order name: Labs collected and sent; Complete Time: 10:18 sp3 06/07 13:53 Order name: EKG - Nurse/Tech; Complete Time: 15:05 sp3 Administered Medications: 12:11 Drug: NS 0.9% IV 1000 ml Route: IV; Rate: 1 bolus; Site: right antecubital; kc6 16:03 Follow up: Response: No adverse reaction; IV Status: Completed infusion; IV Intake: kc6 1000ml 12:12 Drug: Rocephin IV 1 grams Route: IV; Rate: calculated rate; Site: right antecubital; kc6 13:12 Follow up: Response: No adverse reaction; IV Status: Completed infusion kc6 Disposition Summary: 06/07/23 13:54 Hospitalization Ordered Hospitalization Status: Inpatient Admission sp3 Provider: Alena Veliz [facility] sp3 Condition: Stable sp3 Problem: new sp3 Symptoms: have worsened sp3 Bed/Room Type: Standard sp3 Room Assignment: 407(06/07/23 17:15) bd Diagnosis - UTI, kidney stone, ureterolithiasis, acute kidney injury sp3 Forms: - Medication Reconciliation Form sp3 - SBAR form sp3 - Leadership Thank You Letter sp3 Signatures: Dispatcher [employer] EDMS Sierra Zamarripa Irene RN RUFINO iw Charmaine Quan MD MD sp3 Nina Gonzalez RN RN kc6 Corrections: (The following items were deleted from the chart) 12:01 11:57 Renal Ultrasound-Limited ordered. EDKY EDMS 17:15 13:54 sp3 bd
--- NOTE | 2023-06-07 14:29 | RAD REPORT ---
EXAM DESCRIPTION: RAD - Chest Single View - 06/07/2023 2:21 pm CLINICAL HISTORY: preop Chest pain. COMPARISON: Chest Single View dated 12/24/2021; Chest Single View dated 05/25/2021; Abdomen 1 View ([facility]) dated 02/07/2018; Chest Single View dated 06/16/2016 FINDINGS: Portable technique limits examination quality. The lungs are grossly clear. The heart is normal in size. No displaced fractures. IMPRESSION: No acute intrathoracic process suspected.
[2023-06-07] MEDS ORDERED: ONDANSETRON 4 MG/2 ML VIAL IV PRN (15:07)
[2023-06-07] MEDS ORDERED: ACETAMINOPHEN 500 MG TAB PO PRN (15:07)
[2023-06-07 16:59] VITALS: BMI 30.9
[2023-06-07] MEDS ORDERED: HEPARIN 5000 UNIT/ML 1 ML VIAL SQ SCH (17:00)
[2023-06-07] MEDS ORDERED: HEPARIN 5000 UNIT/ML 1 ML VIAL ONE (17:22)
--- NOTE | 2023-06-07 18:58 | P.HP ---
Certification for Inpatient Patient admitted to: Observation With expected LOS: <2 Midnights Patient will require the following post-hospital care: None Practitioner: I am a practitioner with admitting privileges, knowledge of patient current condition, hospital course, and medical plan of care. Services: Services provided to patient in accordance with Admission requirements found in Title 42 Section 412.3 of the Code of Federal Regulations Patient History Date of Service: 06/07/23 History of Present Illness: 70-year-old male patient with a history of hypertension hyperlipidemia prediabetes came to ER with complaining of abdominal pain for 4 days patient reports that he was recently constipated for 6 days and he was taking stool softener 2 days ago patient had a hamburger and since then he had significant abdominal cramping patient still having flatus through both he was not had any BM he denies any symptoms of fever headache neck pain chest pain shortness of breath upper abdominal pain back pain or flank pain patient denies dysuria urinary frequency hematuria syncope focal neurological deficit rashes travel history no sick contacts. Vital signs on admission blood pressure 134/81 pulse 70 respirations 16 temperature 98.6 pulse ox 98% on room air. Labs WBC elevated 11.20 neutrophils 76.6 lymphocytes 14.2 chemistry BUN 24 elevated creatinine 1.84 GFR 34 blood glucose 147 urine analysis is positive. CT abdomen and pelvis with contrast shows 3 mm calculus right UVJ resulting in mild to moderate right hydronephrosis, 3 cm soft tissue structure extending from the lateral aspect of the midpole of the right kidney. This most likely 0% and normal fecal lobulation. As the mass can have this appearance it is recommended that the patient have an ultrasound for confirmation. Renal ultrasound shows protuberant right midpole structure measuring 4 cm favored to represent normal variant however, recommend 6-month follow-up with renal sonography to monitor this finding. Patient was administered and referred to urology Dr. Carlson. Patient was given IV Rocephin 1 g x 1 and IV fluid normal saline 1 L x 1. Allergies No Known Drug Allergies Allergy (Mild, Verified 12/24/21 23:30) Rash Home Medications: Amlodipine [Norvasc*] 5 mg PO BID 12/25/21 Doxazosin [Cardura*] 2 mg PO BID 12/25/21 Doxycycline Hyclate 50 mg PO DAILY 12/25/21 Eszopiclone [Lunesta] 3 mg PO BEDTIME PRN 12/25/21 Metformin ER [Glucophage ER*] 500 mg PO BID 12/25/21 Rosuvastatin [Crestor*] 5 mg PO DAILY 12/25/21 Telmisartan/Hydrochlorothiazid [Telmisartan-Hctz 80-12.5 mg Tb] 1 tab PO DAILY 12/25/21 Gabapentin [Gralise] 300 mg PO DAILY 30 Days #30 tab.er.24h 12/27/21 - Past Medical/Surgical History Diabetic: Yes -: Type 2 diabetes, [id number] -: Hypertension -: Hyperlipidemia -: CAD -: Cholecystectomy Psychosocial/ Personal History: Patient lives at home alone. - Social History Smoking Status: Never smoker Alcohol use: No CD- Drugs: No Caffeine use: Yes Place of Residence: Home Review of Systems 10-point ROS is otherwise unremarkable General: Fever Eyes: Pain ENT: Unremarkable Respiratory: Unremarkable Gastrointestinal: Abdominal Pain (abdominal camping) Genitourinary: Unremarkable Musculoskeletal: Unremarkable Physical Examination - Vital Signs Temperature: 98.6 F Blood Pressure: 118/74 Pulse: 65 Respirations: 16 - Physical Exam General: Alert, Oriented x3 HEENT: Atraumatic, PERRLA Neck: Supple Respiratory: Clear to auscultation bilaterally Cardiovascular: No edema Capillary refill: <2 Seconds Gastrointestinal: Non-distended Musculoskeletal: No swelling Integumentary: No rashes, No erythema - Studies Laboratory Data (last 24 hrs) 06/07/23 06/07/23 06/07/23 12:03 10:15 10:15 WBC 11.20 H Hgb 13.7 Hct 40.1 Plt Count 182 Sodium 137 138 Potassium 3.5 3.6 BUN 22 H 24 H Creatinine 1.91 H 1.84 H Glucose 132 H 147 H Total Bilirubin 1.3 H AST 11 L ALT 25 Alkaline Phosphatase 57 Lipase 50 Assessment and Plan - Plan Diagnosis and plan UTI Kidney stone ,ureteral lithiasis Acute kidney injury Prediabetic, hypertension, hyperlipidemia Diagnosis and plan UTI : Acute, positive urine analysis, elevated WBC Rocephin 1 g IV given We will continue to monitor, Kidney stone ureteral lithiasis: -Acute, CT abdomen and pelvis with contrast shows 3 mm calculus right UVJ resulting in mild to moderate right hydronephrosis, 3 cm soft tissue structure extending from the lateral aspect of the midpole of the right kidney. -Referred to urologist Dr. Carlson. Planning for surgical intervention -We will continue to monitor Acute kidney kidney injury: -Acute kidney injury with the labs showing BUN 24 elevated creatinine 1.84 GFR 34 -IV fluids started for hydration -Nephrology referral -Chronic constipation -Chronic and uncontrolled. Will start high-fiber diet, stool softener and laxative as needed for constipation Prediabetic, hypertension, hyperlipidemia -Chronic controlled, resume home medications Admitted to the hospital And is full code DVT prophylaxis ordered. Discharge Plan: Home Plan to discharge in: 48 Hours - Advance Directives Does patient have a Living Will: No Does patient have a Durable POA for Healthcare: No - Code Status/Comfort Care Code Status Assessed: Yes (full code) Code Status: Full Code Critical Care: No Time Spent Managing Pts Care (In Minutes): 55 (minutes)
--- NOTE | 2023-06-07 22:17 | P.CNS ---
Date of Consult: 06/08/23 Reason for Consult: Obstructive ureterolithiasis with TOM Chief Complaint: Lower abdominal pain History of Present Illness: 72-year-old gentleman with hypercholesterolemia, well-controlled DM 2 with hemoglobin A1c 5.1, and hypertension presented via the emergency department because of lower abdominal pain extending across his bilateral lower quadrants. He was evaluated in the emergency department where he was found to have a 3 mm right UVJ calculus associated with a creatinine of 1.8 when his baseline is 1.0. As a result, he was admitted and urology consultation was requested. He is uncertain whether he had kidney stones or gallstones last year when he was seen and underwent a "duct" stent that was subsequently removed because of a calculus obstruction of the "duct", but this sounds like perhaps a pancreatic duct stent that was removed. He denies any associated flank pain, fevers or chills, and no nausea or vomiting. Past medical and surgical history as above No known drug allergies No history of smoking or recreational drug use Examination: Comfortable and well-appearing in no acute distress Alert, awake, oriented x3 No dyspnea no sign of respiratory distress Abdomen soft, nontender, nondistended, no masses palpable No CVA tenderness Seated upright in the hospital bed 06/07/2023 WBC 11.2, hemoglobin 13.7, platelets 182, creatinine 1.91 06/07/2023 CT abdomen and pelvis with contrast findings: 3 mm calculus right UVJ with moderate to mild right hydronephrosis. Delay of contrast right kidney. 3 cm soft tissue structure extends from the lateral aspect of the midpole right kidney. Status post cholecystectomy. The liver, spleen, right adrenal and left kidney are unremarkable. 2.5 cm left adrenal mass unchanged from 2020 with Hounsfield unit of 60. Small umbilical hernia. Impression: 3 mm calculus right UVJ resulting in mild to moderate right hydronephrosis. 3 cm soft tissue structure extending from the lateral aspect of the mid pole of the right kidney. This most likely represents a normal lobulation. As a mass can have this appearance, it is recommended that the patient have an ultrasound for confirmation. Renal Ultrasound-Complete - 06/07/2023 12:48 pm FINDINGS: Protuberant right midpole structure is present measuring 4 cm. The right kidney measures 13.2 x 6.6 x 6.5 cm. No significant hydronephrosis. The left kidney measures 11.6 x 6.2 x 5.0 cm. No hydronephrosis, focal mass or perinephric fluid. 8 mm calcification in the bladder may be a bladder calculus. IMPRESSION: Protuberant right midpole structure measuring 4 cm favored to represent normal variant. However, recommend six-month follow-up renal sonography to monitor this finding. Suspected bladder calculus. Assessment, counseling and recommendation: 72-year-old gentleman with hypercholesterolemia, well-controlled DM 2 with hemoglobin A1c 5.1, and hypertension with bilateral lower quadrant pain potentially secondary to obstruction from a 3 mm right UVJ calculus with TOM and an incidentally observed 8 mm bladder calculus and 3 cm soft tissue structure emanating from the lateral aspect of the midpole of the right kidney in the setting of a 2.5 cm left adrenal mass. -Counseled the patient that given the acute kidney injury, decompression would be recommended with a left ureteral stent. While we were prepared to do this on evening, unfortunately, the emergency department fed the patient a full dinner meal at around 5 PM prior to his transfer to the inpatient floor for admission. This meal was given despite explicit instructions that the patient be kept n.p.o. and made preop ready. As a result, the patient was not eligible for anesthetic intervention per the anesthesiologist for at least 8 hours. Thus, the following are recommended case was delayed until today. -Cystoscopy with right retrograde pyelography and right ureteral stent placement with removal of the bladder calculus -I counseled the patient on the risks of the procedure to include urethral stricture, infection, and failure to be able to stent resulting in need for percutaneous nephrostomy tube placement. Side effects of stent discomfort were also discussed. Need for subsequent removal of the stent and definitive ma nagement of the stone was also discussed. Consent was obtained. -Subsequent outpatient follow-up and evaluation of his right renal lesion/mass and left adrenal mass will be required -Outpatient follow-up and discussion and plan for definitive surgical management of his obstructive right ureterolithiasis will also be required post stent placement Allergies No Known Drug Allergies Allergy (Mild, Verified 12/24/21 23:30) Rash Home medications list reviewed: Yes Home Medications: Amlodipine [Norvasc*] 5 mg PO BID 12/25/21 Doxazosin [Cardura*] 2 mg PO BID 12/25/21 Doxycycline Hyclate 50 mg PO DAILY 12/25/21 Eszopiclone [Lunesta] 3 mg PO BEDTIME PRN 12/25/21 Metformin ER [Glucophage ER*] 500 mg PO BID 12/25/21 Rosuvastatin [Crestor*] 5 mg PO DAILY 12/25/21 Telmisartan/Hydrochlorothiazid [Telmisartan-Hctz 80-12.5 mg Tb] 1 tab PO DAILY 12/25/21 Gabapentin [Gralise] 300 mg PO DAILY 30 Days #30 tab.er.24h 12/27/21 - Past Medical/Surgical History Diabetic: Yes -: Type 2 diabetes, [id number] -: Hypertension -: Hyperlipidemia -: CAD -: Cholecystectomy Psychosocial/ Personal History: Patient lives at home alone. - Social History Alcohol use: No CD- Drugs: No Caffeine use: Yes Place of Residence: Home Physical Examination Temp Pulse Resp BP Pulse Ox 97.8 F 65 17 146/72 H 96 06/07/23 20:00 06/07/23 20:00 06/07/23 20:00 06/07/23 20:00 06/07/23 20:00 Laboratory Data (last 24 hrs) 06/07/23 06/07/23 06/07/23 12:03 10:15 10:15 WBC 11.20 H Hgb 13.7 Hct 40.1 Plt Count 182 Sodium 137 138 Potassium 3.5 3.6 BUN 22 H 24 H Creatinine 1.91 H 1.84 H Glucose 132 H 147 H Total Bilirubin 1.3 H AST 11 L ALT 25 Alkaline Phosphatase 57 Lipase 50 Conclusions/Impression: See HPI Critical Care: No Time Spent Managing Pts care (In Minutes): 45
[2023-06-07] MEDS ORDERED: D5 0.45 NS 1,000 ML IV SCH (23:45)
[2023-06-07] MEDS: D5 0.45 NS 1,000 ML IV SCH (23:45)
[2023-06-08] MEDS: D5 0.45 NS 1,000 ML IV SCH ×4 (07:06→20:03)
[2023-06-08] MEDS ORDERED: NA CHLORIDE 0.9% 1,000 ML ONE (08:04)
[2023-06-08] MEDS ORDERED: CEFAZOLIN SODIUM 2 GM/VIAL ONE (08:36)
[2023-06-08] MEDS ORDERED: ONDANSETRON 4 MG/2 ML VIAL ONE (08:54)
[2023-06-08] MEDS ORDERED: dexAMETHasone 10 MG/ML VIAL ONE ×2 (08:54)
[2023-06-08] MEDS ORDERED: FENTANYL CITR 100 MCG/2 ML ONE (08:54)
[2023-06-08] MEDS ORDERED: EPINEPHRINE/PF 1 MG/ML AMP ONE (08:54)
[2023-06-08] MEDS ORDERED: ROPLVACAINE HCL 40 ML ONE (08:54)
[2023-06-08] MEDS ORDERED: propofoL 200 MG/20 ML VIAL IV ONE (08:54)
[2023-06-08] MEDS ORDERED: KETOROLAC 30 MG/ML INJ ONE (08:54)
[2023-06-08] MEDS ORDERED: MIDAZOLAM HCL 2 MG/2 ML INJ ONE (08:54)
[2023-06-08] MEDS ORDERED: LIDOCAINE 1% MPF 5 ML VIAL ONE ×2 (08:54)
--- NOTE | 2023-06-08 09:00 | RAD REPORT ---
EXAM DESCRIPTION: RAD - Urethrocystogrphy Retrograde - 06/08/2023 8:50 am CLINICAL HISTORY: STENT PLACEMENT COMPARISON: Pelvis dated 06/16/2016 FINDINGS: Total fluoro time: 0.07 minutes.
--- NOTE | 2023-06-08 09:02 | P.OP ---
Date of Service: 06/08/23 Preoperative diagnoses: Obstructive right ureterolithiasis 3 mm Bladder calculus 8 mm Acute kidney injury Postoperative diagnoses: Obstructive right ureterolithiasis 3 mm Bladder calculus 8 mm Acute kidney injury Bulbar urethral stricture BPH with obstruction Principal procedures: Cystoscopy with dilation of bulbar urethral stricture Cystoscopy and foreign body extraction Right retrograde pyelography Right ureteral stent placement 18 Dutch coud urethral Tobias catheter placement Bladder irrigation Indication for Procedure: 72-year-old gentleman with hypercholesterolemia, well-controlled DM 2 with hemoglobin A1c 5.1, and hypertension with bilateral lower quadrant pain potentially secondary to obstruction from a 3 mm right UVJ calculus with TOM and an incidentally observed 8 mm bladder calculus and 3 cm soft tissue structure emanating from the lateral aspect of the midpole of the right kidney in the setting of a 2.5 cm left adrenal mass. Plan:Cystoscopy with right retrograde pyelography and right ureteral stent placement with removal of the bladder calculus Findings and Operative Technique The patient was consented on the inpatient unit before being transferred to the operative suite where general anesthesia was induced. He was given Ancef 2 g IV antimicrobial prophylaxis, and pneumoboots were provided for DVT prophylaxis. He was placed in the lithotomy position, padded and secured to the table appropriately. His genitalia was prepped with Hibiclens and he was draped in standard fashion. The case was begun using a 22 Dutch rigid cystoscope to traverse the urethra and into the bladder. There was a mucosal flap within the bulbar urethra which slowed and made slightly difficult the passage of the cystoscope. As a result, I had to dilate and disrupt this mucosal flap in order to get the scope into his bladder. Upon entry into the bladder, I decompressed his bladder of fluid and urine and surveyed the bladder identifying the previously observed 8 mm bladder calculus on CT. Cystoscopic findings: Bulbar urethral stricture/mucosal flap, filmy. Trilobar hypertrophy with elevated median bar and intravesical projection of the median lobe abutting the ureteral orifices. Bladder calculus. I was then able to use the sheath of the cystoscope to navigate the calculus, which was more ovoid in shape, and to get it to come out of the bladder and cystoscope with relative ease. I then refilled his bladder with sterile saline and identified the right ureteral orifice. I cannulated the ureteral orifice using the tip of a 5 Dutch ureteral access catheter with some slight resistance within the intramural component of the UVJ, likely the calculus. I then performed a retrograde pyelogram. Right retrograde pyelography: Using a 70: 30 mixture of Omnipaque and saline, contrast was injected via the lumen of the 5 Dutch ureteral access catheter and did propagate past the obstruction in the UVJ into the distal ureter, and with significantly delayed ureterogram, it slowly progressed up into the mid and proximal ureter before just entering the renal pelvis, at which point I stopped injecting contrast. Repeat fluoroscopic imagery confirmed contrast filling partially the upper and lower pole calyces of the kidney; so I passed a sensor wire via the 5 Dutch ureteral access catheter and successfully coiled it within the upper pole of the right kidney. Over the sensor wire, I backloaded a 6 Dutch by 26 cm double-J ureteral stent, and I passed it up into the kidney coiling it within the upper pole as observed fluoroscopically, and forming a coil cystoscopically and fluoroscopically observed within his bladder. I then decompressed his bladder of fluid and urin e, but because there was some hematuria associated with the urethral trauma with dilation of the filmy mucosal stricture, I then refilled his bladder and placed a 20 Dutch coud tipped Tobias catheter with ease. 10 cc of sterile water was placed in the balloon, and the catheter was placed to gravity drainage. I then irrigated the catheter to remove some blood and clots that had formed within unt il the urine was light pink. We then connected the catheter to a floor bag, and I took the patient out of the lithotomy position. He was then awakened from general anesthesia, transferred to a stretcher, and then transferred to the recovery room in good condition. Complications: None Discharge Disposition: -Ensure resolution of his TOM, then patient eligible for discharge if no signs of complicating infection -Please discontinue urethral Tobias catheter prior to discharge anticipated in 24 to 48 hours -Continue antimicrobial therapy as appropriate at least until urethral Tobias catheter removed -Follow-up with me in the urology clinic to discuss plans for definitive management of his obstructing right ureteral calculus. -Subsequent outpatient evaluation of his right renal lesion/mass and left adrenal mass will be required
[2023-06-08] MEDS ORDERED: CODEINE 30MG/APAP 300MG TAB PO PRN ×2 (09:11→09:17)
[2023-06-08 09:21] VITALS: O2SAT 98
[2023-06-08 12:33] LABS: Lymphocytes % 12.7 % (15.3-44.8); MCV 96.9 fL (80-100); MPV 8.6 fL (7.6-11.3); Platelets 144 thou/uL (152-406); RBC Red Blood Cell Count 3.92 M/uL (4.33-5.43)
[2023-06-08 12:49] LABS: Albumin 3.1 g/dL (3.4-5.0); Bilirubin Total 0.5 mg/dL (0.2-1.0); Potassium 3.3 mEq/L (3.5-5.1); Protein, Total 6.7 g/dL (6.4-8.2)
[2023-06-08] MEDS: PHENAZOPYRIDINE 100MG TAB PO PRN (14:41)
[2023-06-08] MEDS: SMZ./TMP. 800/160 MG TABLET PO SCH (16:34)
--- NOTE | 2023-06-08 17:00 | EKG ---
Test Date: 2023-06-07 Test Time: 15:03:38 Consulting Nurse: WILMAN MEASUREMENT RESULTS: Intervals: Rate: 65 KS: 264 QRSD: 150 QT: 458 QTc: 476 [place]: P: 117 KS: 264 QRS: -47 T: 97 INTERPRETIVE STATEMENTS: Sinus rhythm with 1st degree AV block Left axis deviation Left ventricular hypertrophy with QRS widening and repolarization abnormality Abnormal ECG Electronically Signed On 06-08-23 16:58:26 CDT by Darrell Degroot
[2023-06-09] MEDS: SMZ./TMP. 800/160 MG TABLET PO SCH ×2 (00:08→08:45)
[2023-06-09] MEDS: PHENAZOPYRIDINE 100MG TAB PO PRN (02:46)
[2023-06-09] MEDS: D5 0.45 NS 1,000 ML IV SCH (02:48)
--- NOTE | 2023-06-09 09:39 | P.PN ---
Date of Service: 06/08/23 Subjective Patient is clinically doing well with no new complaints. Patient scheduled for outpatient follow-up. If patient does well today then discharge in the morning. Physical Examination - Vital Signs Reviewed - Physical Exam General: Alert, Oriented x3 Respiratory: Clear to auscultation bilaterally Cardiovascular: No edema Capillary refill: <2 Seconds Gastrointestinal: Non-distended Musculoskeletal: No swelling Integumentary: No rashes, No erythema Assessment and Plan - Assessment UTI Kidney stone ,ureteral lithiasis Acute kidney injury Prediabetic, hypertension, hyperlipidemia - Plan UTI Acute, positive urine analysis, elevated WBC Rocephin 1 g IV given We will continue to monitor, Kidney stone ureteral lithiasis: -Referred to urologist Dr. Carlson. s/p surgical intervention -We will continue to monitor Acute kidney kidney injury: -Acute kidney injury with the labs showing BUN 24 elevated creatinine 1.84 GFR 34 -IV fluids started for hydration -Nephrology referral -Chronic constipation -Chronic and uncontrolled. Will start high-fiber diet, stool softener and laxative as needed for constipation DM2 Hypertension, Hyperlipidemia -Chronic controlled, resume home medications
--- NOTE | 2023-06-09 10:00 | P.DS ---
Discharge Date: 06/09/23 Disposition: ROUTINE DISCHARGE Discharge Condition: GOOD Reason for Admission: Lower abdominal pain Brief History of Present Illness: Pt is a 70-year-old male patient with a history of hypertension hyperlipidemia prediabetes came to ER with complaining of abdominal pain for 4 days patient reports that he was recently constipated for 6 days and he was taking stool softener 2 days ago patient had a hamburger and since then he had significant abdominal cramping patient still having flatus through both he was not had any BM he denies any symptoms of fever headache neck pain chest pain shortness of breath upper abdominal pain back pain or flank pain patient denies dysuria urinary frequency hematuria syncope focal neurological deficit rashes travel history no sick contacts. Vital signs on admission blood pressure 134/81 pulse 70 respirations 16 temperature 98.6 pulse ox 98% on room air. Labs WBC elevated 11.20 neutrophils 76.6 lymphocytes 14.2 chemistry BUN 24 elevated creatinine 1.84 GFR 34 blood glucose 147 urine analysis is positive. CT abdomen and pelvis with contrast shows 3 mm calculus right UVJ resulting in mild to moderate right hydronephrosis, 3 cm soft tissue structure extending from the lateral aspect of the midpole of the right kidney. This most likely 0% and normal fecal lobulation. As the mass can have this appearance it is recommended that the patient have an ultrasound for confirmation. Renal ultrasound shows protuberant right midpole structure measuring 4 cm favored to represent normal variant however, recommend 6-month follow-up with renal sonography to monitor this finding. Patient was administered and referred to urology Dr. Carlson. Patient was given IV Rocephin 1 g x 1 and IV fluid normal saline 1 L x 1. Hospital Course: Pt is doing well with no new complaints; pt is doing much better. Symptoms are much improved. Pt is stable for DC. Urology follow-up pending. Vital Signs/Physical Exam: Temp Pulse Resp BP Pulse Ox 97.7 F 62 16 126/73 92 06/09/23 08:00 06/09/23 08:00 06/09/23 08:00 06/09/23 08:00 06/09/23 08:00 General: Alert, In no apparent distress, Oriented x3 Laboratory Data at Discharge: WBC 7.80 thou/uL (4.3-10.9) 06/08/23 12:15 Hgb 13.3 g/dL (13.6-17.9) L 06/08/23 12:15 Hct 38.0 % (39.6-49.0) L 06/08/23 12:15 Plt Count 144 thou/uL (152-406) L 06/08/23 12:15 Sodium 139 mEq/L (136-145) 06/08/23 12:15 Potassium 3.3 mEq/L (3.5-5.1) L 06/08/23 12:15 BUN 15 mg/dL (7-18) 06/08/23 12:15 Creatinine 0.92 mg/dL (0.70-1.30) 06/08/23 12:15 Glucose 176 mg/dL (74-106) H 06/08/23 12:15 Total Bilirubin 0.5 mg/dL (0.2-1.0) 06/08/23 12:15 AST 10 U/L (15-37) L 06/08/23 12:15 ALT 22 U/L (16-61) 06/08/23 12:15 Alkaline Phosphatase 48 U/L (45-117) 06/08/23 12:15 Lipase 50 U/L (13-75) 06/07/23 10:15 Home Medications: Amlodipine [Norvasc*] 5 mg PO BID 12/25/21 Doxazosin [Cardura*] 2 mg PO BID 12/25/21 Doxycycline Hyclate 50 mg PO DAILY 12/25/21 Eszopiclone [Lunesta] 3 mg PO BEDTIME PRN 12/25/21 Metformin ER [Glucophage ER*] 500 mg PO BID 12/25/21 Rosuvastatin [Crestor*] 5 mg PO DAILY 12/25/21 Telmisartan/Hydrochlorothiazid [Telmisartan-Hctz 80-12.5 mg Tb] 1 tab PO DAILY 12/25/21 Gabapentin [Gralise] 300 mg PO DAILY 30 Days #30 tab.er.24h 12/27/21 Smz./Tmp. [Bactrim Ds 800 MG/160 MG] 1 tab PO BID #6 tab 06/08/23 New Medications: Smz./Tmp. [Bactrim Ds 800 MG/160 MG] 1 tab PO BID #6 tab Physician Discharge Instructions: Diet:Low sodium Activity:Ad keith PHYSICIAN'S DISCHARGE INSTRUCTIONS You had a urethral Tobias catheter in place because of some slight scar tissue observed in your urethra. This may come out prior to your discharge from the hospital, but I would like for you to continue with an antibiotic for at least 3 days, Bactrim/trimethoprim sulfamethoxazole. You also have a new foreign body in your bladder, the right ureteral stent. This must be removed within 6 months maximum to prevent complications of encrustation and infection which could cause damage to your ureter. Please ensure to follow-up as scheduled to get your stone taken care of and the stent removed. Notify me if you develop any fever (temperature greater than 100.4 Fahrenheit), intractable nausea or vomiting, increasing pain not controlled by pain medications, or other unusual signs or symptoms. It is common to see some blood in the urine following your procedure. It will be light pink/cranberry colored initially, and then it will become dark or tea colored, when the blood oxidized is in the urine, before it finally clears up. It is only a concern if you note bright red and thick/nontranslucent (not see-through) blood in the urine that appears like tomato juice. Notify me if you have any difficulty urinating, or if you feel the need to push or strain to urinate, as this may be a problem. For pain management, you may take plain Tylenol (up to 1000 mg every 6 hours ma ximum) and alternate this every 4 hours with Motrin/ibuprofen (up to 800 mg every 8 hours maximum) for your pain. Please take note and keep the total 24- hour daily dose of Tylenol/acetaminophen less than 4000 mg / 4 g from all sources. You may purchase [id number] Azo (Pyridium) if you have burning with urination. Please note, it will turn your urine bright orange. Please contact my office to arrange follow-up to deal with your kidney stone and the obstruction observed with your prostate that caused you to form the bladder stone, which I also removed today. We will also need to investigate some other findings on the CT imaging you had done before surgery today.. All the best WBR -DC IV and DC home -Follow-up with PCP in 1 to 2 weeks -Follow-up with Urology in 2 to 3 weeks -Please call Dr. Veliz at [phone] if any questions regarding hospital stay -Please call nursing station at [phone] if any nursing or medication questions -Return to the emergency room if symptoms worsen Diet: Low sodium Activity: Ad keith Followup: Jefry Nagel MD [Primary Care Provider] - Ad Carlson [ACTIVE - CAN ADMIT] - Time spent managing pt's care (in minutes): 35
[2023-06-09 11:45] VITALS: BP 139/75; TEMP 97.6
== END 2023-06-09 11:48 | disposition home or self-care (01) | DRG 660 ==
LOC: ER 09:26 → ERHOLD 15:03 → 4TH 17:30
PROVIDERS: ADMIT Hospitalist; ATTEND Hospitalist
PROC: 0T768DZ Dilation of Right Ureter with Intraluminal Device, Via Natural or Artificial Opening Endoscopic (ICD-10-PCS; principal; 2023-06-07)
PROC: BT1D1ZZ Fluoroscopy of Right Kidney, Ureter and Bladder using Low Osmolar Contrast (ICD-10-PCS; 2023-06-07)
DX: N39.0 Urinary tract infection, site not specified (principal); N17.9 Acute kidney failure, unspecified; N20.2 Calculus of kidney with calculus of ureter; I10 Essential (primary) hypertension; E78.00 Pure hypercholesterolemia, unspecified; K59.09 Other constipation; N35.819 Other urethral stricture, male, unspecified site; I25.10 Atherosclerotic heart disease of native coronary artery without angina pectoris; R73.03 Prediabetes; Z60.2 Problems related to living alone; Z90.49 Acquired absence of other specified parts of digestive tract; Z79.84 Long term (current) use of oral hypoglycemic drugs; Z79.899 Other long term (current) drug therapy
CPT/HCPCS: 36415; 51610; 71045; 74177; 74450; 76770; 80048; 80053; 81001; 82360; 83690; 84484; 85025; 87086; 87088; 88300; 93005; 96361; 96365; 99285; J0171; J0696; J1100; J1644; J2001; J2250; J2405; J2704; J3010; J7030; J7799; Q9967

== ENCOUNTER 2024-07-18 11:51 | Emergency (ER) | payer OTHER, MEDICARE ==
--- NOTE | 2024-07-18 12:45 | RAD REPORT ---
EXAMINATION: CT ABDOMEN AND PELVIS WITHOUT CONTRAST CLINICAL INDICATION: dysuria TECHNIQUE: CT abdomen and pelvis was performed, without IV contrast, as per department protocol. Axia l, sagittal and coronal reconstructions were obtained. One or more of the following dose reduction techniques were used: Automated exposure control, adjustment of the mA and kV according to the patien t size, and iterative reconstruction. Unless otherwise specified, incidental findings do not require dedicated imaging follow-up. COMPARISON: 07/24/2023 FINDINGS: The lack of intravenous contrast limits the sensitivity of this exam for evaluation of solid visceral organs, vascular structures, and retroperitoneum. LOWER CHEST: The visualized lung bases are clear. Small hernia. LIVER:Normal in size and contour. No focal lesion. Cholecystectomy clips. SPLEEN: Normal size. No focal lesion. PANCREAS: No mass, ductal dilation, or sam-pancreatic fluid. ADRENALS: 21 mm left adrenal mass, unchanged. KIDNEYS AND URETERS: Normal size and contour. No hydronephrosis. URINARY BLADDER: Normal contour. GASTROINTESTINAL TRACT: No evidence of bowel obstruction, significant free fluid, free air or abscess . There is moderate diverticulosis coli of the sigmoid colon without diverticulitis. Small fat-containing bleb or hernia. APPENDIX: Normal appendix. LYMPH NODES: No lymphadenopathy. MUSCULOSKELETAL: Mild multilevel spinal degenerative changes. ADDITIONAL FINDINGS: Moderate enlargement of the prostate gland projecting into the urinary bladder b ase. IMPRESSION: No acute or concerning abnormalities in the abdomen or pelvis, with evaluation limited by lack of IV contrast. Moderate prostatomegaly ejecting into the bladder base. Sigmoid diverticulosis coli seen without diverticulitis.
[2024-07-18 13:05] LABS: Absolute Basophils 0.1 K/uL (0-0.5); Absolute Eosinophils 0.2 K/uL (0-0.5); Absolute Lymphocytes (CBC) 1.7 K/uL (0.7-4.9); Absolute Monocytes 0.5 K/uL (0.1-1.3); Absolute Neutrophil 5.2 K/uL (1.8-8.0); Basophils % 0.7 % (0-1.3); Eosinophils % 2.4 % (0-4.4); Hematocrit 37.1 % (39.6-49.0); Hemoglobin 12.8 g/dL (13.6-17.9); Lymphocytes % 21.8 % (15.3-44.8); MCH 33.6 pg (27.0-35.0); MCHC 34.6 g/dL (32.0-36.0); MCV 97.1 fL (80-100); Monocytes % 6.9 % (3.3-12.3); Neutrophils % 68.2 % (41.7-73.7); Platelets 168 thou/uL (152-406); RBC Red Blood Cell Count 3.82 M/uL (4.33-5.43); Red Cell Distribution Width 12.7 % (12.1-15.2)
[2024-07-18 13:12] LABS: Albumin 3.5 g/dL (3.4-5.0); Albumin/Globulin Ratio 1.1 (1.1-1.8); Anion Gap 9.4 mEq/L (5.0-15.0); Bilirubin Total 0.8 mg/dL (0.2-1.0); Globulin 3.3 g/dL (2.3-3.5); Potassium 3.4 mEq/L (3.5-5.1); Protein, Total 6.8 g/dL (6.4-8.2)
[2024-07-18 13:15] LABS: Specific Gravity 1.009 (1.005-1.030); Sqamous Epithelial <5 /HPF (None Seen); Urine Bacteria None Seen /HPF (<20); Urine Bilirubin NEGATIVE (Negative); Urine Blood Negative (Negative); Urine Clarity Clear (Clear); Urine Color Light-Yellow (Yellow); Urine Culture Reflex Order NOT NEEDED; Urine Glucose NEGATIVE (Negative); Urine Ketones NEGATIVE (Negative); Urine Micro Reflex YN NO BILL MICROSCOPIC; Urine Mucus Slight /HPF (None Seen); Urine Nitrite NEGATIVE (Negative); Urine Protein NEGATIVE (Negative); Urine RBC <5 /HPF (None Seen); Urine Urobilinogen Normal (Normal); Urine WBC <5 /HPF (<5); Urine pH 5.5 (5.0-7.0)
--- NOTE | 2024-07-18 13:22 | ER ---
Nurse's Notes [facility] Name: Jignesh Buchanan Age: 74 yrs Sex: Male : 1950 Arrival Date: 07/18/2024 Time: 11:51 Bed 5 Private MD: Diagnosis: Benign prostatic hyperplasia Presentation: 07/18 12:07 Chief complaint: Patient states: URINARY RETENTION SINCE THIS AM, H/O UROLOGY PROBLEMS. hb APPT WITH BETO IN 1 WK. Coronavirus screen: At this time, the client does not indicate any symptoms associated with coronavirus-19. Ebola Screen: No symptoms or risks identified at this time. Initial Sepsis Screen: Does the patient meet any 2 criteria? No. Patient's initial sepsis screen is negative. Does the patient have a suspected source of infection? No. Patient's initial sepsis screen is negative. Risk Assessment: Do you want to hurt yourself or someone else? Patient reports no desire to harm self or others. Onset of symptoms was July 18, 2024 at 06:00. 12:07 Method Of Arrival: Ambulatory hb 12:07 Acuity: NERI 3 hb Triage Assessment: 12:09 General: Appears in no apparent distress. Behavior is calm, cooperative, appropriate hb for age. Pain: Denies pain. EENT: No deficits noted. Neuro: No deficits noted. Cardiovascular: No deficits noted. Respiratory: No deficits noted. GI: No signs and/or symptoms were reported involving the gastrointestinal system. : Reports inability to void, Denies pain in bilateral flank(s). Derm: No deficits noted. Musculoskeletal: No deficits noted. Historical: - Allergies: 12:09 No Known Allergies; hb - PMHx: 12:09 Hyperlipidemia; Hypertension; pre-diabetic; hb - PSHx: 12:09 althea shoulders; Cholecystectomy; left leg; hb - Immunization history:: Adult Immunizations up to date. - Infectious Disease History:: Denies. - Social history:: Smoking status: Patient denies any tobacco usage or history of. - Family history:: not pertinent. Screenin:54 [facility] ED Fall Risk Assessment (Adult) History of falling in the last 3 months, kc6 including since admission No falls in past 3 months (0 pts) Confusion or Disorientation No (0 pts) Intoxicated or Sedated No (0 pts) Impaired Gait No (0 pts) Mobility Assist Device Used No (0 pt) Altered Elimination No (0 pt) Score/Fall Risk Level 0 - 2 = Low Risk Oriented to surroundings. Abuse screen: Denies threats or abuse. Denies injuries from another. Nutritional screening: No deficits noted. Tuberculosis screening: No symptoms or risk factors identified. Assessment: 12:55 General: Appears in no apparent distress. comfortable, well groomed, well developed, kc6 Behavior is calm, cooperative, appropriate for age. Pain: Denies pain. Neuro: Level of Consciousness is awake, alert, obeys commands, Oriented to person, place, time, situation, Appropriate for age. Cardiovascular: Capillary refill < 3 seconds. Respiratory: Airway is patent Trachea midline Respiratory effort is even, unlabored, Respiratory pattern is regular, symmetrical. GI: No signs and/or symptoms were reported involving the gastrointestinal system. : Reports inability to void. EENT: No signs and/or symptoms were reported regarding the EENT system. Derm: No signs and/or symptoms reported regarding the dermatologic system. Skin is intact, is healthy with good turgor, Skin is pink, warm \T\ dry. Musculoskeletal: No signs and/or symptoms reported regarding the musculoskeletal system. Circulation, motion, and sensation intact. Capillary refill < 3 seconds, Range of motion: intact in all extremities. 14:11 Reassessment: Patient appears in no apparent distress at this time. No changes from kc6 previously documented assessment. Patient and/or family updated on plan of care and expected duration. Pain level reassessed. Patient is alert, oriented x 3, equal unlabored respirations, skin warm/dry/pink. Vital Signs: 12:07 BP 140 / 79; Pulse 68; Resp 16; Temp 98; Pulse Ox 99% ; hb 12:57 BP 122 / 71; Pulse 80; Resp 12; Pulse Ox 98% on R/A; rs6 14:11 BP 134 / 72; Pulse 65; Resp 15 S; Pulse Ox 100% on R/A; kc6 ED Course: 11:56 Patient arrived in ED. mr 11:57 Salvatore Malin MD is Attending Physician. rt 12:09 Triage completed. hb 12:09 Arm band placed on. hb 12:13 Nina Gonzalez, RUFINO is Primary Nurse. kc6 12:25 CT Abd/Pelvis - Without Contrast In Process Unspecified. EDMS 12:40 Inserted saline lock: 18 gauge in left antecubital area, using aseptic technique. Blood rs6 collected. Flushed with 10 mL NS. 12:50 PO fluids given. rs6 12:54 Patient has correct armband on for positive identification. Bed in low position. Call kc6 light in reach. Side rails up X 1. Pulse ox on. NIBP on. 12:54 Patient maintains SpO2 saturation greater than 95% on room air. kc6 13:21 Ad Carlson MD is Referral Physician. rt 14:11 No provider procedures requiring assistance completed. IV discontinued, intact, kc6 bleeding controlled, No redness/swelling at site. Pressure dressing applied. Administered Medications: No medications were administered Medication: 14:12 VIS not applicable for this client. kc6 Outcome: 13:22 Discharge ordered by . rt 14:12 Discharged to home ambulatory, kc6 14:12 Condition: good 14:12 Discharge instructions given to patient, Instructed on discharge instructions, follow up and referral plans. medication usage, Demonstrated understanding of instructions, follow-up care, medications, Prescriptions given X 1, 14:12 Patient left the ED. kc6 Signatures: Dispatcher [employer] EDAL Martin Jannette, Reg Reg mr Sonia Parsk, RN Nina Rodas RN RN kc6 Salvatore Malin MD MD rt Salvatore Das rs6
--- NOTE | 2024-07-18 13:22 | EDPHYS ---
Physician Documentation [facility] Name: Jignesh Buchanan Age: 74 yrs Sex: Male : 1950 Arrival Date: 07/18/2024 Time: 11:51 Bed 5 Private MD: ED Physician Salvatore Malin HPI: 07/18 12:20 This 74 yrs old Male presents to ER via Ambulatory with complaints of Urinary Problem. rt 12:20 Patient with previous history of bladder stones presents to the ED with difficulty rt urinating for a few days. States that he is not completely emptying his bladder. Denies any significant pain currently. Denies other acute complaints, symptoms are moderate in severity, no other aggravating or alleviating factors.. Historical: - Allergies: 12: No Known Allergies; hb - PMHx: 12:09 Hyperlipidemia; Hypertension; pre-diabetic; hb - PSHx: 12:09 althea shoulders; Cholecystectomy; left leg; hb - Immunization history:: Adult Immunizations up to date. - Infectious Disease History:: Denies. - Social history:: Smoking status: Patient denies any tobacco usage or history of. - Family history:: not pertinent. ROS: 12:20 Constitutional: Negative for fever, chills, and weight loss, Cardiovascular: Negative rt for chest pain, palpitations, and edema, Respiratory: Negative for shortness of breath, cough, wheezing, and pleuritic chest pain, Abdomen/GI: Negative for abdominal pain, nausea, vomiting, diarrhea, and constipation, Skin: Negative for injury, rash, and discoloration, Neuro: Negative for headache, weakness, numbness, tingling, and seizure, 12:20 : Positive for difficulty urinating, Negative for hematuria, Exam: 12:20 Constitutional: This is a well developed, well nourished patient who is awake, alert, rt and in no acute distress. Head/Face: Normocephalic, atraumatic. Chest/axilla: Normal chest wall appearance and motion. Nontender with no deformity. No lesions are appreciated. Cardiovascular: Regular rate and rhythm with a normal S1 and S2. No gallops, murmurs, or rubs. Normal PMI, no JVD. No pulse deficits. Respiratory: Lungs have equal breath sounds bilaterally, clear to auscultation and percussion. No rales, rhonchi or wheezes noted. No increased work of breathing, no retractions or nasal flaring. Abdomen/GI: Soft, non-tender, with normal bowel sounds. No distension or tympany. No guarding or rebound. No evidence of tenderness throughout. Skin: Warm, dry with normal turgor. Normal color with no rashes, no lesions, and no evidence of cellulitis. MS/ Extremity: Pulses equal, no cyanosis. Neurovascular intact. Full, normal range of motion. Vital Signs: 12:07 BP 140 / 79; Pulse 68; Resp 16; Temp 98; Pulse Ox 99% ; hb 12:57 BP 122 / 71; Pulse 80; Resp 12; Pulse Ox 98% on R/A; rs6 14:11 BP 134 / 72; Pulse 65; Resp 15 S; Pulse Ox 100% on R/A; kc6 MDM: 12:05 Medical Screening Exam initiated rt 13:33 Differential Diagnosis Kidney stone, UTI, BPH. Data reviewed: vital signs, nurses rt notes, lab test result(s), radiologic studies. Independent interpretation of the following test(s) in the Emergency Department CT Scan: My interpretation is No bladder or ureteral stone seen on interpretation of CT scan images, the bladder appears to be decompressed. Care significantly affected by the following chronic conditions: Hypertension. Counseling: I had a detailed discussion with the patient and/or guardian regarding the historical points, exam findings, and any diagnostic results supporting the discharge/admit diagnosis, lab results, radiology results, the need for outpatient follow up, to return to the emergency department if symptoms worsen or persist or if there are any questions or concerns that arise at home. ED course: Patient has a follow-up appointment with his urologist in 1 week. Patient's bladder is decompressed on CT scan, do not believe that he requires catheter at this time, suspect that the patient's symptoms are from BPH, will start tamsulosin. Creatinine is improving, is now normal. No indications for admission at this time, patient stable for outpatient care.. 07/18 12:11 Order name: CBC with Diff; Complete Time: 13:15 rt 07/18 12:11 Order name: CMP; Complete Time: 13:15 rt 07/18 12:11 Order name: UAM; Complete Time: 13:15 rt 07/18 12:11 Order name: CT Abd/Pelvis - Without Contrast; Complete Time: 12:46 rt Administered Medications: No medications were administered Disposition Summary: 07/18/24 13:22 Discharge Ordered Notes: Location: Home rt Problem: new rt Symptoms: are unchanged rt Condition: Stable rt Diagnosis - Benign prostatic hyperplasia rt Followup: rt - With: Ad Carlson MD - When: 1 week - Reason: Discharge Instructions: - Discharge Summary Sheet rt - Benign Prostatic Hyperplasia rt Forms: - Medication Reconciliation Form rt - Antibiotic Education rt - Prescription Opioid Use rt - Patient Portal Instructions rt - Leadership Thank You Letter rt Prescriptions: - tamsulosin 0.4 mg Oral capsule - take 1 capsule ORAL route daily; 30 capsule; Refills: 0, Product Selection rt Permitted Signatures: Dispatcher [employer] Sonia Jackson RN RN Salvatore Lopez MD MD rt
[2024-07-18 14:39] VITALS: TEMP 98
[2024-07-18 14:42] VITALS: BP 134/72; O2SAT 100
== END 2024-07-18 14:12 | disposition home or self-care (01) ==
LOC: ER 11:51
DX: N40.0 Benign prostatic hyperplasia without lower urinary tract symptoms (principal); I10 Essential (primary) hypertension
CPT/HCPCS: 36415; 74176; 80053; 81001; 85025; 99284